=== PATIENT | male | born 1930 | race Caucasian/White ===

== ENCOUNTER 2017-11-13 10:01 | Observation (INO) | payer MEDICARE ==
[2017-11-13 10:46] LABS: #Basophils 0.1 thou/uL (0.0-0.2); #Eosinphils 0.2 thou/uL (0.0-0.7); #Lymphocytes 1.7 thou/uL (1.20-3.40); #Neutrophils 6.8 thou/uL (1.40-6.50); %Basophils 0.6 % (0.0-1.0); %Eosinophils 2.1 % (0.0-10.0); %Lymphocytes 17.8 % (21.0-51.0); %Monocytes 10.2 % (0.0-10.0); %Neutrophils 69.3 % (42.0-75.0); Hemoglobin 13.5 g/dL (14.0-18.0); Mean Corpuscular HGB CONC 34.6 g/dL (32.0-36.0); Mean Corpuscular Volume 86.9 fL (78.0-98.0); Mean Platelet Volume 7.6 fL (7.4-10.4); Platelet Count 206 thou/uL (130-400); RBC Distribution Width 13.2 % (11.5-14.5); White Blood Cell (WBC) Count 9.8 thou/uL (4.8-10.8)
[2017-11-13 11:08] LABS: ALT (SGPT) 14 U/L (8-55); AST (SGOT) 17 U/L (5-34); Albumin 4.1 g/dL (3.4-4.8); Alkaline Phosphatase 92 U/L (40-150); Anion Gap 14 mmol/L (10-20); BUN (Urea Nitrogen) 16 mg/dL (8.4-25.7); Bilirubin, Total 0.5 mg/dL (0.2-1.2); Calc. Creatinine Clearance 0 mL/min (70-130); Calcium 10.2 mg/dL (7.8-10.44); Carbon Dioxide 26 mmol/L (23-31); Chloride 97 mmol/L (98-107); Estimated GFR-MDRD 72; Globulin 3.9 g/dL (2.4-3.5); Glucose 100 mg/dL (83-110); Magnesium 1.9 mg/dL (1.6-2.6); Potassium 3.3 mmol/L (3.5-5.1); Sodium 134 mmol/L (136-145)
[2017-11-13 11:13] LABS: CKMB 1.1 ng/mL (0-6.6); Troponin I Less than 0.010 ng/mL (< 0.028)
[2017-11-13] MEDS ORDERED: Potassium Bicarbonate/Cit Ac 25 MEQ TAB ONE (11:25)
--- NOTE | 2017-11-13 11:25 | RAD ---
PORTABLE CHEST: Date: 11/13/17 PROVIDED CLINICAL HISTORY: Chest pain. FINDINGS: Comparison with 07/10/11. Cardiac and mediastinal silhouette unchanged in appearance. Vascular calcification involves the aorti c arch. Lungs are hypoinflated with probable bibasilar subsegmental atelectatic change. No definite f ocal consolidation, pleural fluid, or pneumothorax apparent. IMPRESSION: No evidence for an acute cardiopulmonary process. POS: [facility]
[2017-11-13] MEDS ORDERED: Loperamide HCl 2 MG CAP PO PRN (13:30)
[2017-11-13] MEDS ORDERED: Acetaminophen 325 MG TAB PO PRN (13:30)
[2017-11-13] MEDS ORDERED: NS 0.9% w/ 20 MEQ KCL 1,000 ML/1,000 ML BAG IV SCH (13:30)
[2017-11-13] MEDS ORDERED: hydrALAZINE 20 MG/ML VIAL SLOW IVP PRN (13:30)
[2017-11-13] MEDS ORDERED: Milk Of Magnesia 30 ML UDCUP PO PRN (13:30)
[2017-11-13] MEDS ORDERED: Eucerin (Mineral Oil/Petrolatum,White) 30 gm Jar TOP PRN (13:30)
[2017-11-13] MEDS ORDERED: Mag-Al 1200 mg/1200 mg/30 ML UDCUP PO PRN (13:30)
[2017-11-13] MEDS ORDERED: HYDROcodone/Acetaminophen 5/325 mg Tablet PO PRN (13:30)
[2017-11-13] MEDS ORDERED: Chloraseptic Spray 180 ml Bottle PO PRN (13:30)
[2017-11-13] MEDS ORDERED: Diabetic Tussin 200 MG/10 ML UDCUP PO PRN (13:30)
[2017-11-13] MEDS ORDERED: Ondansetron ODT 4 MG TAB PO PRN (13:30)
[2017-11-13] MEDS ORDERED: Sodium Chloride 0.65% Nasal 44 ML BOT EA NARE PRN (13:30)
[2017-11-13] MEDS ORDERED: Ondansetron HCl/PF 4 MG/2 ML Vial IVP PRN (13:30)
[2017-11-13] MEDS ORDERED: Artificial Tears 18 DROP/0.9 ML EA EYE PRN (13:30)
[2017-11-13] MEDS ORDERED: Zolpidem Tartrate 5 MG TAB PO PRN (13:30)
[2017-11-13] MEDS ORDERED: Senokot 8.6 MG TAB PO PRN (13:30)
[2017-11-13] MEDS ORDERED: Loratadine 10 MG TAB PO PRN (13:30)
--- NOTE | 2017-11-13 13:35 | HP ---
DATE OF ADMISSION: 11/13/2017 PRIMARY CARE PHYSICIAN: Willem Jorgensen M.D. REASON FOR ADMISSION: Recurrent syncope. HISTORY OF PRESENT ILLNESS: An 87-year-old male who has a history of hypertension, gout, benign enla rgement of prostate, who was brought to emergency room by family member for recurrent syncope. The adrianna vázquez's family member reports that for last 6 weeks, he had 5-6 episodes of syncope. The patient is not a good historian. He reports that before passing out, he sees weird sometimes bright light and sometimes blurred vision, but he attributes it to his macular degeneration. Subsequently, he momenta natalia passes out. He never had any chest pain, palpitation, shortness of breath before passing out or after regaining consciousness. It is also unclear from his description that the patient is complete ly losing his consciousness. This type of episode happens randomly, even at rest, while he is drivin g or walking, but surprisingly he never had any episode related fall or injury. Today in the emergency room, the patient is found with hypokalemia, but the patient is taking diureti c therapy for his hypertension. His routine blood test was otherwise unremarkable. EKG was showing multiple PVCs. At this point, we are admitting this patient for more evaluation. REVIEW OF SYSTEMS: The following complete review of systems was negative, unless otherwise mentioned in the HPI or below: Constitutional: Weight loss or gain, ability to conduct usual activities. Sk in: Rash, itching. Eyes: Double vision, pain. ENT/Mouth: Nose bleeding, neck stiffness, pain, te nderness. Cardiovascular: Palpitations, dyspnea on exertion, orthopnea. Respiratory: Shortness of breath, wheezing, cough, hemoptysis, fever or night sweats. Gastrointestinal: Poor appetite, abdom inal pain, heartburn, nausea, vomiting, constipation, or diarrhea. Genitourinary: Urgency, frequenc y, dysuria, nocturia. Musculoskeletal: Pain, swelling. Neurologic/Psychiatric: Anxiety, depressio n. Allergy/Immunologic: Skin rash, bleeding tendency. Please see my HPI for pertinent positive and negative. All other review of systems reviewed and nega tive except as mentioned in the HPI. ALLERGIES: No known drug allergy. CURRENT HOME MEDICATIONS: Norvasc 10 mg daily, lisinopril 40 mg p.o. daily, allopurinol 100 mg p.o. daily, Proscar 5 mg p.o. daily, hydrochlorothiazide 50 mg p.o. daily, Flomax 0.4 mg p.o. daily, aspir in 325 mg p.o. daily. PAST MEDICAL HISTORY: Macular degeneration followed by flat locker and the patient is getting in tra-ophthalmic injection therapy, gastroesophageal reflux disease, hypertension, gout, osteoarthritis , benign enlargement of prostate. PAST SURGICAL HISTORY: Cataract surgery, surgery for macular degeneration, orthopedic surgery. PAST PSYCHIATRIC HISTORY: Reviewed and negative. SOCIAL HISTORY: The patient lives at home. He drinks alcohol socially. He denies any smoking. He denies any other illicit drug abuse. He is an ex-smoker, but quit smoking more than 10 years ago. FAMILY HISTORY: No strong family history of premature coronary artery disease, stroke or cancer. EMERGENCY ROOM COURSE: The patient is given potassium chloride 25 mEq. PHYSICAL EXAMINATION: VITAL SIGNS: On arrival, blood pressure 145/71, pulse 70, respiratory rate 18, temperature 98.1, sat uration 94% on room air, weight 79.4 kilograms. GENERAL: The patient is currently alert, awake, in no obvious acute distress. HEAD: Normocephalic, atraumatic. EYES: Pupils round and reactive to light. Extraocular muscle intact. ENT: Oropharynx within normal limits. Moist mucous membrane. No oral lesion, no pharyngeal erythem a, no exudate. NECK: Supple, no JVD, no thyromegaly, no carotid bruit, no jugular venous distention. LUNGS: Clear to auscultation without any rhonchi or rales. CARDIAC: S1, S2 regular. Occasional premature ventricular contractions felt. No murmur elicited, n o gallop, no rub. ABDOMEN: Soft, bowel sounds present, nontender, nondistended. No organomegaly, no mass, no suprapub ic tenderness. BACK: Unremarkable. No CVA tenderness. EXTREMITIES: Upper extremities, passive movement of all joints are normal. Lower extremities, no ed grace, no calf tenderness. Good distal pulsation. SKIN: No skin rash. HEMATOLOGICAL: No lymphadenopathy. PSYCHIATRIC: Normal affect. NEUROLOGIC: Nonfocal examination. Motor 5/5 in all four limbs. Sensation bilaterally symmetrical. The patient has difficulty performing cerebellar sign because of his macular degeneration and chroni c blurred vision. Cranial nerves II-XII intact. Reflexes symmetrical. Plantar bilateral flexor. SIGNIFICANT LABORATORY DATA: EKG showing normal sinus rhythm, premature ventricular complexes. Ches t x-ray based on my review, no acute cardiopulmonary process. CBC, WBC 9.8, hemoglobin 13.5, platele t 206,000. BMP, sodium 134, potassium 3.3, chloride 97, carbon dioxide 26, BUN 16, creatinine 0.99, glucose 100, calcium 10.2. LFT, AST 17, ALT 14, alkaline phosphatase 92, albumin 4.1, magnesium 1.9. Cardiac enzymes, CK-MB 1.1. Troponin less than 0.010. TSH 2.09. ASSESSMENT AND PLAN: 1. Recurrent syncope, unexplained. At this point, the patient will need more evaluation to determin e the etiology. We will obtain echocardiography to assess ejection fraction and other structural abn ormality. Telemetry monitoring for any kind of ventricular or atrial arrhythmia. Orthostatic vitals to rule out orthostatic hypotension. Carotid ultrasound to rule out any carotid stenosis. Based on this investigation, we will decide whether he needs any more investigation like MRI or not. If all investigations are negative, then the patient was advised to follow up with Cardiology as an outpatie nt basis for Holter monitoring. 2. Hyponatremia and hypokalemia. We will give him 1 liter of NS with KCl at 75 mL per hour. Most l ikely, these abnormal electrolytes are related with his hydrochlorothiazide. 3. Hypertension. We will continue the patient's home medication of lisinopril 40 mg p.o. daily, Nor vasc 10 mg p.o. daily. We are holding hydrochlorothiazide for this reason because of abnormal electr olytes. 4. Benign enlargement of prostate. We will continue with Flomax 0.4 mg p.o. daily, Proscar 5 mg p.o . daily. 5. Gout. We will continue allopurinol 100 mg p.o. daily. 6. Deep venous thrombosis prophylaxis not needed because we are expecting discharge in 24 hours. 7. Gastrointestinal prophylaxis, Pepcid 20 mg p.o. b.i.d. 8. Code status: The patient is full code. The patient's is surrogate decision maker. Disposition plan based on clinical course. We are expecting the patient's stay in hospital 24 hours. During this admission, we will also rule out acute coronary syndrome with serial cardiac enzyme. P sandrine of care discussed with the patient and family member at bedside in the emergency room.
[2017-11-13 14:06] VITALS: BMI 26.6
[2017-11-13 14:52] LABS: Troponin I Less than 0.010 ng/mL (< 0.028)
[2017-11-13 17:36] LABS: Troponin I Less than 0.010 ng/mL (< 0.028)
--- NOTE | 2017-11-13 17:54 | ULT ---
BILATERAL CAROTID DOPPLER ULTRASOUND 11/13/17 HISTORY: Syncope. COMPARISON: None. TECHNIQUE: Real time almaraz scale, color doppler and spectral analysis of the extracranial carotid arteries and ve rtebral arteries was performed. Abnormal increased peak systolic velocity within the left internal carotid artery. Antegrade flow bot h vertebral arteries. Extensive atherosclerotic plaque. IMPRESSION: 50-60% stenosis right internal carotid artery. Nonemergent CT angiogram may be beneficial if clinical ly warranted. POS: [facility]
[2017-11-13] MEDS: Famotidine 20 MG TAB PO SCH (20:19)
[2017-11-14 04:07] LABS: #Eosinphils 0.5 thou/uL (0.0-0.7); #Lymphocytes 1.7 thou/uL (1.20-3.40); #Monocytes 0.8 thou/uL (0.11-0.59); #Neutrophils 4.4 thou/uL (1.40-6.50); %Basophils 0.5 % (0.0-1.0); %Eosinophils 6.9 % (0.0-10.0); %Lymphocytes 22.9 % (21.0-51.0); %Monocytes 10.7 % (0.0-10.0); %Neutrophils 59.1 % (42.0-75.0); Hemoglobin 12.5 g/dL (14.0-18.0); Mean Corpuscular HGB CONC 34.8 g/dL (32.0-36.0); Mean Corpuscular Hemoglobin 30.6 pg (27.0-31.0); Mean Corpuscular Volume 87.8 fL (78.0-98.0); Mean Platelet Volume 7.6 fL (7.4-10.4); Platelet Count 198 thou/uL (130-400); RBC Distribution Width 13.2 % (11.5-14.5); Red Blood Cell (RBC) Count 4.09 mill/uL (4.70-6.10); White Blood Cell (WBC) Count 7.5 thou/uL (4.8-10.8)
[2017-11-14 04:23] LABS: Anion Gap 13 mmol/L (10-20); BUN (Urea Nitrogen) 12 mg/dL (8.4-25.7); Calc. Creatinine Clearance 71 mL/min (70-130); Calcium 9.5 mg/dL (7.8-10.44); Carbon Dioxide 25 mmol/L (23-31); Chloride 101 mmol/L (98-107); Estimated GFR-MDRD 85; Glucose 111 mg/dL (83-110); Potassium 3.8 mmol/L (3.5-5.1); Sodium 135 mmol/L (136-145)
[2017-11-14] MEDS: Amlodipine 10 MG TAB PO SCH (09:26)
[2017-11-14] MEDS: Aspirin 325 MG TAB PO SCH (09:26)
[2017-11-14] MEDS: Allopurinol 100 MG TAB PO SCH (09:26)
[2017-11-14] MEDS: Famotidine 20 MG TAB PO SCH ×2 (09:27→20:24)
[2017-11-14] MEDS: Lisinopril 20 MG TAB PO SCH (09:27)
[2017-11-14] MEDS: Tamsulosin HCl 0.4 MG CAP PO SCH (09:27)
[2017-11-14] MEDS: Finasteride 5 MG TAB PO SCH (09:27)
--- NOTE | 2017-11-14 13:36 | PDOC.PN ---
- Subjective Encounter Start Date: 11/14/17 Encounter Start Time: 13:20 Subjective: nsg notes rev, keith ovn, no further episodes - Objective Resuscitation Status: Resuscitation Status FULL:Full Resuscitation Vital Signs & Weight: Vital Signs (12 hours) Temp Pulse Resp BP BP BP BP 11/14/17 11:13 97.5 F L 66 18 156/70 H 11/14/17 09:27 134/75 11/14/17 09:26 51 L 131/75 11/14/17 07:39 98 F 51 L 20 123/73 123/67 11/14/17 04:09 97.9 F 74 16 147/79 H BP Pulse Ox 11/14/17 11:13 95 11/14/17 09:27 11/14/17 09:26 11/14/17 07:39 131/75 94 L 11/14/17 04:09 82 L Weight Weight 175 lb I&O: 11/13/17 11/14/17 11/15/17 06:59 06:59 06:59 Intake Total 2225 360 Output Total 825 Balance 1400 360 Result Diagrams: 11/14/17 03:32 11/14/17 03:32 Phys Exam - Physical Examination Constitutional: NAD seated in hospital bed HEENT: moist MMs, oral pharynx no lesions Respiratory: no wheezing, no rales, no rhonchi, clear to auscultation bilateral Cardiovascular: RRR, no significant murmur, no rub tele rev - PVCs Gastrointestinal: soft, positive bowel sounds Musculoskeletal: no edema, pulses present Neurological: moves all 4 limbs Psychiatric: normal affect Dx/Plan - Plan * brief near-syncope type neurological events * had some orthostasis on admission along with hypokalemia * HCTZ was discontinued, hypokalemia and orthostasis has resolved without recurrence today; however, given the descriptive nature of the patient's "episodes" concern for a partial/ absence/ atypical seizure type activity. appreciate neurology c/s and input * continue to closely monitor SBP and re-check orthostatics tomorrow PVCs noted on monitor but temporally do not appear to be associated with episodes continue telemetry hypertension relative hypotension on presentation titrate o/p regimen to avoid orthostasis and control HTN diet: as yuniel activity: as yuniel dvt ppx d/w pt and his at bedside d/w bedside nursing Review of Systems - Medications/Allergies Allergies/Adverse Reactions: Allergies Allergy/AdvReac Type Severity Reaction Status Date / Time No Known Allergies Allergy Verified 11/13/17 14:24 Medications: Current Medications Acetaminophen (Tylenol) 650 mg PO Q4H PRN PRN Reason: Headache/Fever or Pain Hydrocodone Bitart/Acetaminophen ([place] 5/325) 1 tab PO Q4H PRN PRN Reason: Moderate Pain (4-6) Al Hydroxide/Mg Hydroxide (Maalox) 30 ml PO Q6H PRN PRN Reason: Heartburn or Indigestion Allopurinol (Zyloprim) 100 mg PO DAILY [facility] Last Admin: 11/14/17 09:26 Dose: 100 mg Amlodipine Besylate (Norvasc) 10 mg PO DAILY [facility] Last Admin: 11/14/17 09:26 Dose: 10 mg Artificial Tears (Tears Naturale) 0 drop EA EYE PRN PRN PRN Reason: Dry Eyes Aspirin (Aspirin) 325 mg PO DAILY [facility] Last Admin: 11/14/17 09:26 Dose: 325 mg Famotidine (Pepcid) 20 mg PO BID [facility] Last Admin: 11/14/17 09:27 Dose: 20 mg Finasteride (Proscar) 5 mg PO DAILY [facility] Last Admin: 11/14/17 09:27 Dose: 5 mg Guaifenesin (Robitussin Sf) 200 mg PO Q4H PRN PRN Reason: Cough Hydralazine HCl (Apresoline) 10 mg SLOW IVP Q4H PRN PRN Reason: Systolic BP > 180 Lisinopril (Zestril) 40 mg PO DAILY [facility] Last Admin: 11/14/17 09:27 Dose: 40 mg Loperamide HCl (Imodium) 2 mg PO PRN PRN PRN Reason: Diarrhea/Loose Stools Loratadine (Claritin) 10 mg PO DAILYPRN PRN PRN Reason: Sinus Symptoms Magnesium Hydroxide (Milk Of Magnesium) 30 ml PO DAILYPRN PRN PRN Reason: Constipation Mineral Oil/White Petrolatum (Eucerin Cream) 0 gm TOP BIDPRN PRN PRN Reason: Dry Skin Ondansetron HCl (Zofran Odt) 4 mg PO Q6H PRN PRN Reason: Nausea/Vomiting Ondansetron HCl (Zofran) 4 mg IVP Q6H PRN PRN Reason: Nausea/Vomiting Phenol (Chloraseptic [place] 180 Ml Bot) 0 ml PO PRN PRN PRN Reason: Sore Throat Senna (Senokot) 2 tab PO HSPRN PRN PRN Reason: Constipation Sodium Chloride ([place] Nasal [place] 0.65%) 0 ml EA NARE QIDPRN PRN PRN Reason: Nasal Congestion Tamsulosin HCl (Flomax) 0.4 mg PO DAILY [facility] Last Admin: 11/14/17 09:27 Dose: 0.4 mg Zolpidem Tartrate (Ambien) 5 mg PO HSPRN PRN PRN Reason: Insomnia
--- NOTE | 2017-11-14 13:58 | CON ---
DATE OF CONSULTATION: 11/14/2017 CONSULTING PHYSICIAN: Hospitalist Service. IMPRESSION: Possible partial seizures. PLAN: 1. MRI of the brain with contrast. 2. Dilantin 300 mg per day. 3. Office followup. HISTORY OF PRESENT ILLNESS: Mr. Ortiz is an 87-year-old gentleman who presented with a 6-week hist ory of episodes where he briefly loses awareness. He reports there is some mild nausea associated wi th it, but he denies any chest pain, throat tightness, shortness of breath, headache, or palpitations . He has had in both sitting as well as standing up. He has not fallen down due to the brevity of t he events. He apparently had 2 episodes captured on EKG monitoring, nothing remarkable was found. Seng medina made some adjustments in his blood pressure medicine to see if that has any impact on it. I was called to give a neurologic opinion. PAST MEDICAL HISTORY: Otherwise, unremarkable. FAMILY HISTORY: Noncontributory. SOCIAL HISTORY: He is and lives at home with his . He is still driving. He does not sm frandy or drink. MEDICATION: List is reviewed. REVIEW OF SYSTEMS: Otherwise, negative for any past history of stroke-like symptoms, head injuries, meningitis or encephalitis. PHYSICAL EXAMINATION: GENERAL: He is a well-nourished elderly man sitting up at the bedside in no distress. HEENT: Pupils equal and reactive. Conjunctivae clear. Oropharynx is clear. NECK: Supple. EXTREMITIES: No cyanosis. NEUROLOGIC: He is alert and appropriate. His exam is nonfocal. No abnormal movements were seen. IMAGING DATA: Carotid ultrasound did not show any significant stenosis. Echocardiogram is pending. LABORATORY STUDIES: Reviewed and appear unremarkable. SUMMARY: Elderly man with a 6-week history of brief episodes of alteration of consciousness. He reynaga s not seem to have an arrhythmia to explain his symptoms. Brief hypotension would be a consideration as well. We will give him a trial of Dilantin and see if it alters the frequency of his events.
--- NOTE | 2017-11-14 17:20 | MRI ---
MRI BRAIN WITH AND WITHOUT CONTRAST: HISTORY: Seizures. COMPARISON: CT brain from the prior day. FINDINGS: On the T2 weighted imaging sequence, there are no abnormal areas of acute diffusion restriction to chatterjee ggest infarction. This is confirmed on the ADC map. There is right parietal and frontal and left parietal encephalomalacia. There are extensive microvas cular ischemic changes in the mao radiata. 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 No midline shift or mass effect. Erosive changes of the odontoid process are present. Marrow signal in the clivus is maintained. The corpus callosum is intact. No abnormal foci of enhancement. IMPRESSION: 1. Chronic changes. No acute hemorrhage or infarct. 2. No abnormal enhancing mass. POS: [facility]
[2017-11-15 04:41] LABS: #Eosinphils 0.4 thou/uL (0.0-0.7); #Lymphocytes 1.6 thou/uL (1.20-3.40); #Monocytes 0.9 thou/uL (0.11-0.59); %Basophils 0.4 % (0.0-1.0); %Eosinophils 4.8 % (0.0-10.0); %Monocytes 11.3 % (0.0-10.0); %Neutrophils 63.4 % (42.0-75.0); Hemoglobin 12.2 g/dL (14.0-18.0); Mean Corpuscular HGB CONC 34.2 g/dL (32.0-36.0); Mean Corpuscular Hemoglobin 29.8 pg (27.0-31.0); Mean Corpuscular Volume 87.2 fL (78.0-98.0); Mean Platelet Volume 7.5 fL (7.4-10.4); Platelet Count 195 thou/uL (130-400); RBC Distribution Width 13.1 % (11.5-14.5); White Blood Cell (WBC) Count 7.9 thou/uL (4.8-10.8)
[2017-11-15 04:50] LABS: Anion Gap 15 mmol/L (10-20); BUN (Urea Nitrogen) 12 mg/dL (8.4-25.7); Calc. Creatinine Clearance 74 mL/min (70-130); Calcium 9.7 mg/dL (7.8-10.44); Carbon Dioxide 22 mmol/L (23-31); Chloride 102 mmol/L (98-107); Estimated GFR-MDRD 89; Glucose 115 mg/dL (83-110); Potassium 3.1 mmol/L (3.5-5.1); Sodium 136 mmol/L (136-145)
[2017-11-15] MEDS ORDERED: Potassium Chloride 20 MEQ TAB PO SCH (07:45)
[2017-11-15] MEDS ORDERED: Iopamidol 370 76% 100 ML VIAL ONE (08:28)
[2017-11-15] MEDS: Lisinopril 20 MG TAB PO SCH (08:43)
[2017-11-15] MEDS: Aspirin 325 MG TAB PO SCH (08:43)
[2017-11-15] MEDS: Finasteride 5 MG TAB PO SCH (08:44)
[2017-11-15] MEDS: Tamsulosin HCl 0.4 MG CAP PO SCH (08:44)
[2017-11-15] MEDS: Allopurinol 100 MG TAB PO SCH (08:44)
[2017-11-15] MEDS: Famotidine 20 MG TAB PO SCH (08:44)
[2017-11-15] MEDS: Amlodipine 10 MG TAB PO SCH (08:44)
--- NOTE | 2017-11-15 11:08 | PDOC.PN ---
- Subjective Encounter Start Date: 11/15/17 Encounter Start Time: 07:40 -: old records requested/rev pt did not tolerate dilantin therapy and he does not want that meds on discharge - Objective Resuscitation Status: Resuscitation Status FULL:Full Resuscitation MAR Reviewed: Yes Vital Signs & Weight: Vital Signs (12 hours) Temp Pulse Resp BP BP Pulse Ox 11/15/17 08:43 160/90 H 11/15/17 07:32 98.1 F 83 20 116/67 95 11/15/17 03:43 98.2 F 65 20 150/91 H 94 L Weight Weight 170 lb I&O: 11/14/17 11/15/17 11/16/17 06:59 06:59 06:59 Intake Total 2225 1920 360 Output Total 825 700 Balance 1400 1220 360 Result Diagrams: 11/15/17 03:46 11/15/17 03:46 EKG Reviewed by me: Yes (nsr) Phys Exam - Physical Examination Constitutional: NAD HEENT: PERRLA, moist MMs, sclera anicteric Neck: no JVD, supple Respiratory: no wheezing, no rales, no rhonchi Cardiovascular: RRR, no significant murmur, no rub Gastrointestinal: soft, non-tender, no distention, positive bowel sounds Musculoskeletal: no edema, pulses present Neurological: non-focal, normal sensation Lymphatic: no nodes Psychiatric: normal affect, A&O x 3 Skin: no rash, normal turgor Dx/Plan (1) Carotid stenosis, right Code(s): I65.21 - OCCLUSION AND STENOSIS OF RIGHT CAROTID ARTERY Status: Acute (2) Hypokalemia Code(s): E87.6 - HYPOKALEMIA Status: Acute (3) Partial seizure Status: Suspected (4) Recurrent syncope Code(s): R55 - SYNCOPE AND COLLAPSE Status: Acute (5) BPH (benign prostatic hyperplasia) Code(s): N40.0 - BENIGN PROSTATIC HYPERPLASIA WITHOUT LOWER URINRY TRACT SYMP Status: Chronic (6) Gout Code(s): M10.9 - GOUT, UNSPECIFIED Status: Chronic (7) Hypertension Code(s): I10 - ESSENTIAL (PRIMARY) HYPERTENSION Status: Chronic - Plan cont current plan of care, plan discussed w/ family * will get CT angio neck for carotid stenosis on US * medication reviewed as below * symptomatic treatment * pt does not want dilantin * will consider discharge later today * add lipitor on discharge. Review of Systems - Review of Systems ENT: negative: Ear Pain, Ear Discharge, Nose Pain, Nose Discharge, Nose Congestion, Mouth Pain, Mouth Swelling, Throat Pain, Throat Swelling, Other Respiratory: negative: Cough, Dry, Shortness of Breath, Hemoptysis, SOB with Excertion, Pleuritic Pain, Sputum, Wheezing Cardiovascular: negative: chest pain, palpitations, orthopnea, paroxysmal nocturnal dyspnea, edema, light headedness, other Gastrointestinal: negative: Nausea, Vomiting, Abdominal Pain, Diarrhea, Constipation, Melena, Hematochezia, Other Genitourinary: negative: Dysuria, Frequency, Incontinence, Hematuria, Retention , Other Musculoskeletal: negative: Neck Pain, Shoulder Pain, Arm Pain, Back Pain, Hand Pain, Leg Pain, Foot Pain, Other Skin: negative: Rash, Lesions, [place], Bruising, Other - Medications/Allergies Allergies/Adverse Reactions: Allergies Allergy/AdvReac Type Severity Reaction Status Date / Time No Known Allergies Allergy Verified 11/13/17 14:24 Medications: Current Medications Acetaminophen (Tylenol) 650 mg PO Q4H PRN PRN Reason: Headache/Fever or Pain Hydrocodone Bitart/Acetaminophen ([place] 5/325) 1 tab PO Q4H PRN PRN Reason: Moderate Pain (4-6) Al Hydroxide/Mg Hydroxide (Maalox) 30 ml PO Q6H PRN PRN Reason: Heartburn or Indigestion Allopurinol (Zyloprim) 100 mg PO DAILY [facility] Last Admin: 11/15/17 08:44 Dose: 100 mg Amlodipine Besylate (Norvasc) 10 mg PO DAILY [facility] Last Admin: 11/15/17 08:44 Dose: 10 mg Artificial Tears (Tears Naturale) 0 drop EA EYE PRN PRN PRN Reason: Dry Eyes Aspirin (Aspirin) 325 mg PO DAILY [facility] Last Admin: 11/15/17 08:43 Dose: 325 mg Famotidine (Pepcid) 20 mg PO BID [facility] Last Admin: 11/15/17 08:44 Dose: 20 mg Finasteride (Proscar) 5 mg PO DAILY [facility] Last Admin: 11/15/17 08:44 Dose: 5 mg Guaifenesin (Robitussin Sf) 200 mg PO Q4H PRN PRN Reason: Cough Hydralazine HCl (Apresoline) 10 mg SLOW IVP Q4H PRN PRN Reason: Systolic BP > 180 Lisinopril (Zestril) 40 mg PO DAILY [facility] Last Admin: 11/15/17 08:43 Dose: 40 mg Loperamide HCl (Imodium) 2 mg PO PRN PRN PRN Reason: Diarrhea/Loose Stools Loratadine (Claritin) 10 mg PO DAILYPRN PRN PRN Reason: Sinus Symptoms Magnesium Hydroxide (Milk Of Magnesium) 30 ml PO DAILYPRN PRN PRN Reason: Constipation Mineral Oil/White Petrolatum (Eucerin Cream) 0 gm TOP BIDPRN PRN PRN Reason: Dry Skin Ondansetron HCl (Zofran Odt) 4 mg PO Q6H PRN PRN Reason: Nausea/Vomiting Ondansetron HCl (Zofran) 4 mg IVP Q6H PRN PRN Reason: Nausea/Vomiting Phenol (Chloraseptic [place] 180 Ml Bot) 0 ml PO PRN PRN PRN Reason: Sore Throat Phenytoin Sodium (Dilantin Er) 300 mg PO QPM [facility] Last Admin: 11/14/17 20:24 Dose: 300 mg Senna (Senokot) 2 tab PO HSPRN PRN PRN Reason: Constipation Last Admin: 11/14/17 20:23 Dose: 2 tab Sodium Chloride ([place] Nasal [place] 0.65%) 0 ml EA NARE QIDPRN PRN PRN Reason: Nasal Congestion Tamsulosin HCl (Flomax) 0.4 mg PO DAILY [facility] Last Admin: 11/15/17 08:44 Dose: 0.4 mg Zolpidem Tartrate (Ambien) 5 mg PO HSPRN PRN PRN Reason: Insomnia
[2017-11-15 12:05] VITALS: BP 131/87; TEMP 97.5
--- NOTE | 2017-11-15 12:27 | CT ---
CT ANGIOGRAM OF NECK: Date: 11/15/17 HISTORY: Abnormal carotid ultrasound. Moderate stenosis of the right internal carotid artery based on sonograp hy. TECHNIQUE: CT angiogram of the neck is performed in the axial plane. Three-dimensional reformatted images are chatterjee bmitted for interpretation. FINDINGS: Mild mucosal thickening involving the left maxillary sinus. Adequate mastoid air cell aeration. Visua lized brain parenchyma is unremarkable. Aerodigestive tract is patent. No mucosal abnormality. [place] e fatty [place] of the tongue is preserved. Symmetric attenuation of the parotid and submandibular glands. Symmetric attenuation of the sternocleidomastoid muscles. There are nonspecific, nonenlarged soft tissue neck lymph nodes. Heterogeneous right thyroid lobe. Nonemergent thyroid ultrasound is recommended. There are varying degrees of central canal stenosis and foraminal narrowing on the basis of degenerat maya change. There is degenerative disc disease throughout the cervical spine with loss of disc space height and osteophyte formation. Grade I anterolisthesis of C5 upon C6. Cervical spine vertebral body height is maintained. There is no fracture. Upper mediastinum is unremarkable. Nonspecific ground-glass opacities in the lung apices. CT ANGIOGRAM: There is atherosclerosis of a nonaneurysmal aortic arch. Right Carotid: The origin of the right carotid artery has appropriate enhancement and luminal diamet er. Atherosclerosis of calcified and noncalcified plaque in the right carotid bifurcation and proxima l internal carotid artery. No evidence of hemodynamically significant stenosis based upon NASCET crit eria. There is a sharp hairpin turn involving the mid internal carotid artery at approximately the C3 level. Left Carotid: The origin of the left carotid artery has appropriate enhancement and luminal diameter . Left common carotid artery and carotid bifurcation have appropriate enhancement and luminal diameter. There is calcified plaque involving the proximal left internal carotid artery. Based upon NASCET cri teria, there does appear to be hemodynamically significant stenosis involving the proximal left inter nal carotid artery. Luminal diameter appears to be approximately 2.7 mm. There is a hairpin turn invo lving the mid left internal carotid artery at the C3 level. There is resultant medial deviation of th e left and right internal carotid artery with mass effect upon the hypopharynx posteriorly. The remai nder of the left internal carotid artery is unremarkable. Both subclavian arteries are patent. Both vertebral artery origins are unremarkable. Both cervical vertebral arteries are patent throughou t their course in the neck. IMPRESSION: Atherosclerosis involving both carotid arteries. Based upon NASCET criteria, there does appear to be severe stenosis involving the proximal left internal carotid artery. Conventional angiography may be beneficial to better evaluate the overall luminal diameter given extensive calcified plaque bilateral ly. POS: [facility]
--- NOTE | 2017-11-15 13:20 | DIS ---
DATE OF ADMISSION: 11/13/2017 DATE OF DISCHARGE: 11/15/2017 PRIMARY CARE PHYSICIAN: Dr. Willem Jorgensen. DISCHARGE DISPOSITION: Home. PRIMARY DISCHARGE DIAGNOSES: 1. Recurrent syncope. 2. Hypokalemia. 3. Right carotid stenosis. SECONDARY DISCHARGE DIAGNOSES: Hypertension, gout, benign enlargement of prostate. PRIMARY PROCEDURE AND OPERATION: None. RADIOLOGICAL INVESTIGATION: Chest x-ray normal. Carotid Doppler showed right carotid stenosis. CT angiography neck showed carotid stenosis with a calcified plaque. Echocardiography showed normal EF. Brain MRI showed old lacunar stroke and encephalomalacia. SIGNIFICANT LABORATORY DATA: WBC 7.9, hemoglobin 12.2, platelet 195. Sodium 136, potassium 3.1, BUN 12, creatinine 0.82, calcium 9.7. Cardiac enzymes negative x3. TSH 2.09. LFT normal. DISCHARGE MEDICATIONS: Aspirin 325 mg p.o. daily, Lipitor 10 mg p.o. daily, amlodipine 10 mg p.o. da gildardo, allopurinol 100 mg p.o. daily, Proscar 5 mg p.o. daily, lisinopril 40 mg p.o. daily, multivitami n 2 tablets p.o. b.i.d., Senokot 1 tablet p.o. daily p.r.n., Flomax 0.4 mg p.o. daily. CONTRAINDICATIONS: None. CODE STATUS: FULL CODE. INPATIENT CONSULTANTS: 1. Dr. Alvaro Gutierrez, neurologist, was consulted while in hospital. He recommended Dilantin therapy, but this patient did not want to continue Dilantin therapy upon discharge, because he did not tolera te that medication. He rather wanted to follow up with him as an outpatient basis to decide alternat maya therapy. 2. Dr. Jonathan Champion was consulted for carotid stenosis. TEST RESULTS PENDING ON DISCHARGE: None. ALLERGIES: No known drug allergy. DISCHARGE PLAN: Post hospital, the patient will follow up with primary care physician, Neurology, an d Dr. Jonathan Champion as instructed. HOSPITAL COURSE: An 87-year-old male who has above-mentioned medical problem who was brought to [facility] room by family member for recurrent syncope. This patient had a workup in the emergency room, which was unremarkable. He had mild hyponatremia, hypokalemia which was replaced and corrected. The patient had negative cardiac enzyme and negative quality assurance monitor chassis. Carotid Doppler showed carotid stenosis on the right side and that is why CT angio was done, which showed right-sided carotid stenos is with a calcified plaque. We consulted Dr. Jonathan Champion for evaluation. This patient may need ou tpatient surgical evaluation if needed. Echocardiography was unremarkable. MRI brain showed old str frandy. Dr. John was consulted and he was suspecting partial seizure and that is why he recommended to start Dilantin therapy, but unfortunately, this patient had significant side effects with the Dila ntin therapy and he did not want to start any seizure medication. He will follow up with Dr. John as an outpatient basis. The patient is seen and examined at bedside today. Please see my progress note from today for furthe r detail. We added Lipitor on discharge. The rest of medication will be continued as per previous. Plan of care discussed with the patient's family member as well.
--- NOTE | 2017-11-15 14:56 | CON ---
DATE OF CONSULTATION: 11/15/2017 DATE OF ADMISSION: 11/13/2017 REASON FOR CONSULTATION: Evaluate the patient with bilateral carotid stenosis. HISTORY OF PRESENT ILLNESS: Mr. Ortiz is an 87-year-old gentleman, who was admitted with ocular sy mptoms and near syncope. He has a longstanding history of macular degeneration and is treated with i njections by Dr. Pena. He says that he has had a couple of episodes recently of near syncope where j ust prior to feeling like he was going to pass out he would see bright lights and explosions before h is eyes and then get this feeling of near syncope. Then he would feel very washed out after this hap pened. He has no previous history of carotid disease, stroke, TIA, [place], or congestive heart failure. PAST MEDICAL HISTORY: 1. Macular degeneration. 2. GERD. 3. Hypertension. 4. Gout. 5. Osteoarthritis. 6. BPH. PAST SURGICAL HISTORY: 1. Cataract surgery. 2. Macular degeneration surgery. 3. Orthopedic surgery. CURRENT MEDICATIONS: 1. Norvasc 10 mg every day. 2. Lisinopril 40 mg every day. 3. Allopurinol 100 mg every day. 4. Proscar 5 mg every day. 5. HCTZ 50 mg daily. 6. Flomax 0.4 mg daily. 7. Aspirin 325 mg every day. ALLERGIES: None. SOCIAL HISTORY: He is . He lives with his at home. His daughter is a day-stay nurse. He does not use tobacco, alcohol, or other drugs. REVIEW OF SYSTEMS: A 10-point review of systems is, otherwise, negative except as above. PHYSICAL EXAMINATION: GENERAL: This is an elderly gentleman, resting comfortably in a chair in his room, waiting to be dis charged. VITAL SIGNS: His height is 5 feet 8 inches, weight is 175 pounds, BSA is 1.92. Temperature is 97.5, pulse is 88 and regular, blood pressure is 131/87. HEENT: Sclerae nonicteric. Pupils equal and round bilaterally. NECK: Supple, without carotid bruit. CHEST: Clear bilaterally. HEART: Rhythm is regular, without murmur. ABDOMEN: Soft and nontender, without mass. EXTREMITIES: No cyanosis, clubbing, or edema. VASCULAR: Palpable carotid, radial, femoral, and dorsalis pedis pulses bilaterally. PSYCHIATRIC: The patient is awake, alert, and oriented to person, place, and time. RADIOLOGY: Carotid ultrasound shows a 50%-69% stenosis of the right carotid artery. There is no rep orted significant left carotid disease. CT angiogram has been performed showing a greater than 70% l eft internal carotid artery stenosis. His right internal carotid artery has multiple areas of intral uminal encroachment from calcified and noncalcified plaque concerning for embolic potential. ASSESSMENT AND PLAN: Bilateral significant carotid disease. I have discussed left carotid endartere ctomy followed by a period of time of healing and right carotid endarterectomy to follow that. He is agreeable. He is going to be discharged today to see his infection control coordinator as an outpatient, and we w ill plan on surgical intervention as he calls our office to schedule.
--- NOTE | 2017-11-20 11:53 | EKG ---
Test Reason : Blood Pressure : / mmHG Vent. Rate : 086 BPM Atrial Rate : 086 BPM P-R Int : 180 ms QRS Dur : 100 ms QT Int : 378 ms P-R-T Axes : 040 -15 043 degrees QTc Int : 452 ms Sinus rhythm with frequent Premature ventricular complexes Low voltage QRS Borderline ECG Confirmed by HARSHAL GERMAN DO ([id number]), editorial clerk HIRAM SESAY ([id number]) on 11/20/2017 11:53:03 AM Referred By: Confirmed By:HARSHAL GERMAN DO
== END 2017-11-15 15:15 | disposition home or self-care (01) ==
LOC: ERS 10:01 → 2SW 12:28
PROVIDERS: ADMIT Internal Medicine; ATTEND Internal Medicine
DX: R55 Syncope and collapse (principal); E87.6 Hypokalemia; I65.29 Occlusion and stenosis of unspecified carotid artery; I10 Essential (primary) hypertension; N20.0 Calculus of kidney; Z79.82 Long term (current) use of aspirin; Z79.899 Other long term (current) drug therapy
CPT/HCPCS: 70498; 70553; 71045; 80048 ×2; 82553; 83735; 84484 ×2; 85025 ×2; 93005; 93306; 93880; 96365; 96366 ×2; 99285; G0378 ×2; 36415; 80053; 84443

== ENCOUNTER 2017-11-19 05:45 | Inpatient (IN) | payer MEDICARE, OTHER ==
[2017-11-19] MEDS ORDERED: Heparin 5,000 UNITS/ML VIAL ONE ×2 (06:02→06:31)
[2017-11-19] MEDS ORDERED: CEFAZOLIN/Water 2 GM/20 ML SYRINGE ONE (06:03)
[2017-11-19] MEDS ORDERED: Protamine Sulfate 50 MG/5 ML VIAL ONE (06:31)
[2017-11-19] MEDS ORDERED: Remifentanil HCl 2 MG in Sodium Chloride 0.9% 100 ML IV SCH (07:15)
[2017-11-19] MEDS ORDERED: Bupivacaine HCl 0.5%/Epinephrine 1:200,000/PF 30 ml Vial ONE (07:38)
[2017-11-19] MEDS ORDERED: Fentanyl 100 MCG/2 ML VIAL ONE (08:09)
[2017-11-19] MEDS ORDERED: PHENYLEPHRINE-NS 100 MCG/ML 10 ML SYRINGE ONE ×3 (08:10→14:57)
[2017-11-19] MEDS ORDERED: ISOVUE-370 76%-LOCM 1 ML ONE (12:03)
--- NOTE | 2017-11-19 12:19 | CT ---
PRECONTRAST ENHANCED CT IMAGES OF BRAIN AND CONTRAST ENHANCED CTA BRAIN: DATE: 11/19/17. COMPARISON: Comparison is made to a previous CTA of brain from 11/13/14 and previous MRI from 11/14/17. FINDINGS: Two-D and 3D reconstructed images performed on an independent 3D work station. Noncontrast-enhanced CT images of the brain demonstrate an old area of stroke in the right parietal a nd parieto-occipital regions. This is unchanged since the previous comparison MRI from 5 days earlie r. There does appear to be a slight area of newly developed hypodensity in the left thalamus and posteri or limb of internal capsule concerning for possible thalamic area of stroke. The patient has had an interval left carotid endarterectomy. CTA images demonstrate surgical changes seen in the left neck with gas within the soft tissues. Minimal areas of calcification are present in the distal left CCA; however, the majority of the calcium in the left ICA has been removed. The graft/patch demonstrates normal caliber. Just at the takeoff of the left carotid bifurcation, there is some change in calibe r likely due to postsurgical changes. No definite evidence of significant stenosis is present. No e vidence of calcified or noncalcified plaque is seen. Good flow is seen in the entire left ICA extend ing into the intracranial vessels. The left MCA is patent without evidence of occlusive lesions. Th e [place] is patent. Images are suboptimal in the upper brain due to patient motion. Posterior circulation is also patent without evidence of significant disease. IMPRESSION: Findings concerning for a newly developed left thalamic infarction. Findings discussed with Dr. Champion at 11:02 a.m. on 11/19/17. CODE CR POS: [facility]
[2017-11-19] MEDS ORDERED: Phenylephrine 10 MG/NS 250 ML 250 ML IVPB PRN (12:44)
[2017-11-19] MEDS ORDERED: Ondansetron HCl/PF 4 MG/2 ML Vial IVP PRN (12:44)
[2017-11-19] MEDS ORDERED: Senokot 8.6 MG TAB PO PRN (12:44)
[2017-11-19] MEDS ORDERED: Nitroglycerin 50 MG/250 ML BOT 250 ML IVPB PRN (12:44)
[2017-11-19] MEDS ORDERED: Acetaminophen 325 MG TAB PO PRN (12:44)
[2017-11-19] MEDS ORDERED: Promethazine HCl 25 MG/ML VIAL IM PRN (12:44)
--- NOTE | 2017-11-19 12:45 | OP ---
DATE OF PROCEDURE: 11/19/2017 PREOPERATIVE DIAGNOSIS: Critical left carotid stenosis. POSTOPERATIVE DIAGNOSIS: Critical left carotid stenosis. PROCEDURES: 1. Left carotid endarterectomy. 2. Reexploration for postoperative neurologic changes with extension of the endarterectomy distally, patch angioplasty and shortening of the internal carotid artery. SURGEON: Jonathan Champion M.D. ANESTHESIA: General endotracheal. ESTIMATED BLOOD LOSS: 200 mL total. DRAINS: None. SPECIMENS: None. PROCEDURE IN DETAIL: After consent was obtained, the patient was brought to the operating room and p laced in supine position on the operating room table. Appropriate anesthetic monitor was placed and general anesthesia induced. Mr. Esquivel neck would not turn at all. The bed was rotated as far as was safely possible to the right. The left neck was then prepped and draped in usual sterile fashio n. Skin incision was made along the anterior border of sternocleidomastoid. Dissection down through the subcutaneous tissue was obtained with electrocautery. Facial vein branch was divided between cl ips and ties. The carotid sheath was then entered. Common internal and external carotid arteries we re carefully dissected free from surrounding tissues. The patient was systemically heparinized. Aft er 3 minutes, internal, common, and external carotid arteries were serially clamped. Incision was ma de on the carotid bulb and extended distal to the plaque in the internal carotid artery. This was a very tortuous carotid and we were under the anterior belly digastric during this part of the dissecti on. After opening the carotid, I could not get a shunt to pass; therefore, we performed the endarter ectomy under clamping. The cerebral oximetry dropped approximately 10 points while we were clamped. Endarterectomy was performed with mosquito hemostats. A good tapered distal endpoint was obtained. Medial fibers were debrided. Due to not being able to shunt, I elected to primarily close his carot id. There was a large carotid and I did not think it was going to be an issue with closure. The art fam was very thin after endarterectomy. The artery was closed with running 6-0 Prolene suture. The antegrade flow was reestablished up the external carotid artery for 10 seconds followed by the engineer internship al carotid artery. Protamine was administered. Hemostasis was ensured. Wounds were copiously irrig ated, closed in layers and Dermabond applied to the skin. The patient was awakened and had right arm , leg, and face neglect. We elected to place him back under general anesthesia. Reprepped his left neck, reopened the incision. On inspection, the carotid did not appear to be kinked. There was a pa lpable pulse within the carotid. The patient was re-heparinized with 5000 units of heparin. The car otid was mobilized approximately 0.5 cm distal to where we ended our endarterectomy site previously a nd clamped distally. The external and common carotid arteries were then clamped. A small incision w as made just distal to our suture line and the carotid artery. The internal carotid artery clamp was opened and there was excellent backbleeding. There is no evidence of thrombus within the internal c arotid artery at this level. I was concerned that the carotid could potentially kink after inspectio n, so I elected to shorten the carotid. The previous endarterectomy was completely opened again. Th ere was no thrombus. There were no free floating medial fibers. The internal carotid artery was imb ricated to shorten it by about 2 cm. The imbrication was sewn in a dual layer fashion with running 6 -0 Prolene suture. Bovine pericardial patch was then sewn in place with running 6-0 Prolene suture. Prior to completion of the patch suture line, arteries were backbled and flushed with heparinized sa line. Patch suture line was completed and tied. Antegrade flow was reestablished up the external ca rotid artery. Ten seconds later, antegrade flow was reestablished of the internal carotid artery. P rotamine was not reversed. Hemostasis was ensured. There was a palpable pulse distal to the patch. Doppler interrogation of the distal carotid artery revealed a good Doppler signal which abated with clamping of the internal carotid artery. Wounds were irrigated and again closed in layers. The calos ent was awakened and his facial droop was resolved. He still had neglect of his right arm and leg. We went and performed a CT angio of his neck and CT scan of his brain. CT angio of his neck showed g ood flow through the carotid endarterectomy with no evidence of flap or any embolic material within t he internal carotid artery or intracranial portion of the internal carotid artery. The middle cerebr al artery was widely patent. At the level of the thalamus, there appeared to be a new infarct which potentially could have been from embolic material. This was discussed with the family postoperativel y. The patient was then transferred to the recovery room in stable condition. Needle, sponge, and i nstrument counts were all reported correct at the end of the procedure.
[2017-11-19] MEDS: CEFAZOLIN/Water 2 GM/20 ML SYRINGE SLOW IVP SCH ×2 (13:56→21:38)
[2017-11-19] MEDS: hydrALAZINE 20 MG/ML VIAL SLOW IVP PRN (13:57)
[2017-11-19] MEDS: Sodium Chloride 0.9% 1,000 ML IV SCH ×2 (14:00→21:40)
[2017-11-19] MEDS ORDERED: Ondansetron HCl/PF 4 MG/2 ML Vial ONE (14:57)
[2017-11-19] MEDS ORDERED: Dexamethasone 20 MG/5 ML VIAL ONE (14:57)
[2017-11-19] MEDS ORDERED: Succinylcholine Chloride 20 MG/ML 10 ml SYRINGE FS ONE (14:57)
[2017-11-19] MEDS ORDERED: PROPOFOL 200 MG/20 ML VIAL ONE (14:57)
[2017-11-19] MEDS ORDERED: Glycopyrrolate 0.2 MG/ML 5 ML SYRINGE ONE (14:57)
[2017-11-19] MEDS ORDERED: ePHEDrine/0.9% NaCl/PF SYRINGE 50 mg/10 ml ONE (14:57)
[2017-11-19] MEDS ORDERED: Heparin 10,000 UNITS/ 10 ML VIAL ONE (14:57)
[2017-11-19] MEDS: BRIMONIDINE TARTRATE 0.2% EA EYE SCH ×2 (15:35→21:38)
[2017-11-19] MEDS: Tamsulosin HCl 0.4 MG CAP PO SCH (19:32)
--- NOTE | 2017-11-20 03:18 | CON ---
DATE OF CONSULTATION: 11/19/2017 HISTORY OF PRESENT ILLNESS: Philippe Ortiz is a pleasant 87-year-old gentleman, who was recently seen in the hospital with multiple episodes over the course of 6 weeks with a blacking out syncopal episode. During the course of workup, he was found to have carotid stenosis. He was readmitted today for left carotid endarterectomy. Postoperatively, he developed right-sided CVA. He is in the ICU. His is at the bedside and gives excellent history. The patient has smoked very minimally, he quit smoking at age 27, active most of his life. No previous history of TB, pneumonia or bronchial asthma. PAST MEDICAL HISTORY: Pertinent mainly for mild hypertension, arthritis, BPH, and gout, macular degeneration. PAST SURGICAL HISTORY: Previous surgeries including cataract surgeries, orthopedic surgery. MEDICATIONS: From home previously include lisinopril 40, Norvasc 10, Proscar 5 , Flomax 0.4, aspirin 325. SOCIAL AND FAMILY HISTORY: No recent alcohol or tobacco abuse. Otherwise, unremarkable last 10 years. He was a rancher, quit working at age 83. PHYSICAL EXAMINATION: GENERAL: He is awake, responsive, somewhat aphasic, not able to move the right side. VITAL SIGNS: Pulse 116, blood pressure 150\74, respiratory rate 16 sat 96%___ room air. CHEST: Reveals no wheezing or crackles. CARDIAC: Normal S1, S2. No gallops. ABDOMEN: Soft, no masses. IMPRESSION: 1. Status post left carotid endarterectomy. 2. Right-sided cerebrovascular accident. 3. Hypertension. 4. High cholesterol. 5. Gout. PLAN: Pulmonary Critical Care will follow while in the ICU. Agree with present treatment and aspirin, supportive care and PT. We will follow. This is 70 minutes consultation note, 50% in direct patient care. [place]
[2017-11-20] MEDS: CEFAZOLIN/Water 2 GM/20 ML SYRINGE SLOW IVP SCH (05:48)
[2017-11-20] MEDS: Sodium Chloride 0.9% 1,000 ML IV SCH (05:50)
[2017-11-20] MEDS: Allopurinol 100 MG TAB PO SCH (08:59)
[2017-11-20] MEDS: Finasteride 5 MG TAB PO SCH (08:59)
[2017-11-20] MEDS: Amlodipine 10 MG TAB PO SCH (08:59)
[2017-11-20] MEDS: Aspirin 81 mg Enteric Coated Tablet PO SCH (08:59)
[2017-11-20] MEDS: Folic Acid 1 MG TAB PO SCH (08:59)
[2017-11-20] MEDS: Atorvastatin Calcium 10 MG TAB PO SCH (08:59)
[2017-11-20] MEDS: BRIMONIDINE TARTRATE 0.2% EA EYE SCH ×3 (09:00→21:45)
[2017-11-20] MEDS ORDERED: Aspirin 325 MG TAB PO SCH (09:00)
[2017-11-20] MEDS: Lisinopril 20 MG TAB PO SCH (09:00)
[2017-11-20] MEDS: Vit A,C & E/Lutein/Minerals Tablet PO SCH (09:00)
--- NOTE | 2017-11-20 11:18 | PRG ---
DATE OF SERVICE: 11/20/2017 SUBJECTIVE: Philippe Ortiz this morning is awake, alert, responsive, no distress. Verbalizing, still unable to move his left side very well. PHYSICAL EXAMINATION: VITAL SIGNS: Blood pressure 141/90, pulse 113, sats . CHEST: No wheezing. CARDIAC: Normal S1, S2, no gallops. ABDOMEN: Soft, no masses. IMPRESSION: Status post left carotid surgery with right-sided CVA, hypertension. PLAN: Continue aggressive PT and supportive care. Blood pressure controlled, on aspirin. We will follow while in the ICU.
[2017-11-20] MEDS: Tamsulosin HCl 0.4 MG CAP PO SCH (21:45)
[2017-11-21] MEDS: Sodium Chloride 0.9% 1,000 ML IV SCH ×4 (01:53→23:58)
[2017-11-21] MEDS: Amlodipine 10 MG TAB PO SCH (08:47)
[2017-11-21] MEDS: Allopurinol 100 MG TAB PO SCH (08:47)
[2017-11-21] MEDS: Finasteride 5 MG TAB PO SCH (08:48)
[2017-11-21] MEDS: Atorvastatin Calcium 10 MG TAB PO SCH (08:48)
[2017-11-21] MEDS: Aspirin 81 mg Enteric Coated Tablet PO SCH (08:48)
[2017-11-21] MEDS: Folic Acid 1 MG TAB PO SCH (08:48)
[2017-11-21] MEDS: Lisinopril 20 MG TAB PO SCH (08:49)
[2017-11-21] MEDS: Vit A,C & E/Lutein/Minerals Tablet PO SCH (08:49)
[2017-11-21] MEDS ORDERED: Potassium Chloride 30 MEQ in Sodium Chloride 0.9% 250 ML 250 ML IVPB SCH (09:45)
[2017-11-21] MEDS: BRIMONIDINE TARTRATE 0.2% EA EYE SCH ×3 (10:03→20:29)
--- NOTE | 2017-11-21 12:47 | PRG ---
DATE OF SERVICE: 11/21/2017 OBJECTIVE: An 87-year-old gentleman whose blood pressure is 141/86, pulse 112, sats are 98% on room air, respiration rate 18. GENERAL: He is awake, responsive. slurred speech. CHEST: No wheezing. CARDIAC: Normal S1, S2. No gallops. ABDOMEN: Soft, no masses. LABORATORY DATA: Lab is being ordered for tomorrow. IMPRESSION: Status post left carotid surgery, cerebrovascular accident, hypertension. PLAN: Continue supportive care and PT.
[2017-11-21] MEDS: Tamsulosin HCl 0.4 MG CAP PO SCH (20:31)
[2017-11-21] MEDS: Diltiazem HCl 125 MG, Admixture Fee 1 EACH in Sodium Chloride 0.9% 100 ML IVPB SCH (20:39)
[2017-11-22 04:18] LABS: #Eosinphils 0.1 thou/uL (0.0-0.7); #Lymphocytes 1.4 thou/uL (1.20-3.40); #Monocytes 1.5 thou/uL (0.11-0.59); #Neutrophils 11.2 thou/uL (1.40-6.50); %Eosinophils 0.6 % (0.0-10.0); %Lymphocytes 9.6 % (21.0-51.0); %Monocytes 10.9 % (0.0-10.0); %Neutrophils 78.9 % (42.0-75.0); Hemoglobin 11.5 g/dL (14.0-18.0); Mean Corpuscular HGB CONC 33.3 g/dL (32.0-36.0); Mean Corpuscular Volume 89.9 fL (78.0-98.0); Platelet Count 181 thou/uL (130-400); RBC Distribution Width 13.6 % (11.5-14.5); Red Blood Cell (RBC) Count 3.84 mill/uL (4.70-6.10); White Blood Cell (WBC) Count 14.2 thou/uL (4.8-10.8)
[2017-11-22 04:44] LABS: Anion Gap 12 mmol/L (10-20); BUN (Urea Nitrogen) 31 mg/dL (8.4-25.7); Calc. Creatinine Clearance 70 mL/min (70-130); Calcium 9.5 mg/dL (7.8-10.44); Carbon Dioxide 20 mmol/L (23-31); Chloride 115 mmol/L (98-107); Estimated GFR-MDRD 82; Glucose 144 mg/dL (83-110); Potassium 3.3 mmol/L (3.5-5.1); Sodium 144 mmol/L (136-145)
[2017-11-22] MEDS ORDERED: Furosemide 40 MG/4 ML VIAL SLOW IVP SCH (06:30)
[2017-11-22] MEDS ORDERED: Potassium Chloride 30 MEQ in Sodium Chloride 0.9% 250 ML 250 ML IVPB SCH (07:00)
[2017-11-22] MEDS: Finasteride 5 MG TAB PO SCH (08:37)
[2017-11-22] MEDS: Atorvastatin Calcium 10 MG TAB PO SCH (08:37)
[2017-11-22] MEDS: Vit A,C & E/Lutein/Minerals Tablet PO SCH (08:37)
[2017-11-22] MEDS: Lisinopril 20 MG TAB PO SCH (08:37)
[2017-11-22] MEDS: Allopurinol 100 MG TAB PO SCH (08:38)
[2017-11-22] MEDS: Aspirin 81 mg Enteric Coated Tablet PO SCH (08:38)
[2017-11-22] MEDS: Folic Acid 1 MG TAB PO SCH (08:38)
[2017-11-22] MEDS: Amlodipine 10 MG TAB PO SCH (08:38)
[2017-11-22] MEDS: BRIMONIDINE TARTRATE 0.2% EA EYE SCH ×3 (08:39→20:55)
--- NOTE | 2017-11-22 10:44 | PRG ---
DATE OF SERVICE: 11/22/2017 SUBJECTIVE: This morning, he is awake, responsive, is more communicative this morning. He is able t o talk better. He moves his right upper and right lower extremity. He has gone into atrial fibrilla tion. OBJECTIVE: VITAL SIGNS: His pulse is 120, sats are 90%, blood pressure 134/89. CHEST: Decreased breath sounds, no wheezing. CARDIAC: Normal S1 and S2. No gallops. ABDOMEN: No masses. LABORATORY DATA: Electrolytes are normal. Potassium 3.3. White count 14,000. IMPRESSION: 1. Left-sided cerebrovascular accident, status post left carotid surgery. 2. Atrial fibrillation. PLAN: Continue supportive care and PT. We will follow.
[2017-11-22] MEDS: Diltiazem HCl 125 MG, Admixture Fee 1 EACH in Sodium Chloride 0.9% 100 ML IVPB SCH (11:53)
[2017-11-22] MEDS: Sodium Chloride 0.9% 1,000 ML IV SCH ×3 (11:54→20:55)
[2017-11-22] MEDS: Fentanyl 100 MCG/2 ML VIAL SLOW IVP PRN (12:34)
[2017-11-22] MEDS ORDERED: Metoprolol Tartrate 25 MG TAB PO SCH (14:45)
[2017-11-22] MEDS: Metoprolol Tartrate 25 MG TAB PO SCH ×2 (15:34→20:55)
--- NOTE | 2017-11-22 16:51 | EKG ---
Test Reason : STAT Blood Pressure : / mmHG Vent. Rate : 114 BPM Atrial Rate : 122 BPM P-R Int : 168 ms QRS Dur : 092 ms QT Int : 304 ms P-R-T Axes : 061 009 150 degrees QTc Int : 419 ms Normal sinus rhythm with frequent Premature atrial complexes Possible Septal infarct , age undetermined T wave abnormality, consider lateral ischemia Abnormal ECG When compared with ECG of 13-NOV-2017 10:15, Septal infarct is now Present Non-specific change in ST segment in Anterior leads T wave inversion now evident in Lateral leads Confirmed by DOLORES SCHAEFFER, DR. Reynaga ([id number]) on 11/22/2017 4:51:46 PM Referred By: CELESTE Confirmed By:DR. Juhi BERNAL MD
[2017-11-22] MEDS ORDERED: Senokot 8.6 MG TAB PO PRN (18:46)
[2017-11-22] MEDS: Tamsulosin HCl 0.4 MG CAP PO SCH (20:55)
--- NOTE | 2017-11-22 20:55 | CON ---
DATE OF CONSULTATION: 11/22/2017 HISTORY OF PRESENT ILLNESS: Philippe Ortiz is an 87-year-old white male, who has never had any previous cardiac problems. He was hospitalized on the 11/13/2017 with episodes of near falling at home. He would be walking for 1 or 2 seconds with somewhat stumbles to the side. Also, another time was sitting on a couch and had a similar type episode. He never had true syncope. He was admitted and monitored and apparently had frequent PVCs while here. Echocardiogram during that admission revealed ejection fraction of 55% to 60% with somewhat thickened aortic valve leaflets, mild aortic regurgitation, and mild tricuspid regurgitation. CTA of the carotids revealed severe stenosis involving the proximal left internal carotid artery. He was discharged and then returned on the 11/19/2017 for left carotid endarterectomy. Postoperatively, he was found to have right-sided weakness and aphasia. The history is provided by his . Apparently has never had any chest discomfort or shortness of breath previously. PAST MEDICAL HISTORY: No history of diabetes. He does have hypertension and hypercholesterolemia, macular degeneration, GERD, gout, and benign prostatic hypertrophy. MEDICATIONS: Allopurinol 100 daily, amlodipine 10 mg daily, aspirin 81 daily, atorvastatin 10 daily, finasteride 5 mg daily, folic acid 1 mg daily, lisinopril 40 mg daily, Flomax 0.4 mg at bedtime, Senokot p.r.n.. ALLERGIES: None. SOCIAL HISTORY: He stopped smoking 10 years ago. He occasionally drinks. FAMILY HISTORY: Negative for coronary artery disease. REVIEW OF SYSTEMS: Unobtainable with the patient's aphasia. PHYSICAL EXAMINATION: VITAL SIGNS: Blood pressure 122/84, pulse of 109. HEENT: PERRL. NECK: Supple. LUNGS: Chest is clear. CARDIAC: S1 and S2 normal, without any S3, S4, or murmurs. ABDOMEN: Normal bowel sounds. EXTREMITIES: Revealed no edema. NEUROLOGIC: Patient is mildly aphasic with right-sided weakness. SKIN: Warm and dry. LABORATORY DATA: EKG reveals sinus rhythm with premature atrial beats, possible old septal infarction. On monitor, he has fairly frequent PVCs and also an episode of probable atrial tachycardia with rate of 180-190 per minute for 6 seconds. Hemoglobin 11.5, hematocrit 34.6, white count 14,200. Sodium 144, potassium 3.3, chloride 105, carbon dioxide 20, BUN 31, creatinine 0.88. Cardiac enzymes during last admission were normal. IMPRESSION: 1. Frequent PVCs, which apparently also had during last admission. 2. Supraventricular tachycardia, probable atrial tachycardia for 6 seconds. 3. Status post left carotid endarterectomy with left hemispheric cerebrovascular accident. 4. Hypertension. 5. Hypercholesterolemia. 6. Ex-former smoker. PLAN: With PVCs and atrial tachycardia, I will have him start on metoprolol 25 mg b.i.d. and we will reduce the dose of the amlodipine. Metoprolol may need to be gradually increased. He has had previous echocardiogram with normal left ventricular function. Fasting lipid profile will be obtained. [facility]
[2017-11-23] MEDS: Fentanyl 100 MCG/2 ML VIAL SLOW IVP PRN (00:56)
[2017-11-23 05:13] LABS: #Eosinphils 0.1 thou/uL (0.0-0.7); #Lymphocytes 1.5 thou/uL (1.20-3.40); #Monocytes 1.6 thou/uL (0.11-0.59); #Neutrophils 12.7 thou/uL (1.40-6.50); %Basophils 0.1 % (0.0-1.0); %Eosinophils 0.3 % (0.0-10.0); %Lymphocytes 9.2 % (21.0-51.0); %Monocytes 9.8 % (0.0-10.0); %Neutrophils 80.5 % (42.0-75.0); Hemoglobin 11.8 g/dL (14.0-18.0); Mean Corpuscular HGB CONC 32.7 g/dL (32.0-36.0); Mean Corpuscular Hemoglobin 29.6 pg (27.0-31.0); Mean Corpuscular Volume 90.4 fL (78.0-98.0); Mean Platelet Volume 8.4 fL (7.4-10.4); Platelet Count 180 thou/uL (130-400); RBC Distribution Width 13.7 % (11.5-14.5); White Blood Cell (WBC) Count 15.7 thou/uL (4.8-10.8)
[2017-11-23 05:28] LABS: Anion Gap 13 mmol/L (10-20); BUN (Urea Nitrogen) 40 mg/dL (8.4-25.7); Calc. Creatinine Clearance 63 mL/min (70-130); Calcium 9.6 mg/dL (7.8-10.44); Carbon Dioxide 16 mmol/L (23-31); Cardiac Risk 2.9 (Less than 4.5); Chloride 119 mmol/L (98-107); Cholesterol 117 mg/dl (< 200 Desired); Estimated GFR-MDRD 73; Glucose 142 mg/dL (83-110); HDL Cholesterol 41 mg/dL (>60 Neg Risk); LDL Cholesterol, Calculated 56 mg/dL; Potassium 3.4 mmol/L (3.5-5.1); Sodium 145 mmol/L (136-145); Triglycerides 100 mg/dL (Less than 150)
[2017-11-23] MEDS ORDERED: Potassium Chloride 30 MEQ in Sodium Chloride 0.9% 250 ML 250 ML IVPB SCH (07:30)
[2017-11-23] MEDS: Sodium Chloride 0.9% 1,000 ML IV SCH (08:07)
[2017-11-23] MEDS: Lisinopril 20 MG TAB PO SCH (08:35)
[2017-11-23] MEDS: Vit A,C & E/Lutein/Minerals Tablet PO SCH (08:37)
[2017-11-23] MEDS: Finasteride 5 MG TAB PO SCH (08:37)
[2017-11-23] MEDS: Allopurinol 100 MG TAB PO SCH (08:37)
[2017-11-23] MEDS: Metoprolol Tartrate 25 MG TAB PO SCH (08:38)
[2017-11-23] MEDS: Atorvastatin Calcium 10 MG TAB PO SCH (08:38)
[2017-11-23] MEDS: Folic Acid 1 MG TAB PO SCH (08:38)
[2017-11-23] MEDS: Aspirin 81 mg Enteric Coated Tablet PO SCH (08:38)
--- NOTE | 2017-11-23 08:45 | PRG ---
DATE OF SERVICE: 11/23/2017 This morning he is awake, alert, responsive, sitting on the side of the bed. PHYSICAL EXAMINATION: VITAL SIGNS: Sats 93 on 2 liters, pulse 130, respirations 24, blood pressure 138/92. CHEST: No wheezing or crackles. CARDIAC: Normal S1, S2. ABDOMEN: Soft, no masses. LABORATORY: His electrolytes are normal. His white count is slightly elevated at 13,000. X-ray of his chest taken today shows bibasilar nonspecific atelectatic changes, some mild cardiomegal y. IMPRESSION: 1. Status post cerebrovascular accident. 2. Status post carotid endarterectomy. 3 Supraventricular tachycardia. PLAN: Continue supportive care and PT. We will follow while in the ICU.
[2017-11-23] MEDS ORDERED: Clopidogrel Bisulfate 75 MG TAB ONE (08:46)
[2017-11-23] MEDS: BRIMONIDINE TARTRATE 0.2% EA EYE SCH ×3 (08:47→20:48)
[2017-11-23] MEDS ORDERED: Amlodipine 5 MG TAB PO SCH (09:00)
--- NOTE | 2017-11-23 09:13 | RAD ---
AP CHEST: Indication: Shortness of breath. FINDINGS: The exam is compared to prior dated 11-13-17. There is worsening cardiomegaly with pulmonary vascular congestion, perihilar and interstitial edema. There are new small bilateral pleural effusions. There is bibasilar atelectasis. No pneumothorax is evident. Chronic osseous changes are stable. IMPRESSION: Findings of CHF. POS: [facility]
[2017-11-23] MEDS: Tamsulosin HCl 0.4 MG CAP PO SCH (16:56)
[2017-11-23] MEDS: Fluconazole 100 MG TAB PO SCH (16:56)
[2017-11-23] MEDS: Metoprolol Tartrate 50 MG TAB PO SCH (20:49)
[2017-11-24] MEDS: Fentanyl 100 MCG/2 ML VIAL SLOW IVP PRN ×2 (01:09→05:26)
[2017-11-24 04:58] LABS: #Lymphocytes 1.3 thou/uL (1.20-3.40); #Monocytes 1.5 thou/uL (0.11-0.59); #Neutrophils 9.9 thou/uL (1.40-6.50); %Basophils 0.1 % (0.0-1.0); %Eosinophils 0.3 % (0.0-10.0); %Lymphocytes 10.5 % (21.0-51.0); %Monocytes 11.4 % (0.0-10.0); %Neutrophils 77.7 % (42.0-75.0); Hemoglobin 12.1 g/dL (14.0-18.0); Mean Corpuscular HGB CONC 32.8 g/dL (32.0-36.0); Mean Corpuscular Volume 91.4 fL (78.0-98.0); Mean Platelet Volume 8.5 fL (7.4-10.4); Platelet Count 171 thou/uL (130-400); RBC Distribution Width 13.8 % (11.5-14.5); Red Blood Cell (RBC) Count 4.02 mill/uL (4.70-6.10); White Blood Cell (WBC) Count 12.7 thou/uL (4.8-10.8)
[2017-11-24] MEDS: Aspirin 81 mg Enteric Coated Tablet PO SCH (08:53)
[2017-11-24] MEDS: Atorvastatin Calcium 10 MG TAB PO SCH (08:53)
[2017-11-24] MEDS: Lisinopril 20 MG TAB PO SCH (08:53)
[2017-11-24] MEDS: Folic Acid 1 MG TAB PO SCH (08:53)
[2017-11-24] MEDS: Metoprolol Tartrate 50 MG TAB PO SCH ×2 (08:53→19:42)
[2017-11-24] MEDS: Finasteride 5 MG TAB PO SCH (08:53)
[2017-11-24] MEDS: Vit A,C & E/Lutein/Minerals Tablet PO SCH (08:53)
[2017-11-24] MEDS: Allopurinol 100 MG TAB PO SCH (08:53)
[2017-11-24] MEDS: BRIMONIDINE TARTRATE 0.2% EA EYE SCH ×3 (08:54→21:20)
--- NOTE | 2017-11-24 13:43 | PRG ---
DATE OF SERVICE: 11/24/2017 SUBJECTIVE: Philippe Ortiz remains in the ICU. He is somewhat encephalopathic. OBJECTIVE: VITAL SIGNS: Blood pressure 134/86, pulse 114 and irregular, sats are 98% on 4 liters, respiratory rate 18. CHEST: Decreased breath sounds, no wheezing. CARDIAC: Normal S1 and S2. No gallops. ABDOMEN: Soft. NEUROLOGIC: Neurologically, he is confused, but moves all 4 extremities. IMPRESSION: Status post cerebrovascular accident, status post left carotid endarterectomy. metabolic encephalopathy, supraventricular tachycardia. PLAN: I have started him on low-dose risperidone 0.25 at nighttime. Otherwise , continue supportive care, PT. We will follow. [facility]
[2017-11-24] MEDS: Fluconazole 100 MG TAB PO SCH (17:50)
[2017-11-24] MEDS: Lorazepam 2 MG/ML VIAL SLOW IVP PRN (17:50)
[2017-11-24] MEDS ORDERED: Amiodarone HCl 150 MG in Dextrose 5% in Water 100 ML IVPB SCH (20:30)
[2017-11-24] MEDS ORDERED: Digoxin 0.5 MG/2 ML AMP SLOW IVP SCH (20:30)
[2017-11-24] MEDS: risperiDONE 0.25 MG TAB PO SCH (21:20)
[2017-11-24] MEDS: Tamsulosin HCl 0.4 MG CAP PO SCH (21:20)
[2017-11-24] MEDS: Amiodarone HCl 450 MG in Dextrose 5% in Water 250 ML IVPB SCH (21:32)
[2017-11-25] MEDS: Lorazepam 2 MG/ML VIAL SLOW IVP PRN (02:05)
[2017-11-25] MEDS: Amiodarone HCl 450 MG in Dextrose 5% in Water 250 ML IVPB SCH ×2 (07:16→22:44)
[2017-11-25] MEDS: Lisinopril 20 MG TAB PO SCH (09:34)
[2017-11-25] MEDS: Vit A,C & E/Lutein/Minerals Tablet PO SCH (09:34)
[2017-11-25] MEDS: Allopurinol 100 MG TAB PO SCH (09:34)
[2017-11-25] MEDS: BRIMONIDINE TARTRATE 0.2% EA EYE SCH ×3 (09:35→20:54)
[2017-11-25] MEDS: Finasteride 5 MG TAB PO SCH (09:35)
[2017-11-25] MEDS: Aspirin 81 mg Enteric Coated Tablet PO SCH (09:35)
[2017-11-25] MEDS: Folic Acid 1 MG TAB PO SCH (09:35)
[2017-11-25] MEDS: Atorvastatin Calcium 10 MG TAB PO SCH (09:35)
[2017-11-25] MEDS: Metoprolol Tartrate 50 MG TAB PO SCH ×2 (09:35→20:54)
[2017-11-25 10:20] LABS: Anion Gap 13 mmol/L (10-20); BUN (Urea Nitrogen) 48 mg/dL (8.4-25.7); Calc. Creatinine Clearance 62 mL/min (70-130); Calcium 9.6 mg/dL (7.8-10.44); Carbon Dioxide 20 mmol/L (23-31); Chloride 121 mmol/L (98-107); Estimated GFR-MDRD 72; Glucose 141 mg/dL (83-110); Potassium 3.3 mmol/L (3.5-5.1); Sodium 151 mmol/L (136-145)
--- NOTE | 2017-11-25 12:37 | PRG ---
DATE OF SERVICE: 11/25/2017 Philippe Ortiz was transferred from the ICU to the Stroke Unit. Upon arrival, he is sleeping. He was given risperidone 0.25 last night. PHYSICAL EXAMINATION: VITAL SIGNS: Sats are 92%, still on Cardizem drip with a heart rate of 80-90, blood pressure 140/70, respiration rate 18. CHEST: No wheezing or rhonchi. CARDIAC: Normal S1, S2, no gallops. ABDOMEN: Soft. LABORATORY: His BUN is elevated at 48, creatinine is normal, but his sodium 151, potassium 3.3, sugg estive of an element of azotemia prerenal. IMPRESSION: 1. Cerebrovascular accident status post left carotid surgery. 2. Encephalopathy. PLAN: Probably needs a PEG tube for nutrition. He needs some IV fluids. Pulmonary Critical Care will follow at a distance. Please call with any pulmonary issues.
[2017-11-25] MEDS: Fluconazole 100 MG TAB PO SCH (18:16)
[2017-11-25] MEDS: Dextrose 5 % And 0.9 % NaCl 1,000 ML IV SCH (18:16)
[2017-11-25] MEDS: Tamsulosin HCl 0.4 MG CAP PO SCH (20:54)
[2017-11-25] MEDS: risperiDONE 0.25 MG TAB PO SCH (20:54)
[2017-11-26] MEDS: Dextrose 5 % And 0.9 % NaCl 1,000 ML IV SCH ×3 (04:31→16:38)
[2017-11-26] MEDS: Lisinopril 20 MG TAB PO SCH (08:41)
[2017-11-26] MEDS: Vit A,C & E/Lutein/Minerals Tablet PO SCH (08:41)
[2017-11-26] MEDS: Aspirin 81 mg Enteric Coated Tablet PO SCH (08:41)
[2017-11-26] MEDS: Metoprolol Tartrate 50 MG TAB PO SCH ×2 (08:41→22:37)
[2017-11-26] MEDS: Finasteride 5 MG TAB PO SCH (08:41)
[2017-11-26] MEDS: Folic Acid 1 MG TAB PO SCH (08:41)
[2017-11-26] MEDS: Atorvastatin Calcium 10 MG TAB PO SCH (08:42)
[2017-11-26] MEDS: Allopurinol 100 MG TAB PO SCH (09:40)
[2017-11-26] MEDS: BRIMONIDINE TARTRATE 0.2% EA EYE SCH ×3 (09:40→22:36)
[2017-11-26] MEDS ORDERED: CEFAZOLIN/Water 2 GM/20 ML SYRINGE ONE (12:00)
[2017-11-26] MEDS ORDERED: Fentanyl 100 MCG/2 ML VIAL ONE (12:41)
--- NOTE | 2017-11-26 12:44 | CON ---
DATE OF CONSULTATION: 11/26/2017 REASON FOR CONSULTATION: Requested PEG tube placement. HISTORY OF PRESENT ILLNESS: Mr. Ortiz underwent a left carotid endarterectomy secondary to a criti hilario left carotid stenosis. The patient had been admitted on 11/13/2017 with recurrent syncopal episo kyara. Neurologist thought he was possibly having small seizures. He went home with a diagnosis of rig ht severe carotid stenosis and he was placed on Dilantin for possible CVA. It is felt that he was cline ving partial seizures. He returned for outpatient surgery on the . After surgery he had a right CVA. There has been concerned about his swallowing status. Ultimately, after discussion between th e patient's speech pathologist, the patient's neurosurgeon and saddle mechanic felt most likely the pat ient was having episodes of aspiration. This was after optimizing his respiratory status and diuresi ng as they thought he possibly was a little bit wet with O2 sats in the areas of 92% and hoarseness a nd cough after trying to eat. I have been asked to see him with regard to placing a PEG tube. Presently, the patient denies any abdominal pain. Denies any throat pain. He is on some Diflucan fo r oral thrush. PAST MEDICAL HISTORY: Mild hypertension, BPH, arthritis, gout, macular degeneration. PAST SURGICAL HISTORY: Include cataract surgery, orthopedic surgery and then he has had this carotid endarterectomy on the right. MEDICATIONS: Presently Tylenol, DuoNeb, zolpidem, amiodarone, Ecotrin, Lipitor, fentanyl p.r.n., Pro scar, Diflucan, Apresoline, lisinopril, Ativan, metoprolol, Phenergan p.r.n., eyedrops, Senokot p.r.n . Geodon p.r.n., Flomax. ALLERGIES: None known. PHYSICAL EXAMINATION: VITAL SIGNS: Temperature is 97, pulse 84, O2 sat 94-92% via nasal cannula. GENERAL: He is resting comfortably in bed. He is a little bit dysarthric, but is very alert and chelsey ented. He has had a little hoarse voice. LUNGS: Clear. HEART: Regular rate and rhythm without clicks or murmurs. ABDOMEN: Soft, nontender. There are no abdominal scars. LABORATORY AND X-RAY FINDINGS: White count is 12.7, hemoglobin 12.1, platelet count 177. INR is 0.9 . Sodium 151, potassium 3.3, BUN and creatinine are 48 and 0.99. ASSESSMENT: 1. This is an 87-year-old gentleman with a cerebrovascular accident. It is felt that he is having s ome aspiration with his dysarthria and continued difficulty with saturations. 2. He is little bit dry, he is a little bit prerenal, which he was apparently diuresed a little bit as they felt he was a little fluid overloaded at one time. 3. Metabolic encephalopathy seems to have improved. 4. He has supraventricular tachycardia that started with atrial fibrillation which he has been start ed on amiodarone for this, rate is controlled. 5. Mild hypernatremia, sodium 151, related to his diuresis mild prerenal azotemia. His potassium cline s run low at 3.4-3.3. PLAN: I think he is an acceptable risk for anesthesia at this point in time. I talked to his cardio vascular surgeon. His cardiovascular surgeon has talked to my partner about getting this scheduled f or today and they were okay with proceeding. His vital signs are good. His heart rate is controlled . Saturations are fine. I discussed risks, benefits, possible complications with the patient's daug hter, and the patient himself including risks of perforation, bleeding, reaction to medication, aspiration. We will proceed with EGD and PEG tube placement today. Ancef 2 grams IV preoperatively. I have discussed with them what speech pathology will do to help his swallowing and a potential for removal of the PEG in 6 weeks.
[2017-11-26] MEDS ORDERED: PACU-Morphine 4MG/ML VIAL SLOW IVP PRN (13:37)
[2017-11-26] MEDS ORDERED: Promethazine HCl 25 MG/ML VIAL SLOW IVP PRN (13:37)
[2017-11-26] MEDS ORDERED: Ondansetron HCl/PF 4 MG/2 ML Vial IVP PRN (13:37)
[2017-11-26] MEDS ORDERED: Promethazine HCl 25 MG/ML VIAL IM PRN (13:37)
--- NOTE | 2017-11-26 13:50 | OP ---
DATE OF PROCEDURE: 11/26/2017 SURGEON: Moe Nunez M.D. PREOPERATIVE DIAGNOSES: Cerebrovascular accident with oropharyngeal dysphagia. POSTOPERATIVE DIAGNOSES: 1. PEG tube placed by Ponsky pull technique. 2. Inflammatory nodule gastric antrum, not biopsied or removed. 3. Mild gastritis not biopsied. ANESTHESIA: TIVA. 2 grams Ancef. RECOMMENDATIONS: Can use the PEG for tube feeding in 4 hours. Can start medicines through PEG now. PROCEDURE IN DETAIL: The patient was informed of the risks, benefits, possible complications and opt ions including perforation, reactions to medication and aspiration, informed consent was obtained. T he patient was brought to endoscopy suite where he was sedated in a gradual fashion. Once he was com fortable a bite block was placed in the incisural orifice, endoscope was advanced in the esophagus, s tomach, second and third portion of duodenum and slowly removed. There was good visualization of muc mary. The esophagus was normal. The stomach was notable for mild chronic gastritis with erythema and slight nodularity. There were no masses or tumors seen. There was a 3 mm inflammatory nodule in th e antrum of stomach. This was not biopsied as we are here to place the PEG and his respiratory statu s is tenuous. The duodenum was normal to the third portion. An adequate place for PEG tube placemen t was identified by transillumination and finger indentation and a PEG tube was placed by Ponsky pull technique. Second look confirmed good position.
[2017-11-26] MEDS ORDERED: PROPOFOL 200 MG/20 ML VIAL ONE (15:09)
[2017-11-26] MEDS: Lorazepam 2 MG/ML VIAL SLOW IVP PRN ×2 (16:31→22:37)
[2017-11-26] MEDS: Fluconazole 100 MG TAB PO SCH (18:38)
[2017-11-26] MEDS: risperiDONE 0.25 MG TAB PO SCH (22:36)
[2017-11-26] MEDS: Tamsulosin HCl 0.4 MG CAP PO SCH (22:37)
[2017-11-27] MEDS: Ziprasidone 20 MG VIAL IM PRN ×4 (00:15→22:22)
[2017-11-27] MEDS: Dextrose 5 % And 0.9 % NaCl 1,000 ML IV SCH ×3 (02:38→23:58)
[2017-11-27] MEDS ORDERED: Budesonide 0.25 MG/2 ML NEB ONE (04:16)
[2017-11-27] MEDS: Amiodarone HCl 450 MG in Dextrose 5% in Water 250 ML IVPB SCH (05:59)
[2017-11-27] MEDS: BRIMONIDINE TARTRATE 0.2% EA EYE SCH ×3 (10:13→22:22)
[2017-11-27] MEDS: Allopurinol 100 MG TAB PO SCH (10:14)
[2017-11-27] MEDS: Amiodarone 200 MG TAB PO SCH ×2 (10:14→22:21)
[2017-11-27] MEDS: Atorvastatin Calcium 10 MG TAB PO SCH (10:14)
[2017-11-27] MEDS: Aspirin 81 mg Enteric Coated Tablet PO SCH (10:14)
[2017-11-27] MEDS: FLUoxetine HCl 10 MG CAP PO SCH (10:15)
[2017-11-27] MEDS: Folic Acid 1 MG TAB PO SCH (10:15)
[2017-11-27] MEDS: Vit A,C & E/Lutein/Minerals Tablet PO SCH (10:15)
[2017-11-27] MEDS: Metoprolol Tartrate 50 MG TAB PO SCH ×2 (10:15→22:22)
[2017-11-27] MEDS: Lisinopril 20 MG TAB PO SCH (10:15)
[2017-11-27] MEDS: Finasteride 5 MG TAB PO SCH (10:15)
[2017-11-27] MEDS: Bisacodyl 10 MG SUPP PR PRN (12:51)
[2017-11-27] MEDS: Metoclopramide HCl 10 MG/2 ML VIAL IVP SCH ×2 (14:09→22:22)
--- NOTE | 2017-11-27 15:24 | PDOC.CTH ---
Cardiology Progress Note - Subjective No new issues. - Objective Vital Signs Temp Pulse Resp BP BP Pulse Ox 11/27/17 12:21 98.7 F 66 20 130/80 86 L 11/27/17 10:15 157/95 H 11/27/17 08:00 98.6 F 77 20 157/95 H 94 L 11/27/17 04:00 98.4 F 86 20 146/90 H 93 L Admit Weight 177 lb 7.554 oz Weight 177 lb 7.554 oz 11/26/17 11/27/17 11/28/17 06:59 06:59 06:59 Intake Total 0 935 Balance 0 935 - Physical Examination General/Neuro: NAD Neck: no JVD present Lungs: unlabored respirations Heart: other: (irreg) Abdomen: NT/ND Extremities: + edema B (trace) - Telemetry Telemetry Rhythm: NSR, PVC's - Labs Result Diagrams: 11/24/17 04:41 11/25/17 09:50 - Assessment/Plan 1. Acute CVA 2. Afib RVR, currently in sinus 3. S/P CEA. 4. Hypokalemia PLAN: - Continue amiodarone drip. - Replace K
[2017-11-27] MEDS: Fluconazole 100 MG TAB PO SCH (17:05)
[2017-11-27] MEDS: Tamsulosin HCl 0.4 MG CAP PO SCH (22:21)
[2017-11-27] MEDS: risperiDONE 0.25 MG TAB PO SCH (22:21)
[2017-11-28] MEDS: Ziprasidone 20 MG VIAL IM PRN ×3 (02:30→08:30)
[2017-11-28 05:14] LABS: ALT (SGPT) 22 U/L (8-55); AST (SGOT) 39 U/L (5-34); Albumin 2.8 g/dL (3.4-4.8); Alkaline Phosphatase 87 U/L (40-150); Anion Gap 13 mmol/L (10-20); BUN (Urea Nitrogen) 26 mg/dL (8.4-25.7); Bilirubin, Total 1.8 mg/dL (0.2-1.2); Calc. Creatinine Clearance 62 mL/min (70-130); Calcium 8.6 mg/dL (7.8-10.44); Carbon Dioxide 21 mmol/L (23-31); Estimated GFR-MDRD 72; Globulin 3.1 g/dL (2.4-3.5); Glucose 194 mg/dL (83-110); Magnesium 1.7 mg/dL (1.6-2.6); Phosphorus 2.4 mg/dL (2.3-4.7); Protein, Total 5.9 g/dL (5.8-8.1); Sodium 157 mmol/L (136-145)
[2017-11-28] MEDS: Metoclopramide HCl 10 MG/2 ML VIAL IVP SCH (05:17)
[2017-11-28 05:18] LABS: Chloride 126 mmol/L (98-107); Potassium 2.6 mmol/L (3.5-5.1)
[2017-11-28] MEDS: Lisinopril 20 MG TAB PO SCH (08:32)
[2017-11-28] MEDS: Folic Acid 1 MG TAB PO SCH (08:33)
[2017-11-28] MEDS: Vit A,C & E/Lutein/Minerals Tablet PO SCH (08:33)
[2017-11-28] MEDS: Metoprolol Tartrate 50 MG TAB PO SCH ×2 (08:33→20:18)
[2017-11-28] MEDS: FLUoxetine HCl 10 MG CAP PO SCH (08:33)
[2017-11-28] MEDS: Finasteride 5 MG TAB PO SCH (08:33)
[2017-11-28] MEDS: Aspirin 81 mg Enteric Coated Tablet PO SCH (08:33)
[2017-11-28] MEDS: Atorvastatin Calcium 10 MG TAB PO SCH (08:33)
[2017-11-28] MEDS: Allopurinol 100 MG TAB PO SCH (08:33)
[2017-11-28] MEDS: Amiodarone 200 MG TAB PO SCH ×2 (08:33→20:18)
[2017-11-28] MEDS: BRIMONIDINE TARTRATE 0.2% EA EYE SCH ×3 (08:34→20:23)
[2017-11-28] MEDS: Dextrose 5 % And 0.9 % NaCl 1,000 ML IV SCH ×3 (10:03→20:18)
[2017-11-28 13:03] LABS: Anion Gap 10 mmol/L (10-20); BUN (Urea Nitrogen) 27 mg/dL (8.4-25.7); Calc. Creatinine Clearance 61 mL/min (70-130); Calcium 8.6 mg/dL (7.8-10.44); Carbon Dioxide 24 mmol/L (23-31); Estimated GFR-MDRD 70; Glucose 194 mg/dL (83-110); Potassium 3.1 mmol/L (3.5-5.1); Sodium 157 mmol/L (136-145)
[2017-11-28 13:05] LABS: Chloride 126 mmol/L (98-107)
[2017-11-28] MEDS ORDERED: Bisacodyl 10 MG SUPP PR SCH (13:30)
--- NOTE | 2017-11-28 13:31 | PDOC.CTH ---
Cardiology Progress Note - Subjective He is muich more confused today. No chest pain. - Objective Vital Signs Temp Pulse Resp BP BP Pulse Ox 11/28/17 11:51 97.4 F L 68 20 144/89 H 96 11/28/17 08:32 157/95 H 11/28/17 08:00 98.2 F 84 20 176/93 H 97 11/28/17 04:00 98.4 F 75 20 149/84 H 96 Admit Weight 177 lb 7.554 oz Weight 177 lb 7.554 oz 11/27/17 11/28/17 11/29/17 06:59 06:59 06:59 Intake Total 935 2649 200 Balance 935 2649 200 - Physical Examination Neck: no JVD present Lungs: unlabored respirations Heart: RRR Abdomen: NT/ND Extremities: other: (no edema) - Telemetry Telemetry Rhythm: NSR - Labs Result Diagrams: 11/24/17 04:41 11/28/17 12:13 - Assessment/Plan 1. Acute CVA 2. Afib RVR, currently in sinus 3. S/P CEA. 4. Hypokalemia 5. AMS PLAN: - Amiodarone to PO now through PEG tube. - Replace K - Received a dose of Geodon and had some improvement i nsymptoms. - Will need 24 hr Sitter for now.
[2017-11-28 14:12] LABS: Band 6 % (5-11); Hemoglobin 10.7 g/dL (14.0-18.0); Lymphocytes 4 % (21-51); MDiff Complete? YES; Mean Corpuscular HGB CONC 31.9 g/dL (32.0-36.0); Mean Corpuscular Hemoglobin 29.7 pg (27.0-31.0); Mean Corpuscular Volume 93.1 fL (78.0-98.0); Mean Platelet Volume 9.5 fL (7.4-10.4); Monocytes 1 % (0-10); Neutrophil 89 % (42-75); PLT Morphology Comment Appears Adequate; Platelet Count 122 thou/uL (130-400); RBC Distribution Width 14.2 % (11.5-14.5); Red Blood Cell (RBC) Count 3.61 mill/uL (4.70-6.10); White Blood Cell (WBC) Count 15.4 thou/uL (4.8-10.8)
[2017-11-28 14:38] LABS: Anion Gap 12 mmol/L (10-20); BUN (Urea Nitrogen) 28 mg/dL (8.4-25.7); Calc. Creatinine Clearance 60 mL/min (70-130); Calcium 8.4 mg/dL (7.8-10.44); Carbon Dioxide 22 mmol/L (23-31); Estimated GFR-MDRD 69; Glucose 173 mg/dL (83-110); Potassium 3.4 mmol/L (3.5-5.1); Sodium 157 mmol/L (136-145)
[2017-11-28 14:40] LABS: Chloride 126 mmol/L (98-107)
--- NOTE | 2017-11-28 14:57 | RAD ---
PORTABLE CHEST 1 VIEW: Date: 11/28/17 Time: 1319 hours HISTORY: Tachypnea. FINDINGS/IMPRESSION: Comparison made with exam of 11/23/17. Heart size is enlarged. Aorta is tortuous. There is pulmonary vascular congestion. Small effusions ma y be present. There is consolidation/atelectatic change at the left lung base. No pneumothoraces are identified. POS: [facility]
[2017-11-28] MEDS: Dextrose 5% in Water 1,000 ML IV SCH (16:06)
[2017-11-28] MEDS: Haloperidol Lactate 5 MG/ML VIAL IM PRN (18:04)
[2017-11-28] MEDS: Fluconazole 100 MG TAB PO SCH (18:21)
[2017-11-28] MEDS: Tamsulosin HCl 0.4 MG CAP PO SCH (20:18)
--- NOTE | 2017-11-28 20:49 | PRG ---
DATE OF SERVICE: 11/28/2017 GI FOLLOWUP NOTE First half of my note from yesterday is not on the chart. I have asked the home supervisor nelson elizondo from the 11/27/2017. SUBJECTIVE: Mr. Ortiz apparently has tolerated tube feeds with residuals less than 150 and no clin ical signs of aspiration. The nurses note even though he got a yesterday had no bowel movement . He has been confused and having to receive some Geodon. Nurse notes that he has been on this medi cation intermittently for about 3-4 days now and review of the records that was ordered on the . Last night, apparently tried to pull out most of his IVs and lines and monitors, but did not pull ou t his PEG tube. OBJECTIVE: VITAL SIGNS: Temperature is 97.4, pulse 68, blood pressure 145/89. GENERAL: He is more alert and awake today, but speaking in garbled tone. His notes he is not c oughing or choking. ABDOMEN: Protuberant, but nontender. PEG tube site is warm and dry. There is no erythema or discha rge. LABORATORY STUDIES: Sodium 157 this morning, potassium was 2.6, bicarbonate 126, BUN is 26 and crea tinine is 0.99. He was given potassium and his potassium is up to 3.1. ASSESSMENT: 1. Status post cerebrovascular accident. 2. Oropharyngeal dysphasia with concern for aspiration. PEG tube is in place. 3. The patient was showing signs of regurgitation and aspiration. Therefore, he was placed on low d ose Reglan. 4. He has been confused. The nurses note this has been present before and he has been getting Geodo n before the Reglan was started, but I think we can get him off the Reglan that would be beneficial f or his mental status. 5. Hypernatremia. I have increased his free fluids to 200 with each feeds from 150. His IV fluids have been changed to D5 water. 6. Hypokalemia. He has been replaced from 2.6-3.1, we will talk to the nurse about getting him some more potassium. The labs will be rechecked tomorrow. 7. With regards to his obstipation, we will give him a Dulcolax suppository, he has no bowel movemen t, we will need an enema.
--- NOTE | 2017-11-28 20:55 | PRG ---
Critical care time 30 minutes DATE OF SERVICE: 11/28/2017 SUBJECTIVE: Philipep Ortiz has been more encephalopathic. I was asked to see him by Dr. Maynard. I recommend moving him back to the Critical Care Unit. OBJECTIVE: VITAL SIGNS: Currently, his blood pressure is 130/87, heart rate is 76, respiratory rate is 23. He is still dysarthric. LUNGS: He had mild rhonchi on exam. HEART: Regular rhythm. ABDOMEN: Soft. Extremities: Without asymmetry. IMAGING: Chest radiograph shows mild increase in interstitial markings. LABORATORY DATA: Shows a white count of 15.4, hemoglobin 10.7, platelets 122, 000. Sodium 157, potassium 3.4, chloride 126, BUN 28, creatinine 1.02. IMPRESSION AND PLAN: 1. Hyperosmolar state. 2. Status post cerebrovascular accident with a carotid endarterectomy, ? plaque embolus. 3. Atrial fibrillation, now in sinus rhythm. 4. Encephalopathy. Try to simplify his drugs and avoid drugs that would aggravate his encephalopathy such as possibly Reglan or lorazepam. Take him off the Geodon for now and use a small dose of Haldol. If he develops any respiratory distress, we will place him on BiPAP, although he is handling his secretions well at this time. BiPAP may help him sleep well, so we may do that this evening. [place]
[2017-11-29] MEDS: hydrALAZINE 20 MG/ML VIAL SLOW IVP PRN (04:30)
[2017-11-29] MEDS: Dextrose 5% in Water 1,000 ML IV SCH ×2 (05:12→19:00)
[2017-11-29] MEDS: Dextrose 5 % And 0.9 % NaCl 1,000 ML IV SCH (05:12)
[2017-11-29 05:48] LABS: #Eosinphils 0.1 thou/uL (0.0-0.7); #Lymphocytes 1.6 thou/uL (1.20-3.40); #Monocytes 1.3 thou/uL (0.11-0.59); #Neutrophils 15.8 thou/uL (1.40-6.50); %Basophils 0.1 % (0.0-1.0); %Eosinophils 0.3 % (0.0-10.0); %Lymphocytes 8.4 % (21.0-51.0); %Neutrophils 84.2 % (42.0-75.0); Hemoglobin 11.1 g/dL (14.0-18.0); Mean Corpuscular HGB CONC 30.8 g/dL (32.0-36.0); Mean Corpuscular Hemoglobin 28.6 pg (27.0-31.0); Mean Corpuscular Volume 92.9 fL (78.0-98.0); Mean Platelet Volume 9.9 fL (7.4-10.4); Platelet Count 127 thou/uL (130-400); RBC Distribution Width 14.4 % (11.5-14.5); Red Blood Cell (RBC) Count 3.87 mill/uL (4.70-6.10); White Blood Cell (WBC) Count 18.8 thou/uL (4.8-10.8)
[2017-11-29 06:01] LABS: ALT (SGPT) 28 U/L (8-55); AST (SGOT) 41 U/L (5-34); Albumin 2.9 g/dL (3.4-4.8); Alkaline Phosphatase 96 U/L (40-150); Anion Gap 16 mmol/L (10-20); BUN (Urea Nitrogen) 25 mg/dL (8.4-25.7); Bilirubin, Total 2.2 mg/dL (0.2-1.2); Calc. Creatinine Clearance 59 mL/min (70-130); Calcium 8.9 mg/dL (7.8-10.44); Carbon Dioxide 22 mmol/L (23-31); Chloride 123 mmol/L (98-107); Estimated GFR-MDRD 68; Globulin 3.3 g/dL (2.4-3.5); Glucose 146 mg/dL (83-110); Magnesium 1.6 mg/dL (1.6-2.6); Phosphorus 2.8 mg/dL (2.3-4.7); Potassium 3.8 mmol/L (3.5-5.1); Protein, Total 6.2 g/dL (5.8-8.1); Sodium 157 mmol/L (136-145)
--- NOTE | 2017-11-29 07:09 | PRG ---
DATE OF SERVICE: 11/27/2017 SUBJECTIVE: Mr. Ortiz apparently did not tolerate his tube feeds last night. It was half a can ev fam 6 hours with 200 mL of water. The patient's notes that he had regurgitation that had to be suctioned from his mouth. They slowed his tube feeds. He has had no bowel movement for 2 days. The patient is sleeping presently. He is not arousable. OBJECTIVE: VITAL SIGNS: Temperature is 98.6, pulse 77, blood pressure 158/95, O2 sat 94%, respirations 20. LUNGS: Clear with some coarse rhonchi, seems like he has got some sleep apnea. ABDOMEN: Soft, nontender. PEG site is clean and dry. Bowel sounds are quiescent. LABORATORY STUDIES: None. ASSESSMENT: 1. Cerebrovascular accident with oropharyngeal dysphagia, status post percutaneous endoscopic gastro stomy tube. 2. Electrolyte abnormalities from the 27 likely related to diuresis. 3. Regurgitation. 4. No bowel movement for 2 days. RECOMMENDATIONS: 1. Dulcolax suppositories until he has a bowel movement. 2. Low dose Reglan. 3. Talked with dietitian. We are going to start low flow continuous feeds. 4. Keep head of the bed elevated at all times. 5. The patient's intolerance to tube feeds, we will have to stop for a while. 6. We are going to check electrolytes and replace as necessary.
--- NOTE | 2017-11-29 08:35 | PRG ---
DATE OF SERVICE: 11/29/2017 HISTORY: This morning he remains confused, agitated. He has a PEG in place. We are in the process of starting nutrition. His chest x-ray yesterday shows a right-sided infiltrate. PHYSICAL EXAMINATION: VITAL SIGNS: Pulse 88, blood pressure 135/75, sats 90%, respirations 21. CHEST: Chest revealed bilateral rhonchi. CARDIAC: Sinus tachycardia. ABDOMEN: Soft, no mass. LABORATORY DATA: White count 18,000, H&H 11 and 35, platelet count is normal. Sodium 157, BUN and c reatinine are normal, glucose 146. IMPRESSION: 1. Probably aspiration pneumonia. 2. Leukocytosis. 3. Cerebrovascular accident. 4. Encephalopathy. 5. Supraventricular tachycardia. 6. Status post PEG. PLAN: Continue slow hydration, nutrition, PT and supportive care. I have added antibiotics. One-half hour critical care time.
[2017-11-29] MEDS: Aspirin 81 mg Enteric Coated Tablet PO SCH (08:59)
[2017-11-29] MEDS: Lisinopril 20 MG TAB PO SCH (08:59)
[2017-11-29] MEDS: Amiodarone 200 MG TAB PO SCH ×2 (09:03→21:18)
[2017-11-29] MEDS: Folic Acid 1 MG TAB PO SCH (09:03)
[2017-11-29] MEDS: Allopurinol 100 MG TAB PO SCH (09:03)
[2017-11-29] MEDS: Finasteride 5 MG TAB PO SCH (09:04)
[2017-11-29] MEDS: Cefepime 1 GM in Sodium Chloride 0.9% 100 ML IVPB SCH ×2 (09:04→21:18)
[2017-11-29] MEDS: Metoprolol Tartrate 50 MG TAB PO SCH ×2 (09:04→21:19)
[2017-11-29] MEDS: FLUoxetine HCl 10 MG CAP PO SCH (09:14)
[2017-11-29] MEDS: Atorvastatin Calcium 10 MG TAB PO SCH (09:14)
[2017-11-29] MEDS ORDERED: Furosemide 20 MG/2 ML VIAL SLOW IVP SCH (11:15)
--- NOTE | 2017-11-29 13:13 | OP ---
DATE OF PROCEDURE: 11/29/2017 HISTORY: This is an 87-year-old gentleman. PROCEDURE: Therapeutic diagnostic bronchoscopy. INDICATIONS: Retained secretions. PROCEDURE IN DETAIL: After informed consent from the daughter and from the , a flexible bronchos cope was used after placing an adaptor and a biteblock. On entering the back of the throat. There w as copious amounts of thick yellow pus completely occluding the posterior pharynx. I was unable to v isualize the tracheal opening of the vocal cords. This area was suctioned and lavaged multiple times , thick yellow pus was removed. Thereafter, using a large Yankauer, a piece of thick tenacious mucus 2 x 2 inches was removed. Thereafter, the bite block was replaced again. The patient was given anya quate oxygenation with 92-93% sats, the bronchoscope was repassed again, this time the vocal cords we re visible and were able to go into the trachea. Bee was unremarkable. The distal trachea was no rmal. The right and left lung both were visualized without any obvious endobronchial obstruction, bl ood or pus. Lavaged lungs until clear. The washings were sent for Gram stain and C&S. The patient tolerated the procedure well.
[2017-11-29] MEDS: Brimonidine Tartrate 0.2% Ophth Soln 5 ml Bottle EA EYE SCH ×2 (13:21→21:18)
[2017-11-29] MEDS: Haloperidol Lactate 5 MG/ML VIAL IM PRN (13:43)
[2017-11-29] MEDS: Fluconazole 100 MG TAB PO SCH (18:55)
[2017-11-29] MEDS: Bisacodyl 10 MG SUPP PR PRN (18:55)
[2017-11-29] MEDS: Tamsulosin HCl 0.4 MG CAP PO SCH (21:19)
--- NOTE | 2017-11-29 23:02 | PRG ---
DATE OF SERVICE: 11/29/2017 SUBJECTIVE: Mr. Ortiz is still confused, but he has no abdominal pain or acute complaints currentl y. OBJECTIVE: VITAL SIGNS: Temperature is 98.3, pulse 85, blood pressure 159/94. GENERAL: He is awake and responsive. HEENT: His eyes have no scleral icterus. Oropharynx is clear, without lesions. NECK: No cervical or supraclavicular lymphadenopathy. LUNGS: Clear to auscultation bilaterally. HEART: Regular rate and rhythm without murmur. ABDOMEN: Soft, it is nondistended. His bowel sounds are active. His PEG site looks healthy. EXTREMITIES: No lower extremity edema. IMPRESSION: 1. Dysphagia, status post PEG tube. He is tolerating the feeds at a slow rate currently. We will a dvance these gradually as per the dietitian recommendations. 2. Hypernatremia. He is receiving D5 water through the IV. We will also increase the free water al [place] with the gastrostomy feeds. 3. He has not had a bowel movement for the last 3 days. He has received Dulcolax. There is no stoo l in rectal vault at the time when the nursing staff checked. We will advance his feeds as he tolera tong. He is passing gas. He has no abdominal distention and we will follow this.
[2017-11-30] MEDS: Dextrose 5% in Water 1,000 ML IV SCH (06:11)
--- NOTE | 2017-11-30 08:12 | RAD ---
CHEST ONE VIEW: History: Dyspnea. Follow up. Comparison: 11-28-17 FINDINGS: Cardiac silhouette is magnified and enlarged. Pulmonary vasculature remains engorged, similar in appe arance to the prior study. Infiltrate at the right anterior lung base has improved slightly. Mild pat deep bibasilar atelectasis is otherwise stable. Mediastinum midline with aortic calcification. No evid ence of pneumothorax. IMPRESSION: 1. Slight improved aeration of the right lung base. 2. Pulmonary vascular congestion and other findings are otherwise stable. POS: [facility]
[2017-11-30] MEDS: Amiodarone 200 MG TAB PO SCH ×2 (08:40→21:04)
[2017-11-30] MEDS: Aspirin 81 mg Enteric Coated Tablet PO SCH (08:40)
[2017-11-30] MEDS: Cefepime 1 GM in Sodium Chloride 0.9% 100 ML IVPB SCH ×2 (08:40→21:44)
[2017-11-30] MEDS: Lisinopril 20 MG TAB PO SCH (08:40)
[2017-11-30] MEDS: FLUoxetine HCl 10 MG CAP PO SCH (08:40)
[2017-11-30] MEDS: Folic Acid 1 MG TAB PO SCH (08:40)
[2017-11-30] MEDS: Atorvastatin Calcium 10 MG TAB PO SCH (08:40)
[2017-11-30] MEDS: Metoprolol Tartrate 50 MG TAB PO SCH ×2 (08:41→21:04)
[2017-11-30] MEDS: Finasteride 5 MG TAB PO SCH (08:41)
[2017-11-30] MEDS: Allopurinol 100 MG TAB PO SCH (08:41)
[2017-11-30 09:16] LABS: Anion Gap 11 mmol/L (10-20); BUN (Urea Nitrogen) 26 mg/dL (8.4-25.7); Calc. Creatinine Clearance 63 mL/min (70-130); Calcium 8.6 mg/dL (7.8-10.44); Carbon Dioxide 23 mmol/L (23-31); Chloride 116 mmol/L (98-107); Estimated GFR-MDRD 73; Glucose 209 mg/dL (83-110); Potassium 3.1 mmol/L (3.5-5.1); Sodium 147 mmol/L (136-145)
--- NOTE | 2017-11-30 11:52 | PRG ---
DATE OF SERVICE: 11/30/2017 SUBJECTIVE: This morning, he is still encephalopathic, but somewhat better. OBJECTIVE: VITAL SIGNS: His pulse is 73, blood pressure 128/73, sats are 97% on 3 liters, respiration 17. His I's and O's are 2147 input, cannot assess output as he has a diaper on. CHEST: No wheezing or crackles. CARDIAC: Normal S1, S2, no gallops. ABDOMEN: Soft, no masses. LABORATORY DATA AND X-RAY FINDINGS: Chest x-ray shows cardiomegaly. His BNP was elevated. IMPRESSION: 1. Status post cerebrovascular accident. 2. Metabolic encephalopathy. 3. Respiratory failure, retained secretions, poor cough. 4. Probably congestive heart failure. PLAN: Repeat echo is being ordered since his BNP was 3000. Continue antibiotic, neb treatment and s upportive care. Probably switch over to oral antibiotics in the next day or two. We will follow. One-half hour critical care time.
[2017-11-30] MEDS: Brimonidine Tartrate 0.2% Ophth Soln 5 ml Bottle EA EYE SCH ×3 (12:44→23:51)
[2017-11-30] MEDS: Fluconazole 100 MG TAB PO SCH (16:58)
[2017-11-30] MEDS: Haloperidol Lactate 5 MG/ML VIAL IM PRN (21:04)
[2017-11-30] MEDS: Tamsulosin HCl 0.4 MG CAP PO SCH (21:04)
--- NOTE | 2017-11-30 22:26 | PRG ---
DATE OF SERVICE: 11/30/2017 SUBJECTIVE: Mr. Turk has been tolerating his tube feeds well. OBJECTIVE: ABDOMEN: Soft. His bowel sounds are present. IMPRESSION: 1. Dysphagia, status post gastrostomy placement, tolerating tube feeds well now. 2. I will sign off for now. Please call if GI can be of assistance.
[2017-12-01] MEDS: Dextrose 5% in Water 1,000 ML IV SCH ×3 (00:24→17:10)
[2017-12-01 04:27] LABS: Anion Gap 12 mmol/L (10-20); BUN (Urea Nitrogen) 25 mg/dL (8.4-25.7); Calc. Creatinine Clearance 64 mL/min (70-130); Calcium 8.4 mg/dL (7.8-10.44); Carbon Dioxide 25 mmol/L (23-31); Chloride 111 mmol/L (98-107); Estimated GFR-MDRD 74; Glucose 172 mg/dL (83-110); Potassium 3.1 mmol/L (3.5-5.1); Sodium 145 mmol/L (136-145)
[2017-12-01 04:48] LABS: #Eosinphils 0.3 thou/uL (0.0-0.7); #Lymphocytes 1.2 thou/uL (1.20-3.40); #Neutrophils 9.9 thou/uL (1.40-6.50); %Basophils 0.1 % (0.0-1.0); %Eosinophils 2.5 % (0.0-10.0); %Lymphocytes 9.5 % (21.0-51.0); %Monocytes 7.7 % (0.0-10.0); %Neutrophils 80.2 % (42.0-75.0); Hemoglobin 10.2 g/dL (14.0-18.0); Mean Corpuscular HGB CONC 32.4 g/dL (32.0-36.0); Mean Corpuscular Hemoglobin 29.6 pg (27.0-31.0); Mean Corpuscular Volume 91.4 fL (78.0-98.0); Mean Platelet Volume 10.3 fL (7.4-10.4); Platelet Count 119 thou/uL (130-400); RBC Distribution Width 14.1 % (11.5-14.5); Red Blood Cell (RBC) Count 3.45 mill/uL (4.70-6.10); White Blood Cell (WBC) Count 12.3 thou/uL (4.8-10.8)
[2017-12-01] MEDS: BRIMONIDINE TARTRATE 0.2% EA EYE SCH (07:44)
--- NOTE | 2017-12-01 08:11 | RAD ---
AP CHEST: History: Ventilator dependent patient. Date: 12-01-17 Comparison: 11-30-17 FINDINGS: EKG leads seen over the chest. Cardiomegaly is noted. Pulmonary vascular congestion seen. Calcificati on and ectasia of the aorta is seen. Small bilateral pleural effusions seen. IMPRESSION: Cardiomegaly and pulmonary vascular congestion. POS: [facility]
--- NOTE | 2017-12-01 08:43 | PRG ---
DATE OF SERVICE: 12/01/2017 This morning he is a little bit more awake and responsive. His bronch washing grew Klebsiella. He h as still got some secretions in the back of the throat, resuctioned again with the Jennifer this morn ing. PHYSICAL EXAMINATION: VITAL SIGNS: Sats are 94 on 2 liters, respiration 20, temperature 98, blood pressure 199/85. CHEST: Anterior rhonchi. CARDIAC: Normal S1, S2. No gallops. ABDOMEN: Soft, no masses. LABORATORY: He has potassium 3.1. His white count is 12,000. Otherwise, labs unremarkable. He is status post PEG. His sodium clearly has improved from 147 to 145. IMPRESSION: 1. Cerebrovascular accident. 2. Encephalopathy. 3. Aspiration pneumonia. PLAN: Replace potassium. Continue supportive care, PT, antibiotics. We will follow.
[2017-12-01] MEDS: Allopurinol 100 MG TAB PO SCH (09:51)
[2017-12-01] MEDS: FLUoxetine HCl 10 MG CAP PO SCH (09:51)
[2017-12-01] MEDS: Aspirin 81 mg Enteric Coated Tablet PO SCH (09:51)
[2017-12-01] MEDS: Lisinopril 20 MG TAB PO SCH (09:51)
[2017-12-01] MEDS: Amiodarone 200 MG TAB PO SCH ×2 (09:51→22:09)
[2017-12-01] MEDS: Atorvastatin Calcium 10 MG TAB PO SCH (09:51)
[2017-12-01] MEDS: Folic Acid 1 MG TAB PO SCH (09:51)
[2017-12-01] MEDS: Finasteride 5 MG TAB PO SCH (09:51)
[2017-12-01] MEDS: Metoprolol Tartrate 50 MG TAB PO SCH (09:51)
[2017-12-01] MEDS: Brimonidine Tartrate 0.2% Ophth Soln 5 ml Bottle EA EYE SCH ×3 (09:52→22:35)
[2017-12-01] MEDS: Pot Chloride/Pot Bicarb/Cit Ac 25 mEq Effervescent Tablet PO SCH (09:52)
[2017-12-01] MEDS: Cefepime 1 GM in Sodium Chloride 0.9% 100 ML IVPB SCH ×2 (10:45→22:21)
[2017-12-01] MEDS ORDERED: Furosemide 20 MG/2 ML VIAL SLOW IVP SCH (17:45)
[2017-12-01] MEDS: Tamsulosin HCl 0.4 MG CAP PO SCH (22:09)
[2017-12-02] MEDS: Furosemide 20 MG/2 ML VIAL SLOW IVP SCH ×2 (07:12→17:14)
--- NOTE | 2017-12-02 08:36 | RAD ---
CHEST 1 VIEW: HISTORY: Dyspnea. Followup. COMPARISON: 12/01/17. FINDINGS: Cardiac silhouette is magnified and enlarged. Partially obscured by bowel and/or pleural fluid and b ibasilar infiltrates. Pulmonary vasculature engorged with patchy areas of parenchymal opacity simila r in appearance to the prior exam. Mediastinum is midline with aortic calcification. No evidence of pneumothorax. IMPRESSION: Pulmonary edema and other findings are stable. POS: [facility]
[2017-12-02] MEDS: Pot Chloride/Pot Bicarb/Cit Ac 25 mEq Effervescent Tablet PO SCH (09:33)
[2017-12-02] MEDS: Carvedilol 6.25 MG TAB PO SCH ×2 (09:34→17:13)
[2017-12-02] MEDS: FLUoxetine HCl 10 MG CAP PO SCH (09:35)
[2017-12-02] MEDS: Amiodarone 200 MG TAB PO SCH ×2 (09:35→20:52)
[2017-12-02] MEDS: Finasteride 5 MG TAB PO SCH (09:35)
[2017-12-02] MEDS: Lisinopril 5 MG TAB PER TUBE SCH ×2 (09:35→20:51)
[2017-12-02] MEDS: Atorvastatin Calcium 10 MG TAB PO SCH (09:35)
[2017-12-02] MEDS: Folic Acid 1 MG TAB PO SCH (09:35)
[2017-12-02] MEDS: Allopurinol 100 MG TAB PO SCH (09:35)
[2017-12-02] MEDS: Brimonidine Tartrate 0.2% Ophth Soln 5 ml Bottle EA EYE SCH ×3 (09:35→20:53)
[2017-12-02] MEDS: Aspirin 81 mg Enteric Coated Tablet PO SCH (09:36)
[2017-12-02] MEDS: Cefepime 1 GM in Sodium Chloride 0.9% 100 ML IVPB SCH ×2 (09:36→20:52)
[2017-12-02] MEDS: Dextrose 5% in Water 1,000 ML IV SCH (20:51)
[2017-12-02] MEDS: Tamsulosin HCl 0.4 MG CAP PO SCH (20:52)
[2017-12-03] MEDS: hydrALAZINE 20 MG/ML VIAL SLOW IVP PRN (00:56)
[2017-12-03] MEDS: Dextrose 5% in Water 1,000 ML IV SCH (04:37)
[2017-12-03 06:26] LABS: Chloride 100 mmol/L (98-107); Sodium 138 mmol/L (136-145)
[2017-12-03 06:27] LABS: Calcium 8.3 mg/dL (7.8-10.44)
[2017-12-03 06:29] LABS: Anion Gap 11 mmol/L (10-20); Carbon Dioxide 30 mmol/L (23-31)
[2017-12-03 06:31] LABS: BUN (Urea Nitrogen) 24 mg/dL (8.4-25.7); Calc. Creatinine Clearance 69 mL/min (70-130); Estimated GFR-MDRD 70
[2017-12-03] MEDS: Furosemide 20 MG/2 ML VIAL SLOW IVP SCH ×2 (06:31→15:39)
[2017-12-03 06:34] LABS: Glucose 166 mg/dL (83-110)
[2017-12-03] MEDS: Aspirin 81 mg Enteric Coated Tablet PO SCH (10:02)
[2017-12-03] MEDS: Carvedilol 6.25 MG TAB PO SCH ×2 (10:02→15:39)
[2017-12-03] MEDS: Pot Chloride/Pot Bicarb/Cit Ac 25 mEq Effervescent Tablet PO SCH (10:02)
[2017-12-03] MEDS: Atorvastatin Calcium 10 MG TAB PO SCH (10:03)
[2017-12-03] MEDS: Amiodarone 200 MG TAB PO SCH ×2 (10:03→21:23)
[2017-12-03] MEDS: Folic Acid 1 MG TAB PO SCH (10:03)
[2017-12-03] MEDS: FLUoxetine HCl 10 MG CAP PO SCH (10:03)
[2017-12-03] MEDS: Brimonidine Tartrate 0.2% Ophth Soln 5 ml Bottle EA EYE SCH ×3 (10:04→21:23)
[2017-12-03] MEDS: Allopurinol 100 MG TAB PO SCH (10:04)
[2017-12-03] MEDS: Finasteride 5 MG TAB PO SCH (10:04)
[2017-12-03] MEDS: Lisinopril 5 MG TAB PER TUBE SCH ×2 (10:04→21:24)
[2017-12-03] MEDS: Cefepime 1 GM in Sodium Chloride 0.9% 100 ML IVPB SCH ×2 (10:05→21:25)
--- NOTE | 2017-12-03 10:16 | PRG ---
DATE OF SERVICE: 12/03/2017 He remains encephalopathic. PHYSICAL EXAMINATION: VITAL SIGNS: His sats are 95 on 2 liters, respiration rate 18, temperature 99, pulse 84, blood press ure 190/79. CHEST: Bilateral rhonchi. CARDIAC: Normal S1-S2. No gallops. ABDOMEN: Soft, no masses. LABORATORY: His electrolytes are normal. Potassium is 3. Glucose 166. IMPRESSION: 1. Aspiration pneumonia. 2. Cerebrovascular accident. 3. Cardiac arrhythmias. 4. Congestive heart failure. 5. Cardiomyopathy. PLAN: Replace potassium. Otherwise, continue PT and supportive care, feedings. Prognosis remains guarded.
[2017-12-03] MEDS: Tamsulosin HCl 0.4 MG CAP PO SCH (21:24)
[2017-12-04] MEDS: hydrALAZINE 20 MG/ML VIAL SLOW IVP PRN (00:21)
[2017-12-04] MEDS: Dextrose 5% in Water 1,000 ML IV SCH (06:19)
[2017-12-04] MEDS: Furosemide 20 MG/2 ML VIAL SLOW IVP SCH ×2 (06:19→14:27)
[2017-12-04] MEDS: Amiodarone 200 MG TAB PO SCH ×2 (08:36→20:39)
[2017-12-04] MEDS: Pot Chloride/Pot Bicarb/Cit Ac 25 mEq Effervescent Tablet PO SCH (08:36)
[2017-12-04] MEDS: Folic Acid 1 MG TAB PO SCH (08:37)
[2017-12-04] MEDS: Lisinopril 5 MG TAB PER TUBE SCH (08:37)
[2017-12-04] MEDS: Carvedilol 6.25 MG TAB PO SCH ×2 (08:37→17:11)
[2017-12-04] MEDS: FLUoxetine HCl 10 MG CAP PO SCH (08:37)
[2017-12-04] MEDS: Finasteride 5 MG TAB PO SCH (08:37)
[2017-12-04] MEDS: Atorvastatin Calcium 10 MG TAB PO SCH (08:37)
[2017-12-04] MEDS: Allopurinol 100 MG TAB PO SCH (08:37)
[2017-12-04] MEDS: Spironolactone 25 MG TAB PER TUBE SCH (08:37)
[2017-12-04] MEDS: Aspirin 81 mg Enteric Coated Tablet PO SCH (08:38)
[2017-12-04] MEDS: Cefepime 1 GM in Sodium Chloride 0.9% 100 ML IVPB SCH ×2 (08:38→20:40)
[2017-12-04] MEDS: Brimonidine Tartrate 0.2% Ophth Soln 5 ml Bottle EA EYE SCH ×3 (08:38→20:40)
[2017-12-04] MEDS ORDERED: Lisinopril 10 MG TAB PER TUBE SCH (11:15)
--- NOTE | 2017-12-04 15:35 | PRG ---
DATE OF SERVICE: 12/04/2017 SUBJECTIVE: He is somnolent in bed, difficult to arouse. PHYSICAL EXAMINATION: VITAL SIGNS: Temperature is 98.9, pulse 60, blood pressure 155/65, O2 sat 98%. HEENT: Unremarkable. NECK: No JVD. LUNGS: Diminished breath sounds. CARDIAC: S1 and S2 regular. ABDOMEN: Soft. EXTREMITIES: No edema. ASSESSMENT: 1. Cerebrovascular accident. 2. Aspiration pneumonitis. 3. Congestive heart failure. 4. Cardiomyopathy. PLAN: Continuing supportive care. He does not look like he is going to improve. For the time being , he is continuing antibiotics. Would encourage DNR status.
[2017-12-04] MEDS: Tamsulosin HCl 0.4 MG CAP PO SCH (20:39)
[2017-12-05] MEDS: Dextrose 5% in Water 1,000 ML IV SCH (02:28)
[2017-12-05] MEDS: Furosemide 20 MG/2 ML VIAL SLOW IVP SCH ×2 (06:39→13:17)
[2017-12-05] MEDS: Cefepime 1 GM in Sodium Chloride 0.9% 100 ML IVPB SCH ×2 (08:45→21:04)
[2017-12-05] MEDS: Folic Acid 1 MG TAB PO SCH (08:45)
[2017-12-05] MEDS: Carvedilol 6.25 MG TAB PO SCH ×2 (08:45→16:15)
[2017-12-05] MEDS: Amiodarone 200 MG TAB PO SCH ×2 (08:45→20:49)
[2017-12-05] MEDS: Spironolactone 25 MG TAB PER TUBE SCH (08:45)
[2017-12-05] MEDS: Allopurinol 100 MG TAB PO SCH (08:45)
[2017-12-05] MEDS: Aspirin 81 mg Enteric Coated Tablet PO SCH (08:46)
[2017-12-05] MEDS: Atorvastatin Calcium 10 MG TAB PO SCH (08:46)
[2017-12-05] MEDS: Lisinopril 10 MG TAB PER TUBE SCH ×2 (08:46→20:49)
[2017-12-05] MEDS: Finasteride 5 MG TAB PO SCH (08:46)
[2017-12-05] MEDS: Brimonidine Tartrate 0.2% Ophth Soln 5 ml Bottle EA EYE SCH ×3 (08:46→20:49)
[2017-12-05] MEDS: FLUoxetine HCl 10 MG CAP PO SCH (08:46)
[2017-12-05] MEDS: Pot Chloride/Pot Bicarb/Cit Ac 25 mEq Effervescent Tablet PO SCH (08:54)
--- NOTE | 2017-12-05 13:03 | PRG ---
DATE OF SERVICE: 12/05/2017 SUBJECTIVE: The patient is doing reasonably well, had no acute complaints. His says that he is speaking some to her, but I cannot get him to verbalize much to me. PHYSICAL EXAMINATION: VITAL SIGNS: Temperature 98.0, pulse 54, respirations 20, O2 saturation 97% on room air, blood press ure 165/86. HEENT: Unremarkable. NECK: No JVD. LUNGS: Clear anteriorly. CARDIOVASCULAR: S1 and S2 regular. ABDOMEN: Soft. EXTREMITIES: No edema. ASSESSMENT: 1. Cerebrovascular accident. 2. Aspiration pneumonitis. 3. Congestive heart failure. 4. Cardiomyopathy. PLAN: Continue supportive care. I think his prognosis looks to be quite poor. He is continuing on antibiotics, which should be stopped at about the 7-day point.
--- NOTE | 2017-12-05 20:42 | EKG ---
Test Reason : Blood Pressure : / mmHG Vent. Rate : 074 BPM Atrial Rate : 074 BPM P-R Int : 170 ms QRS Dur : 100 ms QT Int : 504 ms P-R-T Axes : 047 -04 151 degrees QTc Int : 559 ms Normal sinus rhythm Prolonged QT Abnormal ECG When compared with ECG of 21-NOV-2017 19:53, Premature atrial complexes are no longer Present Vent. rate has decreased BY 40 BPM Criteria for Septal infarct are no longer Present T wave inversion now evident in Anterior leads Confirmed by Lopez MUÑOZ ([id number]) on 12/05/2017 8:42:42 PM Referred By: DONALD Confirmed By:Lopez MUÑOZ
[2017-12-05] MEDS: Tamsulosin HCl 0.4 MG CAP PO SCH (20:49)
[2017-12-06] MEDS: Dextrose 5% in Water 1,000 ML IV SCH (05:53)
[2017-12-06] MEDS: Furosemide 20 MG/2 ML VIAL SLOW IVP SCH ×2 (05:53→14:04)
--- NOTE | 2017-12-06 08:57 | PRG ---
DATE OF SERVICE: 12/06/2017 Mr. Ortiz looks like he is physically better. He is actually able to talk some to me today, althou gh most of what he says is incoherent. PHYSICAL EXAMINATION: VITAL SIGNS: His temperature is 97.9, pulse 84, respirations 18, O2 sat 94%, blood pressure 174/77. HEENT: Unremarkable. NECK: No JVD. LUNGS: Fairly clear anteriorly. CARDIOVASCULAR: S1 and S2 regular. ABDOMEN: Soft. EXTREMITIES: Trace edema. LABORATORY DATA: No new labs were done today. ASSESSMENT: 1. Cerebrovascular accident. 2. Aspiration pneumonitis. 3. Congestive heart failure. 4. Cardiomyopathy. PLAN: Continue supportive care. From my standpoint, he can probably be moved to the medical floor. It does not look like he will need BiPAP any further.
[2017-12-06] MEDS: Amiodarone 200 MG TAB PO SCH ×2 (09:24→21:54)
[2017-12-06] MEDS: Spironolactone 25 MG TAB PER TUBE SCH (09:24)
[2017-12-06] MEDS: Lisinopril 10 MG TAB PER TUBE SCH ×2 (09:25→21:34)
[2017-12-06] MEDS: Folic Acid 1 MG TAB PO SCH (09:25)
[2017-12-06] MEDS: Aspirin 81 mg Enteric Coated Tablet PO SCH (09:25)
[2017-12-06] MEDS: FLUoxetine HCl 10 MG CAP PO SCH (09:26)
[2017-12-06] MEDS: Finasteride 5 MG TAB PO SCH (09:26)
[2017-12-06] MEDS: Allopurinol 100 MG TAB PO SCH (09:26)
[2017-12-06] MEDS: Atorvastatin Calcium 10 MG TAB PO SCH (09:26)
[2017-12-06] MEDS: Carvedilol 6.25 MG TAB PO SCH ×2 (09:26→16:03)
[2017-12-06] MEDS: Cefepime 1 GM in Sodium Chloride 0.9% 100 ML IVPB SCH ×2 (09:26→21:35)
[2017-12-06] MEDS: Brimonidine Tartrate 0.2% Ophth Soln 5 ml Bottle EA EYE SCH ×3 (09:27→21:36)
[2017-12-06 13:35] VITALS: BMI 29.7
[2017-12-06] MEDS: Tamsulosin HCl 0.4 MG CAP PO SCH (21:35)
[2017-12-07] MEDS: hydrALAZINE 20 MG/ML VIAL SLOW IVP PRN (02:31)
[2017-12-07 04:22] VITALS: TEMP 98.3
[2017-12-07] MEDS: Furosemide 20 MG/2 ML VIAL SLOW IVP SCH (05:18)
[2017-12-07 06:01] LABS: Anion Gap 13 mmol/L (10-20); BUN (Urea Nitrogen) 34 mg/dL (8.4-25.7); Calc. Creatinine Clearance 56 mL/min (70-130); Calcium 8.7 mg/dL (7.8-10.44); Carbon Dioxide 31 mmol/L (23-31); Chloride 94 mmol/L (98-107); Estimated GFR-MDRD 58; Glucose 191 mg/dL (83-110); Potassium 3.4 mmol/L (3.5-5.1); Sodium 135 mmol/L (136-145)
[2017-12-07] MEDS: Allopurinol 100 MG TAB PO SCH (10:26)
[2017-12-07] MEDS: Amiodarone 200 MG TAB PO SCH (10:26)
[2017-12-07] MEDS: Cefepime 1 GM in Sodium Chloride 0.9% 100 ML IVPB SCH (10:26)
[2017-12-07] MEDS: Carvedilol 6.25 MG TAB PO SCH (10:27)
[2017-12-07] MEDS: Finasteride 5 MG TAB PO SCH (10:28)
[2017-12-07] MEDS: Atorvastatin Calcium 10 MG TAB PO SCH (10:28)
[2017-12-07] MEDS: Brimonidine Tartrate 0.2% Ophth Soln 5 ml Bottle EA EYE SCH (10:28)
[2017-12-07] MEDS: Lisinopril 10 MG TAB PER TUBE SCH (10:28)
[2017-12-07] MEDS: Spironolactone 25 MG TAB PER TUBE SCH (10:28)
[2017-12-07] MEDS: Aspirin 81 mg Enteric Coated Tablet PO SCH (10:28)
[2017-12-07] MEDS: Folic Acid 1 MG TAB PO SCH (10:28)
[2017-12-07] MEDS: FLUoxetine HCl 10 MG CAP PO SCH (10:29)
[2017-12-07 11:31] VITALS: BP 167/83
--- NOTE | 2017-12-07 17:36 | PRG ---
DATE OF SERVICE: 12/07/2017. SUBJECTIVE: Mr. Ortiz said hello and shook my hand when I walked in. OBJECTIVE: VITALS: He is afebrile, heart rate 61, blood pressure 116/71, respirations 20, oximetry is 99 on jammie m air. LUNGS: Clear. HEART: Regular rhythm. ABDOMEN: Soft. I signed paperwork for the transfer, he has apparently been accepted .
[2017-12-07] MEDS ORDERED: Amiodarone 200 MG TAB PO SCH (21:00)
--- NOTE | 2017-12-08 14:21 | DIS ---
DATE OF ADMISSION: 11/19/2017 DATE OF TRANSFER TO [facility]: 12/09/2017 DIAGNOSIS: Asymptomatic left carotid stenosis. PROCEDURES: Left carotid endarterectomy, PEG placement. DESCRIPTION OF HOSPITAL STAY: Mr. Ortiz underwent elective left carotid endarterectomy. 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 He was reexplored, found to have no thrombus within h is carotid endarterectomy. On awakening, he again had flaccid paralysis and was taken to CT scanner. CT scan showed no significant carotid stenosis. 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 He eventual ly had a PEG placed for feeding. He underwent rehab and had an inpatient rehabilitation while he was here at the hospital. He had aspiration type pneumonia and was treated with IV antibiotics. He has recovered both lower extremity and upper extremity function, although he is weak. He does speak, bu t has difficulty putting together coherent sentences. He was transferred to [facility] for further strengt hening and work on his speech prior to going home.
--- NOTE | 2017-12-09 14:15 | PQF ---
KEVIN OLIVEROS, JORGE Matos MD [id number] CLINICAL DOCUMENTATION CLARIFICATION FORM: POST DISCHARGE Addendum to original discharge summary date: ____ Late entry note date: __ DATE: 12/09/2017 ATTN: DR. ALONSO Please exercise your independent, professional judgment in responding to the clarification form. Clinical indicators are provided on the bottom of this form for your review Please check appropriate box(s): HEART FAILURE: A. TYPE: [ ] Systolic / HFrEF [ ] Diastolic / HFpEF [ ] Combined Systolic / Diastolic B. ACUITY [ ] Acute [ ] Acute on Chronic [ ] Chronic [ ] Other diagnosis [ x ] Unable to determine In addition, please specify: Present on Admission (POA): [ x ] Yes [ ] No [ ] Unable to determine For continuity of documentation, please document condition throughout progress notes and discharge summary. Thank You. CLINICAL INDICATORS - SIGNS / SYMPTOMS / LABS: Ejection Fraction =__30-35____ % ? Etiology - 12/06 Progress notes - Dr. Hobbs 11/30 PN - Elevated BNP - 3000 11/23 - CXR results - Findings of CHF 11/23 & 11/29 PN - Arrhythmia--tachycardia 11/30, 12/03 -12/04 PN - CHF 11/28 Chest xray - Pulmonary vascular congestion 12/02 Chest xray - Pulmonary edema RISKS: Hypertension Left carotid artery stenosis 12/05 PN - Cardiomyopathy TREATMENTS: Diuresis (This form is maintained as a part of the permanent medical record) 2014 [employer]. All Rights Reserved Karen Phillips, BIRDIE, [facility] [email or web address] [phone] MTDD
[2017-12-22] MEDS ORDERED: Amiodarone 200 MG TAB PO SCH (09:00)
== END 2017-12-07 15:13 | DRG 37 ==
LOC: SURG A 05:45 → CCU 12:52 → 2SE 11-24 10:26 → CCU 11-28 13:02 → IMCU/EMU 11-30 19:25
PROVIDERS: ADMIT Thoracic Surgery (Cardiothoracic Vascular Surgery); ATTEND Thoracic Surgery (Cardiothoracic Vascular Surgery)
PROC: 03CL0ZZ Extirpation of Matter from Left Internal Carotid Artery, Open Approach (ICD-10-PCS; principal; 2017-11-19)
PROC: 03UL0KZ Supplement Left Internal Carotid Artery with Nonautologous Tissue Substitute, Open Approach (ICD-10-PCS; 2017-11-19)
PROC: 0DH63UZ Insertion of Feeding Device into Stomach, Percutaneous Approach (ICD-10-PCS; 2017-11-26)
PROC: 0B9M8ZX Drainage of Bilateral Lungs, Via Natural or Artificial Opening Endoscopic, Diagnostic (ICD-10-PCS; 2017-11-29)
DX: I65.22 Occlusion and stenosis of left carotid artery (principal); J69.0 Pneumonitis due to inhalation of food and vomit; J96.90 Respiratory failure, unspecified, unspecified whether with hypoxia or hypercapnia; G93.41 Metabolic encephalopathy; I42.9 Cardiomyopathy, unspecified; E87.0 Hyperosmolality and hypernatremia; G81.91 Hemiplegia, unspecified affecting right dominant side; I47.1 Supraventricular tachycardia; I97.821 Postprocedural cerebrovascular infarction following other surgery; R47.01 Aphasia; R13.12 Dysphagia, oropharyngeal phase; K29.70 Gastritis, unspecified, without bleeding; T50.2X5A Adverse effect of carbonic-anhydrase inhibitors, benzothiadiazides and other diuretics, initial encounter; Y92.230 Patient room in hospital as the place of occurrence of the external cause; E87.6 Hypokalemia; K59.00 Constipation, unspecified; I48.91 Unspecified atrial fibrillation; I10 Essential (primary) hypertension; N40.0 Benign prostatic hyperplasia without lower urinary tract symptoms; H35.30 Unspecified macular degeneration; K21.9 Gastro-esophageal reflux disease without esophagitis; E78.00 Pure hypercholesterolemia, unspecified; Z87.891 Personal history of nicotine dependence; M10.9 Gout, unspecified; Y83.8 Other surgical procedures as the cause of abnormal reaction of the patient, or of later complication, without mention of misadventure at the time of the procedure; R40.2363 Coma scale, best motor response, obeys commands, at hospital admission; R40.2143 Coma scale, eyes open, spontaneous, at hospital admission; R40.2243 Coma scale, best verbal response, confused conversation, at hospital admission
CPT/HCPCS: 36415; 70496; 70498; 71045; 80048; 80053; 80061; 83735; 83880; 84100; 85007; 85025; 85027; 87070; 87077; 87186; 87205; 93005; 93010; 93306; 94640; 94660; G8978-GP-CM; G8979-GP-CK; G8987-GO-CM; G8988-GO-CJ; G8996-GN-CK; G8996-GN-CM; G8997-GN-CI; G8997-GN-CJ; G8997-GN-CL; J0282; J0360; J0670; J0692; J1100; J1160; J1630; J1642; J1644; J1940; J2060; J2405; J2550; J2704; J2720; J2765; J3010; J3480; J3486; J3490; J7050; J7070; J7620; J7626

== ENCOUNTER 2018-03-07 11:10 | Outpatient (CLI) | payer MEDICARE, OTHER ==
--- NOTE | 2018-03-09 16:17 | RAD ---
FINAL REPORT EMERGENT AFTER HOURS REPORT MODIFIED BARIUM SWALLOW: HISTORY: Dysphagia following cerebral infarction. FINDINGS: A modified barium swallow was performed by the speech therapist. A video was performed. Aspiration was seen with thin liquids. Please see dedicated therapy report for specific findings and recommenda tions. POS: [facility]
== END 2018-03-07 11:11 | disposition home or self-care (01) ==
PROVIDERS: ATTEND Nurse Practitioner Adult Health
DX: I69.391 Dysphagia following cerebral infarction (principal); I69.191 Dysphagia following nontraumatic intracerebral hemorrhage
CPT/HCPCS: 74230

== ENCOUNTER 2018-04-20 14:32 | Inpatient (IN) | payer MEDICARE, OTHER ==
[2018-04-20 15:52] LABS: #Eosinphils 0.1 thou/uL (0.0-0.7); #Lymphocytes 1.2 thou/uL (1.20-3.40); #Monocytes 0.9 thou/uL (0.11-0.59); %Basophils 0.8 % (0.0-1.0); %Eosinophils 2.3 % (0.0-10.0); %Lymphocytes 19.7 % (21.0-51.0); %Monocytes 14.2 % (0.0-10.0); Hemoglobin 9.6 g/dL (14.0-18.0); Mean Corpuscular HGB CONC 32.8 g/dL (32.0-36.0); Mean Corpuscular Hemoglobin 28.1 pg (27.0-31.0); Mean Corpuscular Volume 85.5 fL (78.0-98.0); Mean Platelet Volume 7.4 fL (7.4-10.4); Platelet Count 185 thou/uL (130-400); RBC Distribution Width 15.1 % (11.5-14.5); White Blood Cell (WBC) Count 6.3 thou/uL (4.8-10.8)
[2018-04-20 15:58] LABS: PTT 34.5 SEC (22.9-36.1); Prothrombin Time 13.6 SEC (12.0-14.7)
[2018-04-20 16:15] LABS: ALT (SGPT) 18 U/L (8-55); AST (SGOT) 22 U/L (5-34); Albumin 3.1 g/dL (3.4-4.8); Alkaline Phosphatase 84 U/L (40-150); Anion Gap 14 mmol/L (10-20); BUN (Urea Nitrogen) 17 mg/dL (8.4-25.7); Bilirubin, Total 0.5 mg/dL (0.2-1.2); Calc. Creatinine Clearance 0 mL/min (70-130); Calcium 9.4 mg/dL (7.8-10.44); Carbon Dioxide 24 mmol/L (23-31); Chloride 100 mmol/L (98-107); Estimated GFR-MDRD 57; Glucose 105 mg/dL (83-110); Potassium 3.7 mmol/L (3.5-5.1); Protein, Total 7.1 g/dL (5.8-8.1); Sodium 134 mmol/L (136-145)
[2018-04-20] MEDS ORDERED: Acetaminophen 325 MG TAB PO PRN (16:28)
[2018-04-20 16:33] LABS: CKMB 1.2 ng/mL (0-6.6)
--- NOTE | 2018-04-20 17:12 | CT ---
CT CERVICAL SPINE WITHOUT CONTRAST: HISTORY: Trauma. Fall. Subarachnoid hemorrhage. COMPARISON: None. FINDINGS: The bones are severe demineralized. The occipital condyles appear to be intact. The odontoid proces s is intact. Severe degenerative disease of the C1-C2 articulation, as well as the atlanto-occipital articulation. Severe bilateral facet arthropathy. There is multilevel neural foraminal narrowing due to hypertrophic facet changes. Severe narrowing o f the C3-C4 and C5-C6 disk spaces. Multiple bridging anterior osteophytes. The thyroid is enlarged. Surgical clips along the left carotid bulb. The paraspinal musculature is without hematoma or significant edema. No prevertebral hematoma. The transverse processes appear to be intact. The foramen transversarium do not have a fracture. The lung apices are without pneumothorax. IMPRESSION: Severe degenerative changes. No displaced fracture is appreciated. Underlying osseous demineralizat ion limits evaluation. POS: [facility]
[2018-04-20] MEDS ORDERED: Senokot S 8.6-50 MG TAB PO PRN (18:29)
[2018-04-20] MEDS ORDERED: [UNRECOGNIZED DRUG - REMARK] PO SCH (18:45)
[2018-04-20] MEDS: hydrALAZINE 20 MG/ML VIAL IM PRN ×3 (18:52→21:53)
[2018-04-20] MEDS: Sodium Chloride 0.9% 1,000 ML IV SCH (18:53)
[2018-04-20 19:02] VITALS: BMI 24.5
[2018-04-20 19:55] LABS: Bilirubin Negative (Negative); Blood, Urine Negative (Negative); Clarity CLOUDY (Clear); Glucose, Urine (Dipstick) Negative (Negative); Leukocyte Moderate (Negative); Nitrite Positive (Negative); Protein, Urine (Dipstick) 30 mg/dL (Neg-Trace); Specific Gravity, Urine 1.008 (1.002-1.036); pH, Urine 7.5 (5.0-9.0)
[2018-04-20 19:57] LABS: Bacteria/HPF Rare-Few HPF (None Seen); Hyaline Casts/LPF 0-3 HYALINE CAST LPF (0-3 Hyaline); Squamous Epithelial None Seen HPF (0-3); WBC/HPF 21-50 HPF (0-3)
--- NOTE | 2018-04-20 20:35 | PDOC.FPRHP ---
- History of Present Illness Chief Complaint: AMS s/p fall History of Present Illness: The patient is an 88YOM with a PMH significant for HTN, HLD, and a recent R- sided CVA w/ left-sided deficits & dysarthria who was transferred from the [facility] after presenting there with a CC of AMS following a fall at home on . Of note, the patient's significant dysarthria made it difficult to obtain any history from him so the history was obtained from the patient's who was at the bedside. Per the patient's , the patient fell while getting out of bed early in the morning on 04/13/18. He was found by her brother who lives at home with them sleeping on the floor next to the bed in no apparent distress. The only injury they noticed was an abrasion & redness above his left eyebrow. The patient was then helped back into bed with no further issues. However, the noted that over the course of the week the patient was much more anxious and agitated than usual. She also reported that he occasionally complained of a headache but otherwise denied any complaints of N/V, incontinence, syncope or seizure activity, or lethargy. The patient went to a scheduled appointment with his PCP this AM and was sent in for a brain scan just to make sure he did not sustain any injuries with his fall and it was noted that he did, in fact, have an acute left-sided subdural and subarachnoid hemorrhage. He was then directly admitted to the [facility] ED and subsequently transferred to [facility] for further evaluation and management by neurosurgery. - Allergies/Adverse Reactions Allergies Allergy/AdvReac Type Severity Reaction Status Date / Time No Known Allergies Allergy Verified 04/20/18 20:14 - Home Medications Medication Instructions Recorded Confirmed Type Allopurinol 100 mg PO DAILY 11/13/17 04/20/18 History Aspirin 81 mg PO DAILY 11/13/17 04/20/18 History Finasteride 5 mg PO DAILY 11/13/17 04/20/18 History Lisinopril 20 mg PO DAILY 11/13/17 04/20/18 History Tamsulosin HCl 0.4 mg PO HS 11/13/17 04/20/18 History Atorvastatin Calcium [Lipitor] 10 mg PO DAILY #30 tab 11/15/17 04/20/18 Rx Brimonidine/Dorzolamide/Pf 1 drop TOP Q8H 11/18/17 04/20/18 History [Brimonidine 0.15%-Dorzolam 2%] Folic Acid 1 tab PO DAILY 11/18/17 04/20/18 History Amiodarone HCl 200 mg PO DAILY 04/20/18 04/20/18 History Ascorbic Acid [Vitamin C] 500 mg PO BID 04/20/18 04/20/18 History Carvedilol [Coreg] 25 mg PO BID 04/20/18 04/20/18 History Escitalopram Oxalate 1 tab PO DAILY 04/20/18 04/20/18 History Famotidine 20 mg PO HS 04/20/18 04/20/18 History Melatonin 5 mg PO HS 04/20/18 04/20/18 History Multivitamin [Multivitamins] 1 cap PO DAILY 04/20/18 04/20/18 History Mupirocin [Mupirocin 2% Ointment] 1 inch PER TUBE DAILY 04/20/18 04/20/18 History Naproxen Sodium [Aleve] 440 mg PO DAILY 04/20/18 04/20/18 History Polyethylene Glycol 3350 [Miralax] 1 pk PO PRN PRN 04/20/18 04/20/18 History Potassium Chloride 1 tab PO DAILY 04/20/18 04/20/18 History risperiDONE [RisperDAL] 0.25 mg PO HS 04/20/18 04/20/18 History - History PMHx: HTN, HLD, R-sided CVA w/ left-sided deficits, BPH, anxiety, GERD, atrial fibrillation, macular degeneration, OA PSHx: L CEA in oct, cataract surgery, macular degeneration surgery, R carpal tunnel release, L knee surgery FHx: Mother- heart trouble Social: Former smoker but quit at least 20 years ago per . No EtOH or drug use per . Lives at home with and [id number]. - Vital signs BP: [126/76] HR: [96] RR: [16] Tmax: [99] Pox: [93]% on [RA] Wt: [73kg] - Physical Exam Constitutional: NAD, awake, alert and oriented, other (frail appearing) HEENT: grossly normal vision, MMM, other (no pupillary repsonse to light noted) Neck: supple, FROM Heart: RRR, normal S1/S2, no murmurs/rubs/gallops, pulses present, no edema Lungs: CTAB, no respiratory distress, good air movement, no rales/rhonchi, no wheezing Abdomen: soft, non-tender, bowel sounds present, other (PEG tube in place) Musculoskeletal: normal structure, other (decreased ROM in left upper and lower extremities) Neurological: other (Difficult to assess as patient would not follow all commands & has significant dysarthria. 1/5 strength in left extremeties noted vs. 5/5 on the right) Skin: good turgor, no jaundice, other (small wounds over left chest covered with scabs) Heme/Lymphatic: other (purpura over left eye) Psychiatric: other (anxious appearing and not fully cooperative with examination ; unable to assess memory 2/2 marked dysarthria) FMR H&P: Results - Labs Result Diagrams: 04/21/18 04:44 04/21/18 04:44 Lab results: WBC 6.3 thou/uL (4.8-10.8) 04/20/18 15:38 Hgb 9.6 g/dL (14.0-18.0) L 04/20/18 15:38 Hct 29.1 % (42.0-52.0) L 04/20/18 15:38 MCV 85.5 fL (78.0-98.0) 04/20/18 15:38 Plt Count 185 thou/uL (130-400) 04/20/18 15:38 Neutrophils % 63.0 % (42.0-75.0) 04/20/18 15:38 Sodium 134 mmol/L (136-145) L 04/20/18 15:38 Potassium 3.7 mmol/L (3.5-5.1) 04/20/18 15:38 Chloride 100 mmol/L (98-107) 04/20/18 15:38 Carbon Dioxide 24 mmol/L (23-31) 04/20/18 15:38 BUN 17 mg/dL (8.4-25.7) 04/20/18 15:38 Creatinine 1.21 mg/dL (0.7-1.3) 04/20/18 15:38 Glucose 105 mg/dL (83-110) 04/20/18 15:38 Calcium 9.4 mg/dL (7.8-10.44) 04/20/18 15:38 Total Bilirubin 0.5 mg/dL (0.2-1.2) 04/20/18 15:38 AST 22 U/L (5-34) 04/20/18 15:38 ALT 18 U/L (8-55) 04/20/18 15:38 Alkaline Phosphatase 84 U/L (40-150) 04/20/18 15:38 CK-MB (CK-2) 1.2 ng/mL (0-6.6) 04/20/18 15:38 Serum Total Protein 7.1 g/dL (5.8-8.1) 04/20/18 15:38 Albumin 3.1 g/dL (3.4-4.8) L 04/20/18 15:38 Urine Ketones Negative mg/dL (Negative) 04/20/18 18:15 Urine Blood Negative (Negative) 04/20/18 18:15 Urine Nitrite Positive (Negative) H 04/20/18 18:15 Ur Leukocyte Esterase Moderate (Negative) H 04/20/18 18:15 Urine RBC 4-6 HPF (0-3) 04/20/18 18:15 Urine WBC 21-50 HPF (0-3) H 04/20/18 18:15 Ur Squamous Epith Cells None Seen HPF (0-3) 04/20/18 18:15 Urine Bacteria Rare-Few HPF (None Seen) 04/20/18 18:15 - Radiology Interpretation Other Status: report reviewed by me (CT cervical spine- significant degernerative changes w/ no acute fractures) FMR H&P: A/P - Problem List (1) Acute intra-cranial hemorrhage Current Visit: Yes Status: Acute Code(s): I62.9 - NONTRAUMATIC INTRACRANIAL HEMORRHAGE, UNSPECIFIED (2) Atrial fibrillation Current Visit: Yes Status: Acute Code(s): I48.91 - UNSPECIFIED ATRIAL FIBRILLATION (3) 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 involving left middle cerebral artery territory Current Visit: Yes Status: Acute Code(s): Z86.73 - PRSNL HX OF TIA (TIA), AND CEREB INFRC W/O RESID DEFICITS (4) History of CVA with residual deficit Current Visit: Yes Status: Acute Code(s): I69.30 - UNSPECIFIED SEQUELAE OF CEREBRAL INFARCTION (5) GERD (gastroesophageal reflux disease) Current Visit: Yes Status: Acute Code(s): K21.9 - GASTRO-ESOPHAGEAL REFLUX DISEASE WITHOUT ESOPHAGITIS (6) Macular degeneration Current Visit: Yes Status: Acute Code(s): H35.30 - UNSPECIFIED MACULAR DEGENERATION (7) Osteoarthritis Current Visit: Yes Status: Acute Code(s): M19.90 - UNSPECIFIED OSTEOARTHRITIS, UNSPECIFIED SITE (8) BPH (benign prostatic hyperplasia) Current Visit: No Status: Chronic Code(s): N40.0 - BENIGN PROSTATIC HYPERPLASIA WITHOUT LOWER URINRY TRACT SYMP (9) Hypertension Current Visit: No Status: Chronic Code(s): I10 - ESSENTIAL (PRIMARY) HYPERTENSION - Plan Acute left-sided ICH: - Neurosurgery managing. Will continue PRN hydralazine in addition to home BP meds PRN to keep BP < 150 systolic. Will hold all anticoagulation. - repeat head CT in the AM per NS recs. Aseptic pyuria: - Urine showed WBC but no bacteria. Actually improved from previous UAs per chart review & patient asymptomatic. No further workup or treatment indicated at this time. Normocytic Anemia: - Aware, hgb at 9.6 on admission which is within baseline range per chart review. - Will continue to monitor w/ Qd CBCs. indeterminate troponin: - Patient denied any chest pain. Likely 2/2 acute ICH. - Will repeat and get EKG if patient does report ACS symptoms. h/o R CVA w/ L-sided deficits & dysarthria: - Aware, will resume home meds w/ exception of ASA 2/2 ICH. HTN: - Aware, will treat as described above. HLD: - Aware, will resume home meds. Atrial fibrillation: - Will resume antiarrhythmic but will hold anticoagulation & ASA 2/2 ICH. GERD: - Will resume home meds. anxiety: - Will resume home meds. macular degeneration: - Will resume home meds. BPH: - Will resume home meds. Insomnia: - Will resume home meds. Dispo: Will continue medical management of chronic medical problems. Will await recs from neurosurgery regarding clearance for d/c. FMR H&P: Upper Level - Pertinent history 88M presents for 1 week of fall. He fell out of bed on 04/13/18. It was unnoticed until his discovered him sleeping on the floor. He noted to have brusiing on his face, but otherwise no concerning sign. As week progress, noted him to become more agitated and irritable, and he complained about a new headache. They went to their PCP who advised them to get a CT scan. CT scan showed acute subarachnoid and subdural hemorrhage on left with associated mass effect flattening the atrium of left lateral ventricle. Cervical spine ct show severe degenerative changes but no fracture appreciated. He was then transferred to [facility] in [place]. Neurosurgery was consulted as primary team. It is reported that they will obtain repeat head CT the following day, but currently has no plan for operation. - Pertinent findings Gen: Alert, oriented to self and place, but not time. HEENT: Bruising noted on left orbit. Vision and hearing grossly intact. Moist mucosal membrane. Midline trachea Resp: CTA bilat CV: RRR with no obvious m/g/r GI: Normoactive, not tender Ext: No edema Neuro: CN II-XII grossly intact, though pupil sluggishly reactive to light, mild tongue deviation to right. Strength 5/5 in UE and LE. Unable to assess tone /reflex as patient does not cooperate in relaxing. GCS 15. AO x1. Has dysarthria but per , is at baseline. - Plan Date/Time: 04/20/182034 I, [Hamilton Chua], have evaluated this patient and agree with findings/plan as outlined by nurse intern resident. Pertinent changes/additions are listed here. 1. Intercranial hemorrhage - Subdural and subarachnoid bleed on ct scan - Will follow with neuro rec, SBP under 150, follow up CT scan in morning, hold anticoagulation - Admit to stroke with NIH monitoring - We will follow along for medical management of his other conditions. 2. Aseptic Pyruia - In comparison to previous UA, his current one is improved. Has always had pyuria, but with bacteria in past. WBC in past had been more numerous. - He is able to communicate that he had headache, but did not indicate dysuria. - At this point, unlikely to represent infection with no bacteria in urine and improved UA compared to previous, also asymptomatic. 3. Normocytic anemia - At baseline compared to previous visit. Consider anemia of chronic disease vs decreased bone marrow production due to age. Will treat as needed. 4. Hx of afib - On aspirin for this due to risk of bleed. - Admit to tele obs, hold aspirin at this time due to bleed. - Continue amiodarone 5. GERD - Chronic stable issue. - Continue home med 6. Depression - Chronic stable issue - Continue home med 7. Insomnia - Chronic stable issue - Continue home risperdal for this 8. Indeterminate trop - No chest pain and EKG did not show sign of ischemic changes - Likely due to acute brain bleed. 9. BPH: Continue home med Addendum - Attending - Attending Attestation Date/Time: 04/21/18 [id number] I personally evaluated the patient and discussed the management with Dr. Chua and Jerrod on 04/20. I agree with and repeated the History, Examination, Assessment and Plan documented above with any addition or exceptions noted below. SDH/SAH - monitor. Control BP and glucose. PT/OT. Follow neurosx recs. Falls - d/t his previous neurologic insults and that he has been hospitalized/ NH for some time. He recently made the transition back home. Other comorbidities - restart home meds. Avoid antiplatelets or pharm ppx for VTE.
[2018-04-20] MEDS ORDERED: Polyethylene Glycol 3350 17 GM Packet PO PRN (21:15)
[2018-04-20] MEDS: Atorvastatin Calcium 10 MG TAB PO SCH (21:56)
[2018-04-20] MEDS: risperiDONE 0.25 MG TAB PO SCH (21:56)
[2018-04-20] MEDS: Melatonin 3 MG TAB PO PRN (21:56)
[2018-04-20] MEDS: Tamsulosin HCl 0.4 MG CAP PO SCH (21:56)
--- NOTE | 2018-04-21 00:42 | HP ---
This is a 50-minute initial patient evaluation of which greater than 50% of the exam was spent in counseling and coordinating the patient's care. Remainder of the exam was spent in reviewing the patient's medical records and review of appropriate imaging studies. CHIEF COMPLAINT: Status post fall 1 week ago with left traumatic and subdural hematoma without significant mass effect or midline shift. HISTORY OF PRESENT ILLNESS: Mr. Ortiz is a pleasant, though very hard of hearing 88-year-old male presents to [facility] for the above complaints. Majority of the history is provided by the patient's and her brother as well as the patient's daughter who is a day stay nurse here at [facility]. Apparently, the patient has undergone significant surgery including carotid endarterectomy and sustained a stroke intraoperatively. He was placed on 81 mg aspirin. Continue to have some slurred speech and right facial drooping as well as right arm weakness, although the patient's family notes that he has had significant improvement in the facial droop as well as right arm weakness. He was sent to inpatient rehab and then here and then home and has only been home for roughly 2 weeks. The patient also has a history of atrial fibrillation, but again is only on 81 mg aspirin. The fall was unwitnessed, although the patient's notes that she was sleeping in bed with him and sometime between midnight and 3:00 a.m., he fell out of bed and supposedly struck the left side of his face. They were on their way to patient's primary care's office when he the primary care redirected the patient to [facility] given the fall and history of being on aspirin and a head CT was obtained that showed left traumatic subarachnoid hemorrhage and small subdural hematoma without significant midline shift or mass effect. It appears to be negative for fracture. PHYSICAL EXAMINATION: GENERAL: The patient is extremely hard of hearing. HEENT: He has different stages of healing of a bruise around the left eye. Otherwise, his pupils are equal, round, and reactive bilaterally. He does have a slight amount of right facial droop, although this is very trace. He is very difficulty to understand, but the patient's family note this is baseline. Secondary to motivation, as he is called, he does not formally follow commands in all four extremities, although he is moving them spontaneously. I do not appreciate any significant weakness into the right upper extremity. He is in a trauma collar and does not appear to have any tenderness to palpation of the neck. IMPRESSION AND DIAGNOSES: 1. Status post fall a week ago with left traumatic subarachnoid and subdural hematoma. 2. Aspirin 81 mg for previous cerebrovascular accident and atrial fibrillation. PLAN: Discussed the patient's case and imaging with Dr. Ocampo. At this time, we will admit the patient to the stroke unit with q.2 hours neuro checks. I will repeat head CT in the morning. I have updated the family that we do not plan to do any type of neurosurgical intervention and would be able to monitor this bleed with CT scans and neurologic exam. It is a certainly good news for the patient and his family. Again, we will hold his aspirin after his systolic blood pressure remain less than 150. We will clear his cervical spine in regard to wearing his collar. We would however like him to be n.p.o. at this time and may clear him to eat a thickened liquid diet. Head of bed will be elevated at 30 degrees. Otherwise again, we will repeat his head CT tomorrow morning, sooner should symptoms dictate and we will ask that our medical colleagues help to manage the patient's multiple medical issues. Please call with any changes in patient's neurologic status. Job ID: [id number]
[2018-04-21 05:56] LABS: Anion Gap 12 mmol/L (10-20); BUN (Urea Nitrogen) 16 mg/dL (8.4-25.7); Calc. Creatinine Clearance 46 mL/min (70-130); Calcium 8.8 mg/dL (7.8-10.44); Carbon Dioxide 24 mmol/L (23-31); Chloride 102 mmol/L (98-107); Estimated GFR-MDRD 57; Glucose 90 mg/dL (83-110); Potassium 3.4 mmol/L (3.5-5.1); Sodium 135 mmol/L (136-145)
[2018-04-21 07:22] LABS: Hemoglobin 9.4 g/dL (14.0-18.0); Mean Corpuscular HGB CONC 32.5 g/dL (32.0-36.0); Mean Corpuscular Hemoglobin 27.8 pg (27.0-31.0); Mean Corpuscular Volume 85.3 fL (78.0-98.0); Mean Platelet Volume 7.4 fL (7.4-10.4); Platelet Count 204 thou/uL (130-400); RBC Distribution Width 15.2 % (11.5-14.5); Red Blood Cell (RBC) Count 3.37 mill/uL (4.70-6.10); White Blood Cell (WBC) Count 6.8 thou/uL (4.8-10.8)
--- NOTE | 2018-04-21 07:56 | PDOC.FM ---
- Subjective Subjective: A&OX2. Complains of pain in his suprapubic area. Answers yes/no and "what." Per daughter he's more "out of it" today than yesterday. - Objective MAR Reviewed: Yes Vital Signs & Weight: Vital Signs (12 hours) Temp Pulse Resp BP BP Pulse Ox 04/21/18 07:45 99.1 F 90 18 147/86 H 93 L 04/21/18 04:00 99 F 87 16 126/76 93 L 04/21/18 00:00 100.7 F H 96 16 121/68 94 L 04/20/18 22:56 98 116/70 04/20/18 21:53 105 H 177/103 H 04/20/18 20:56 95 189/96 H 04/20/18 20:00 98.2 F 102 H 16 151/85 H 96 Weight Weight 73.028 kg I&O: 04/20/18 04/21/18 04/22/18 06:59 06:59 06:59 Intake Total 800 Balance 800 Result Diagrams: 04/21/18 04:44 04/21/18 04:44 Phys Exam - Physical Examination Constitutional: NAD HEENT: PERRLA, moist MMs Respiratory: no wheezing, no rales, clear to auscultation bilateral Cardiovascular: RRR, no significant murmur Gastrointestinal: soft suprapubic tenderness Musculoskeletal: no edema, pulses present right arm weakness; b/l lower extremity weakness; left arm 3/5 strength single word communication Deviation from normal: a&ox2 Skin: no rash Dx/Plan (1) UTI (urinary tract infection) Status: Acute (2) Subdural hematoma, acute Code(s): S06.5X9A - TRAUM SUBDR HEM W LOC OF UNSP DURATION, INIT Status: Acute (3) Acute intra-cranial hemorrhage Code(s): I62.9 - NONTRAUMATIC INTRACRANIAL HEMORRHAGE, UNSPECIFIED Status: Acute (4) Subarachnoid hemorrhage Code(s): I60.9 - NONTRAUMATIC SUBARACHNOID HEMORRHAGE, UNSPECIFIED Status: Acute (5) Paroxysmal A-fib Code(s): I48.0 - PAROXYSMAL ATRIAL FIBRILLATION Status: Chronic (6) History of CVA with residual deficit Code(s): I69.30 - UNSPECIFIED SEQUELAE OF CEREBRAL INFARCTION Status: Acute (7) 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 involving left middle cerebral artery territory Code(s): Z86.73 - PRSNL HX OF TIA (TIA), AND CEREB INFRC W/O RESID DEFICITS Status: Acute (8) Hypertension Code(s): I10 - ESSENTIAL (PRIMARY) HYPERTENSION Status: Chronic (9) GERD (gastroesophageal reflux disease) Code(s): K21.9 - GASTRO-ESOPHAGEAL REFLUX DISEASE WITHOUT ESOPHAGITIS Status: Acute (10) BPH (benign prostatic hyperplasia) Code(s): N40.0 - BENIGN PROSTATIC HYPERPLASIA WITHOUT LOWER URINRY TRACT SYMP Status: Chronic - Plan Plan: Acute left-sided ICH: -Neurosurgery managing. S/p fall one week ago. -Will continue PRN hydralazine in addition to home BP meds PRN to keep BP < 150 systolic. Will hold all anticoagulation. -repeat head CT in the AM per NS recs. -will order PT/OT/CM to assist with recs on placement Acute Cystitis - urine culture from 03/30 grew E. coli sens to ceftriaxone and macrobid. Since pt is only tolerated pureed nectar thick liquids. Will start on ceftriaxone. Normocytic Anemia: - Aware, hgb at 9.6 on admission which is within baseline range per chart review. -Will continue to monitor w/ Qd CBCs. -MCV 85, will order iron studes and b12/folate to further evaluate for a mixed anemia indeterminate troponin: - Patient denied any chest pain. Likely 2/2 acute ICH. - Will trend and get EKG if patient does report ACS symptoms. h/o left endarterectomy with left thalamic infarct and right sided deficits and dysarthria - Aware, will resume home meds w/ exception of ASA 2/2 ICH. HTN: - continue coreg, lisinopril HLD: - continue lipitor Atrial fibrillation: - continue amiodarone and hold anticoagulation & ASA 2/2 ICH. GERD: - continue omeprazole anxiety: - continue lexapro macular degeneration: - continue brimonidine, dorzolamide BPH: -continue flomax Insomnia: - pt was given risperidal prn insomnia/agitation outpatient, will continue Dispo: Will continue medical management of chronic medical problems. Will await recs from neurosurgery regarding clearance for d/c.
[2018-04-21 08:21] LABS: Band 10 % (5-11); Eosinophils 5 % (0-10); Lymphocytes 32 % (21-51); MDiff Complete? YES; Monocytes 14 % (0-10); Neutrophil 39 % (42-75); Ovalocytes SLIGHT = 2-5 cells (100X) (0-1/hpf); Platelet Morphology Comment Appears Adequate; Polychromasia SLIGHT = 2-3 cells (100X) (0-2/hpf)
[2018-04-21] MEDS ORDERED: Potassium Chloride 20 MEQ TAB PO SCH (09:00)
[2018-04-21] MEDS: Brimonidine Tartrate 0.2% Ophth Soln 5 ml Bottle EA EYE SCH ×3 (09:55→22:53)
[2018-04-21] MEDS: Dorzolamide HCl 2% Ophth Soln 10 ml Bottle EA EYE SCH ×3 (09:56→22:53)
[2018-04-21] MEDS: cefTRIAXone\\ROCEPHIN 1 GM in Sodium Chloride 0.9% 100 ML IVPB SCH (09:56)
[2018-04-21] MEDS: Carvedilol 25 MG TAB PO SCH ×2 (09:57→22:53)
[2018-04-21] MEDS: Multivitamin W/ Minerals 1 TAB PO SCH (09:57)
[2018-04-21] MEDS: Pantoprazole 40 MG VIAL IVP SCH (09:57)
[2018-04-21] MEDS: Escitalopram Oxalate 10 mg Tablet PO SCH (09:57)
[2018-04-21] MEDS: Lisinopril 10 MG TAB PO SCH (09:58)
[2018-04-21] MEDS: Finasteride 5 MG TAB PO SCH (09:58)
[2018-04-21] MEDS: Ascorbic Acid 500 mg Chewable Tablet PO SCH ×2 (10:02→22:53)
[2018-04-21] MEDS: Folic Acid 1 MG TAB PO SCH (10:02)
[2018-04-21] MEDS: Amiodarone 200 MG TAB PO SCH (10:02)
--- NOTE | 2018-04-21 10:33 | PRG ---
DATE OF SERVICE: A 30 minutes initial hospital visit note, in which 30 minutes were spent in reviewing the imaging record, evaluation, examination of the patient, formulation of plan. Greater than 50% of the time was spent in counseling on Phiilppe Ortiz, 1930. Mr. Ortiz is an 88-year-old man who fell a week ago. He was admitted for left acute on chronic subdural hematoma with mild mass effect. He has a history of right occipital stroke. He has been at his neurologic baseline. At baseline, he is confused and is difficult to understand when he vocalizes, however, appears to be at his baseline. He has an essentially nonfocal exam otherwise except for the history of the right occipital stroke. We will arrange followup in a couple of weeks with a repeat head CT. I would recommend him be off aspirin during this time to allow the subdural hematoma to resorb. We will repeat a head CT this morning to ensure stability. Job ID: [id number]
[2018-04-21] MEDS: Mupirocin 2% Ointment 22 GM Tube TOP SCH (10:40)
[2018-04-21] MEDS: Sodium Chloride 0.9% (PF) 10 ML VIAL IV SCH (10:41)
--- NOTE | 2018-04-21 10:59 | PRG ---
DATE OF SERVICE: 04/21/2018 SUBJECTIVE: Mr. Ortiz is an unfortunate 88-year-old man with probable dementia, who sustained some intracranial bleeds following a fall at home. He was becoming progressively more somnolent, so we have rechecked head CT for this morning, whose report is pending. OBJECTIVE: VITAL SIGNS: His blood pressure today is 147/86. His room air oxygen saturation is 93%, and he is afebrile. LABORATORY DATA: CBC demonstrates a white count of 16,100, hemoglobin is 9.4, hematocrit 28.7. Chemistries: Sodium is 135, potassium 3.4, chloride 102, bicarb 24, BUN 16, creatinine 1.2. His exam is unchanged except for the aforementioned progressive somnolence, which we are checking on with a head CT. We will continue to follow with the Neurosurgery Service. I also feel this gentleman would likely greatly benefit from some long term before going home and we will discuss this with case management. Job ID: [id number]
--- NOTE | 2018-04-21 13:42 | CT ---
CT BRAIN WITHOUT CONTRAST: HISTORY: Followup hematoma. COMPARISON: CT brain of prior day. FINDINGS: Old right parietooccipital infarction. The left convexity subdural hematoma has not increased in siz e. Midline shift is not significant. There is encephalomalacia of the right lateral ventricle. Anterior falx thickness is similar which may be due to ossification. No new hemorrhage. No intraparenchymal hemorrhage. Bilateral lateral ventricular hemorrhage is present, new in the atria of the right lateral ventricle. Small volume left sylvian fissure hemorrhage, subarachnoid in nature. IMPRESSION: Slight interval increase in intraventricular hemorrhage. Subdural hemorrhage and subarachnoid hemorr cecily is similar. There is a combination of very minimal flattening of the lateral ventricle on the l eft with expected dilatation of the right lateral ventricle due to encephalomalacia from right pariet otemporal infarction. POS: [facility]
[2018-04-21] MEDS: Sodium Chloride 0.9% 1,000 ML IV SCH (16:41)
[2018-04-21] MEDS ORDERED: Famotidine 20 MG TAB PO SCH (21:00)
[2018-04-21] MEDS: Tamsulosin HCl 0.4 MG CAP PO SCH (22:53)
[2018-04-21] MEDS: Atorvastatin Calcium 10 MG TAB PO SCH (22:53)
[2018-04-21] MEDS: Melatonin 3 MG TAB PO PRN (22:53)
[2018-04-21] MEDS: risperiDONE 0.25 MG TAB PO SCH (22:53)
--- NOTE | 2018-04-22 06:44 | PDOC.FM ---
- Subjective Subjective: Resting in bed. Randomly calls out with single words of "hey" and "what." Does responds to simple commands. - Objective MAR Reviewed: Yes Vital Signs & Weight: Vital Signs (12 hours) Temp Pulse Resp BP Pulse Ox 04/22/18 04:00 98.7 F 66 16 138/61 92 L 04/22/18 00:00 97.7 F 70 16 124/57 L 95 04/21/18 20:30 94 L 04/21/18 20:00 98.1 F 70 16 123/63 94 L Weight Weight 73.028 kg I&O: 04/20/18 04/21/18 04/22/18 06:59 06:59 06:59 Intake Total 800 Balance 800 Result Diagrams: 04/21/18 04:44 04/21/18 04:44 Phys Exam - Physical Examination Constitutional: NAD HEENT: PERRLA, moist MMs Respiratory: no wheezing, no rales, clear to auscultation bilateral Cardiovascular: RRR, no significant murmur Gastrointestinal: soft suprapubic tenderness Musculoskeletal: no edema, pulses present Neurological: non-focal, normal sensation Skin: no rash, cap refill <2 seconds Dx/Plan (1) UTI (urinary tract infection) Status: Acute (2) Subdural hematoma, acute Code(s): S06.5X9A - TRAUM SUBDR HEM W LOC OF UNSP DURATION, INIT Status: Acute (3) Acute intra-cranial hemorrhage Code(s): I62.9 - NONTRAUMATIC INTRACRANIAL HEMORRHAGE, UNSPECIFIED Status: Acute (4) Subarachnoid hemorrhage Code(s): I60.9 - NONTRAUMATIC SUBARACHNOID HEMORRHAGE, UNSPECIFIED Status: Acute (5) Paroxysmal A-fib Code(s): I48.0 - PAROXYSMAL ATRIAL FIBRILLATION Status: Chronic (6) History of CVA with residual deficit Code(s): I69.30 - UNSPECIFIED SEQUELAE OF CEREBRAL INFARCTION Status: Acute (7) 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 involving left middle cerebral artery territory Code(s): Z86.73 - PRSNL HX OF TIA (TIA), AND CEREB INFRC W/O RESID DEFICITS Status: Acute (8) Hypertension Code(s): I10 - ESSENTIAL (PRIMARY) HYPERTENSION Status: Chronic (9) GERD (gastroesophageal reflux disease) Code(s): K21.9 - GASTRO-ESOPHAGEAL REFLUX DISEASE WITHOUT ESOPHAGITIS Status: Acute (10) BPH (benign prostatic hyperplasia) Code(s): N40.0 - BENIGN PROSTATIC HYPERPLASIA WITHOUT LOWER URINRY TRACT SYMP Status: Chronic - Plan Plan: 88 yo gentleman with pmhx of left endarterectomy and left thalamic cva admitted s/p fall with a subdural, subarachnoid, and intraventricular hemorrhage. #Acute subdural, subarachnoid, intraventricular hemorrhage: -Neurosurgery signed off. Recommended follow-up outpatient. S/p fall one week ago. -Will continue PRN hydralazine in addition to home BP meds PRN to keep BP < 150 systolic. Will hold all anticoagulation. -repeat head CT slightly worse. -rehab screen in progress. Pending approval. #Acute Cystitis - urine culture from 04/21 growing presumptive E. coli and from 03/30 grew E. coli sens to ceftriaxone and macrobid, pt was treated at that time, but seems to have recurrence or possibly never completely resolved infection. Since pt is only tolerated pureed nectar thick liquids. Will continue on ceftriaxone. #Normocytic Anemia: -Aware, hgb at 9.6 on admission which is within baseline range per chart review. -Will continue to monitor w/ Qd CBCs. -MCV 85, will order iron studes and b12/folate to further evaluate for a mixed anemia #indeterminate troponin: - Patient denied any chest pain. Likely 2/2 acute ICH. - Will trend and get EKG if patient does report ACS symptoms. #h/o left endarterectomy with left thalamic infarct and right sided deficits and dysarthria - Aware, will resume home meds w/ exception of ASA 2/2 ICH. #HTN: - continue coreg, lisinopril #HLD: - continue lipitor #Atrial fibrillation: - continue amiodarone and hold anticoagulation & ASA 2/2 ICH. #GERD: - continue omeprazole #anxiety: - continue lexapro #macular degeneration: - continue brimonidine, dorzolamide #BPH: -continue flomax #Insomnia: - pt was given risperidal prn insomnia/agitation outpatient, will continue Dispo: Will continue medical management of chronic medical problems.
[2018-04-22 08:08] LABS: CKMB 0.7 ng/mL (0-6.6)
[2018-04-22] MEDS: Amiodarone 200 MG TAB PO SCH (09:16)
[2018-04-22] MEDS: Pantoprazole 40 MG VIAL IVP SCH (09:16)
[2018-04-22] MEDS: Escitalopram Oxalate 10 mg Tablet PO SCH (09:16)
[2018-04-22] MEDS: Carvedilol 25 MG TAB PO SCH ×2 (09:16→19:25)
[2018-04-22] MEDS: Finasteride 5 MG TAB PO SCH (09:16)
[2018-04-22] MEDS: Lisinopril 10 MG TAB PO SCH (09:17)
[2018-04-22] MEDS: Folic Acid 1 MG TAB PO SCH (09:17)
[2018-04-22] MEDS: Ascorbic Acid 500 mg Chewable Tablet PO SCH ×2 (09:19→19:25)
[2018-04-22] MEDS: cefTRIAXone\\ROCEPHIN 1 GM in Sodium Chloride 0.9% 100 ML IVPB SCH (09:19)
[2018-04-22] MEDS: Multivitamin W/ Minerals 1 TAB PO SCH (09:19)
[2018-04-22] MEDS: Brimonidine Tartrate 0.2% Ophth Soln 5 ml Bottle EA EYE SCH ×2 (09:29→14:53)
[2018-04-22] MEDS: Mupirocin 2% Ointment 22 GM Tube TOP SCH (09:29)
[2018-04-22] MEDS: Dorzolamide HCl 2% Ophth Soln 10 ml Bottle EA EYE SCH ×2 (09:30→14:56)
[2018-04-22] MEDS ORDERED: Acetaminophen 650 MG in Premix Bag 1 BAG IVPB PRN (09:32)
[2018-04-22] MEDS ORDERED: Acetaminophen 325 MG TAB PO PRN (09:37)
[2018-04-22] MEDS: Sodium Chloride 0.9% (PF) 10 ML VIAL IV SCH (10:25)
--- NOTE | 2018-04-22 11:04 | PRG ---
DATE OF SERVICE: 04/22/2018 ADDENDUM: Please add this as an addendum to the note of Dr. Martha Higgins. Mr. Ortiz is still very somnolent, although arousable. His head CT yesterday did show some extension of his bleed. Again, Neurosurgery is counseling and recommending a conservative approach. Case management is currently working on placement. The family has opted for DNR status. Job ID: [id number]
[2018-04-22 11:30] VITALS: TEMP 98.5
[2018-04-22] MEDS: Sodium Chloride 0.9% 1,000 ML IV SCH (14:57)
[2018-04-22 15:54] VITALS: BP 144/67
[2018-04-22] MEDS: Atorvastatin Calcium 10 MG TAB PO SCH (19:25)
[2018-04-22] MEDS: Tamsulosin HCl 0.4 MG CAP PO SCH (19:25)
[2018-04-22] MEDS: Melatonin 3 MG TAB PO PRN (19:25)
[2018-04-22] MEDS: risperiDONE 0.25 MG TAB PO SCH (19:26)
--- NOTE | 2018-04-23 18:21 | EKG ---
Test Reason : Blood Pressure : / mmHG Vent. Rate : 075 BPM Atrial Rate : 075 BPM P-R Int : 184 ms QRS Dur : 108 ms QT Int : 426 ms P-R-T Axes : 035 -27 031 degrees QTc Int : 475 ms Normal sinus rhythm Possible Anterior infarct , age undetermined Left ventricular hypertrophy Abnormal ECG Confirmed by ART SCHAEFFER, GUNNER Gonsalez ([id number]), scientific editor PENNY BERNSTEIN ([id number]) on 04/23/2018 6:21:08 PM Referred By: Confirmed By:GUNNER CORDOVA MD
[2018-04-25 16:11] LABS: Folate,Hemolysate 472.8 ng/mL (Not Estab.); Hematocrit 25.6 % (37.5-51.0); RBC Folate Test Component 1847 ng/mL (>498)
== END 2018-04-22 19:51 | DRG 83 ==
LOC: ERS 14:32 → 2SE 16:01
PROVIDERS: ADMIT Surgery; ATTEND Surgery
DX: S06.5X9A Traumatic subdural hemorrhage with loss of consciousness of unspecified duration, initial encounter (principal); N30.00 Acute cystitis without hematuria; W06.XXXA Fall from bed, initial encounter; S06.6X9A Traumatic subarachnoid hemorrhage with loss of consciousness of unspecified duration, initial encounter; I48.0 Paroxysmal atrial fibrillation; H91.90 Unspecified hearing loss, unspecified ear; B96.20 Unspecified Escherichia coli [E. coli] as the cause of diseases classified elsewhere; F03.90 Unspecified dementia, unspecified severity, without behavioral disturbance, psychotic disturbance, mood disturbance, and anxiety; D64.9 Anemia, unspecified; Z66 Do not resuscitate; R40.2362 Coma scale, best motor response, obeys commands, at arrival to emergency department; R40.2242 Coma scale, best verbal response, confused conversation, at arrival to emergency department; R40.2142 Coma scale, eyes open, spontaneous, at arrival to emergency department; E78.5 Hyperlipidemia, unspecified; I10 Essential (primary) hypertension; K21.9 Gastro-esophageal reflux disease without esophagitis; S00.83XA Contusion of other part of head, initial encounter; N40.0 Benign prostatic hyperplasia without lower urinary tract symptoms; F41.9 Anxiety disorder, unspecified; F32.9 Major depressive disorder, single episode, unspecified; I69.322 Dysarthria following cerebral infarction; M47.812 Spondylosis without myelopathy or radiculopathy, cervical region; G47.00 Insomnia, unspecified; M19.90 Unspecified osteoarthritis, unspecified site; Z98.890 Other specified postprocedural states; Z79.899 Other long term (current) drug therapy; Z79.82 Long term (current) use of aspirin; Z87.891 Personal history of nicotine dependence
CPT/HCPCS: 36415; 70450; 72125; 80048; 80053; 81001; 82553; 82607; 82728; 82747; 83540; 83550; 84484; 85014; 85025; 85610; 85730; 87077; 87086; 87186; 93005; C9113; J0360; J0696; J7050

== ENCOUNTER 2018-05-04 09:08 | Outpatient (CLI) | payer MEDICARE, OTHER ==
--- NOTE | 2018-05-04 11:25 | CT ---
CT BRAIN WITHOUT CONTRAST: Date: 05/04/18 HISTORY: Subdural hematoma. S06.5XOA. Follow-up intracranial hemorrhage. COMPARISON: 04/21/18. FINDINGS: The left-sided subdural hematoma is not significantly increased in size. This extends over the entire left convexity. Old right MCA territory infarction. There is mild encephalomalacia associated with old infarct. There are extensive chronic microvascular ischemic changes. No new intra-axial or extra-axial hemorrhage. No midline shift or mass effect. Globes are normal. IMPRESSION: 1. Interval resolution of intraventricular hemorrhage. 2. No significant size increase of the left convexity subdural hematoma. Partial liquefaction of the hematoma. POS: [facility]
== END 2018-05-04 09:09 | disposition home or self-care (01) ==
LOC: TBSIIMAG 09:08
PROVIDERS: ATTEND Surgery
DX: S06.5X0D Traumatic subdural hemorrhage without loss of consciousness, subsequent encounter (principal)
CPT/HCPCS: 70450

== ENCOUNTER 2018-06-01 10:07 | Outpatient (CLI) | payer MEDICARE, OTHER ==
--- NOTE | 2018-06-01 10:37 | CT ---
FCT brain. HISTORY: Follow-up subdural hematoma. Noncontrast enhanced CT images of the brain obtained. Compariso n made to previous exam from 05/04/2018. Noncontrast enhanced CT images of the brain demonstrates an old area of stroke in the right parietal region with adjacent areas of gliosis and encephalomalacia changes. This is unchanged since the previ ous exam. Previously noted left parietal subdural chronic hematoma significantly reduced in size. Maximum thick ness previously measured approximately 1.6 cm now having decreased significantly measuring approximat abisai 6 mm. There is marked reduction in the left subdural collection. No evidence of midline shift seen. No evidence of acute stroke seen. IMPRESSION: marked reduction of left parietal subdural hematoma.
== END 2018-06-01 10:08 | disposition home or self-care (01) ==
LOC: TBSIIMAG 10:07
PROVIDERS: ATTEND Surgery
DX: I62.03 Nontraumatic chronic subdural hemorrhage (principal)
CPT/HCPCS: 70450

== ENCOUNTER 2018-07-13 07:35 | Inpatient (IN) | payer MEDICARE, OTHER ==
[2018-07-13] MEDS ORDERED: Ketorolac Tromethamine 30 MG/ML VIAL ONE (08:12)
[2018-07-13 08:37] LABS: #Eosinphils 0.4 thou/uL (0.0-0.7); #Lymphocytes 1.9 thou/uL (1.20-3.40); #Monocytes 1.2 thou/uL (0.11-0.59); #Neutrophils 5.9 thou/uL (1.40-6.50); %Basophils 0.5 % (0.0-1.0); %Lymphocytes 19.8 % (21.0-51.0); %Monocytes 12.9 % (0.0-10.0); %Neutrophils 62.8 % (42.0-75.0); Hemoglobin 10.5 g/dL (14.0-18.0); Mean Corpuscular HGB CONC 32.8 g/dL (32.0-36.0); Mean Corpuscular Hemoglobin 28.4 pg (27.0-31.0); Mean Corpuscular Volume 86.4 fL (78.0-98.0); Mean Platelet Volume 9.1 fL (7.4-10.4); Platelet Count 130 thou/uL (130-400); RBC Distribution Width 15.1 % (11.5-14.5); Red Blood Cell (RBC) Count 3.69 mill/uL (4.70-6.10); White Blood Cell (WBC) Count 9.4 thou/uL (4.8-10.8)
--- NOTE | 2018-07-13 08:39 | RAD ---
EXAM: 4 views of the right knee HISTORY: Knee pain after fall COMPARISON: None FINDINGS: No knee effusion is seen. There is no evidence of acute fracture or dislocation. Severe tri compartmental joint space narrowing and osteophyte formation is seen consistent with osteoarthritis. There is calcification of the medial and lateral menisci. Moderate diffuse soft tissu e swelling is present. IMPRESSION: Severe degenerative changes of the right knee without acute osseous abnormality
[2018-07-13] MEDS ORDERED: Ondansetron PF 4 MG/2 ML Vial ONE (08:46)
[2018-07-13] MEDS ORDERED: Morphine 2 MG/ML SYRINGE ONE (08:46)
--- NOTE | 2018-07-13 08:52 | RAD ---
RIGHT HIP 2 VIEWS: Date: 07/13/18 HISTORY: Injury to right hip following a fall yesterday. FINDINGS: There is a minimally impacted subcapital right femoral neck fracture with slight foreshortening. Eden re bone demineralization. Bilateral hip joint arthrosis. IMPRESSION: Subcapital right femoral neck fracture with minimal foreshortening. Severe bone demineralization. POS: [facility]
--- NOTE | 2018-07-13 08:53 | RAD ---
RIGHT FEMUR 4 VIEWS: Date: 07/13/18 HISTORY: Fall with injury and pain to right hip and right lower extremity. FINDINGS: Moderate degenerative change at the right hip with spurring from the femoral head. There is evidence of a subcapital fracture of the femoral neck. This is poorly delineated. Femur is otherwise intact. Severe DJD at the right knee is noted. IMPRESSION: Evidence of subcapital fracture of the femoral neck. CT is recommended for confirmation and further e valuation. POS: [facility]
--- NOTE | 2018-07-13 08:58 | RAD ---
EXAM: Single view of the chest HISTORY: Chest pain COMPARISON: 12/02/2017 FINDINGS: Single view of the chest shows a normal sized cardiomediastinal silhouette. Atheroscleroti c calcifications are seen in the aorta. There is no evidence of consolidation, mass, or pleural effusion. The bones are unremarkable. IMPRESSION: No evidence of acute cardiopulmonary disease
[2018-07-13 09:20] LABS: PTT 30.9 SEC (22.9-36.1); Prothrombin Time 13.6 SEC (12.0-14.7)
[2018-07-13 09:34] LABS: Chloride 102 mmol/L (98-107); Potassium 3.8 mmol/L (3.5-5.1); Sodium 136 mmol/L (136-145)
[2018-07-13 09:35] LABS: Albumin 3.6 g/dL (3.4-4.8); Calcium 9.8 mg/dL (7.8-10.44)
[2018-07-13 09:36] LABS: Globulin 3.3 g/dL (2.4-3.5); Protein, Total 6.9 g/dL (5.8-8.1)
[2018-07-13 09:37] LABS: Anion Gap 12 mmol/L (10-20); Bilirubin, Total 0.8 mg/dL (0.2-1.2); Carbon Dioxide 26 mmol/L (23-31); Glucose 123 mg/dL (83-110)
[2018-07-13 09:40] LABS: AST (SGOT) 18 U/L (5-34); Alkaline Phosphatase 90 U/L (40-150)
[2018-07-13 09:41] LABS: BUN (Urea Nitrogen) 28 mg/dL (8.4-25.7); Calc. Creatinine Clearance 0 mL/min (70-130); Estimated GFR-MDRD 53
[2018-07-13 09:43] LABS: ALT (SGPT) 23 U/L (8-55)
[2018-07-13] MEDS ORDERED: Ondansetron PF 4 MG/2 ML Vial IVP PRN (10:28)
[2018-07-13] MEDS ORDERED: Dextrose 50% Abboject 50 ML SYRINGE SLOW IVP PRN (10:28)
[2018-07-13] MEDS ORDERED: Dextrose 5% in Water 1,000 ML IV PRN (10:28)
[2018-07-13] MEDS ORDERED: Promethazine HCl 25 MG/ML VIAL IM PRN (10:28)
[2018-07-13] MEDS ORDERED: Morphine 2 MG/ML SYRINGE SLOW IVP PRN (10:45)
[2018-07-13 10:47] LABS: Bilirubin Negative (Negative); Blood, Urine Negative (Negative); Clarity CLEAR (Clear); Glucose, Urine (Dipstick) Negative (Negative); Leukocyte Small (Negative); Nitrite Negative (Negative); Protein, Urine (Dipstick) 30 mg/dL (Neg-Trace); Specific Gravity, Urine 1.017 (1.002-1.036); pH, Urine 7.5 (5.0-9.0)
[2018-07-13 10:52] LABS: Bacteria/HPF None Seen HPF (None Seen); Hyaline Casts/LPF 0-3 HYALINE CAST LPF (0-3 Hyaline); Pathc Cast-AUWi Flag 0.27 (0-2.49); RBC/HPF 0-3 HPF (0-3); Squamous Epithelial 0-3 HPF (0-3)
[2018-07-13 10:57] LABS: Renal Epithelial None Seen HPF (0-3); Transitional Epithelial NONE SEEN HPF (0-3)
[2018-07-13] MEDS ORDERED: Fentanyl 100 MCG/2 ML VIAL ONE (12:04)
[2018-07-13] MEDS ORDERED: Ketamine 50 MG/ML (10ML VIAL) ONE (12:06)
--- NOTE | 2018-07-13 12:41 | HP ---
ADMITTING TEAM: Trauma. TRAUMA SURGEON: Dr. Roberts. HISTORY OF PRESENT ILLNESS: This is an 88-year-old white male, who had a fall yesterday around 4:00 p.m. The patient was transferring himself from the chair to couch. Because of his poor vision, he missed couch and sat down hard on the floor. The patient was able to pull himself up into his chair. A few hours later around 7:00 p.m., his took him to the bathroom via wheelchair and after he used the restroom, he was having difficulty getting up from the toilet. He could not bear weight on his right leg. His was able to help him down slowly to the floor. No loss of consciousness. He did not hit his head. The patient denies any chest pain or palpitations. He is reports pain in his right hip. The patient has a past medical history of atrial fibrillation, hypertension, and a stroke, which left him with slight weakness on his right side as well as some difficulty swallowing. The patient is on a mechanical soft diet with medications administered through his PEG tube. The patient also has a recent UTI that he started treatment for yesterday with nitrofurantoin. He gets frequent UTIs. In the ED, the patient received Zofran 2 mg, morphine, and Toradol 15 mg. PAST MEDICAL HISTORY: Atrial fibrillation, macular degeneration, GERD, hypertension, stroke in 2018 with some right-sided deficits and difficulty swallowing, congestive heart failure, frequent UTIs on his second day of treatment with nitrofurantoin. PAST SURGICAL HISTORY: Left knee two surgeries including knee replacement, carotid endarterectomy, bilateral cataracts, PEG tube. ALLERGIES: NO KNOWN DRUG ALLERGIES. MEDICATIONS: 1. Tylenol. 2. Amiodarone 200 mg. 3. Vitamin C 500 mg. 4. Aspirin 325 mg. 5. Coreg 25 mg. 6. Escitalopram oxalate 20 mg. 7. Finasteride 5 mg. 8. Folic acid. 9. Klor-Con M20 of 20 mEq daily. 10. Lipitor 10 mg. 11. Melatonin 5 mg. 12. Multivitamin. 13. Norvasc 5 mg. 14. Pantoprazole 40 mg once daily. 15. Chio-Colace 8.6/50 mg. 16. Senokot 8.6 mg p.r.n. for constipation. 17. Tamsulosin 0.4 mg. 18. Nitrofurantoin 50 mg b.i.d. for 7 days. FAMILY HISTORY: Noncontributory. SOCIAL HISTORY: The patient has remote smoking history, quit in his 20s, no alcohol use, no drug use. The patient lives at home with his . REVIEW OF SYSTEMS: GENERAL: Denies fever or chills. Does have frequent headaches. Denies dizziness. EYES: Has poor vision. No eye pain. EARS: Has some difficulty hearing. No ear pain. NOSE AND THROAT: Denies rhinorrhea, cough, congestion, or sore throat. LUNGS: Denies wheezing or shortness of breath. CHEST: Denies palpitations or chest pain. ABDOMEN: Reports intermittent right-sided abdominal pain secondary to gallstones, does not hurting him today. Denies nausea, vomiting, diarrhea, or constipation. Denies hematochezia. : Reports frequency. Denies dysuria. Denies hematuria. EXTREMITIES: Reports some weakness on right upper and bilateral lower extremities. Denies numbness. PHYSICAL EXAMINATION: VITAL SIGNS: Blood pressure 146/75, pulse 65, respirations 17, temperature 97.6 , O2 saturation 96% on room air. PRIMARY SURVEY: 1. Airway is intact. 2. Equal breath sounds bilaterally. 3. 2+ distal pulses palpable in the radial arteries bilaterally and posterior tibial pulses bilaterally. 4. GCS 15. Gross motor and sensation intact. 5. No lacerations, bruises, or external bleeding. SECONDARY SURVEY: HEAD: Normocephalic, atraumatic. No gross palpable skull deformities or tenderness. EYES: Pupils 2 to 3 bilaterally. PERRLA tracking. Sclerae noninjected. ENT: No epistaxis. No septal hematoma. Midface stable to manipulation. No blood in oropharynx. No teeth visualized. No anterior neck injury or crepitus or tenderness. NECK: No lymphadenopathy. MUSCULOSKELETAL: C-spine. No step-offs or deformities. Nontender. CHEST: Nontender. No crepitus. No abrasions or ecchymosis. Equal chest rise bilaterally. Lungs bilaterally clear to auscultation. ABDOMEN: Soft, nontender, nondistended with positive bowel sounds. EXTREMITIES: No gross deformities, 2+ radial and posterior tibial pulses bilaterally. Cap refill less than 2 seconds. NEUROLOGIC: 5/5 strength in bilateral parking lot signaler. Deferred. Plantar and dorsiflexion of right leg due to pain. Grossly normal sensation in all 4 extremities. LABORATORY DATA: White blood cells 9.4, hemoglobin 10.5, hematocrit 31.9, platelets 130. PT 13.6, INR 1.0, PTT 30.9. Sodium 136, potassium 3.8, chloride 102, carbon dioxide 26, BUN 28, creatinine 1.28, glucose 123, calcium 9.8, total bilirubin 0.8, AST 18, ALT 23, alkaline phosphatase 90. CK-MB 1, troponin 0.041. Total protein 6.9, albumin 3.6. DIAGNOSTIC IMAGING: Rt Hip x-ray 2 views: subcapital right femoral neck fracture with minimal for shortening. Severe bone demineralization. Knee, four views of the right knee: severe degenerative changes of the right knee without acute osseous abnormality. Right femur 4V XR: evidence of subcapital fracture of the femoral neck. Chest x-ray: no evidence of acute cardiopulmonary disease. ASSESSMENT: 1. Right subcapital fracture of the femoral neck. 2. Status post fall from standing. 3. Past medical history of atrial fibrillation, macular degeneration. gastroesophageal reflux disease, hypertension, stroke, congestive heart failure, frequent urinary tract infections. 4. Demand ischemia, stable. PLAN: We will admit the patient to surgical floor. The patient will be continued on n.p.o. for repair of the femur fracture by Dr. Medina. We will keep the patient comfortable and control his pain. We will consult case management for discussion of placement versus home once the patient is stable. The patient was seen and discussed with Dr. Roberts, family is in agreement with the plan. Job ID: [id number] [facility]
[2018-07-13] MEDS ORDERED: ePHEDrine 50 MG/ML VIAL ONE (13:01)
[2018-07-13] MEDS ORDERED: PROPOFOL 200 MG/20 ML VIAL ONE (13:01)
[2018-07-13] MEDS ORDERED: Tranexamic Acid 1,000 MG/10 ML VIAL ONE ×3 (13:09→14:15)
[2018-07-13] MEDS ORDERED: Bupivacaine PF 0.5% 30 ML VIAL ONE (13:31)
[2018-07-13] MEDS ORDERED: methylPREDNISolone Acetate 40 mg/ml Vial ONE (13:31)
--- NOTE | 2018-07-13 14:29 | RAD ---
Exam: Single view of the pelvis HISTORY: Status post right hip arthroplasty COMPARISON: None FINDINGS: A single view the pelvis shows the patient to be status post right hip arthroplasty without . Hardware lucency or fracture. Overlying skin douglas are from recent surgery. No degenerative changes seen in the left hip. IMPRESSION: Status post right hip arthroplasty without evidence of complication.
--- NOTE | 2018-07-13 14:30 | RAD ---
EXAM: Single view of the right hip HISTORY: Right hip arthroplasty COMPARISON: None FINDINGS: The patient is status post right hip arthroplasty without apparent hardware lucency or frac ture. Overlying skin douglas are from recent surgery. IMPRESSION: Status post right hip arthroplasty without evidence of complication.
--- NOTE | 2018-07-13 16:34 | CON ---
DATE OF CONSULTATION: 07/13/2018 CONSULTING PHYSICIAN: Moe Medina MD REASON FOR CONSULTATION: Right hip fracture. BRIEF CLINICAL HISTORY: Philippe is an 88-year-old white male, who was admitted by the Trauma Service after he fell at home. He was brought to [facility] via EMS. Plain radiographs demonstrated a valgus angulated right femoral neck fracture. Our service was consulted for definitive orthopedic management of this problem. PAST MEDICAL HISTORY: Significant for CHF, peripheral vascular disease, and atrial fibrillation for which he takes aspirin. PAST SURGICAL HISTORY: Endarterectomy. PHYSICAL EXAMINATION: GENERAL: This is an elderly male, appearing his stated age, in no apparent distress or discomfort. EXTREMITIES: Visual inspection of the right lower extremity demonstrates him to be shortened and externally rotated relative to the left. He is neurovascularly intact in the extremity with the hips not examined on the underlying fracture. IMAGING STUDIES: AP pelvis, 2 view, right hip demonstrates a valgus angulated right femoral neck fracture. IMPRESSION: 1. Right hip femoral neck fracture. 2. Advanced age. 3. Congestive heart failure. PLAN: 1. The risks, benefits, options, alternatives, and rationale for proceeding with right hip hemiarthroplasty has been explained in great detail with the patient. He is ready to proceed. All questions were answered. No guarantee of outcome stated or implied. 2. We may perform an intra-articular corticosteroid injection on the right knee below his fracture for palliative reason, so he can have an easier time with ambulating and rehabilitating. Job ID: [id number]
[2018-07-13 17:09] VITALS: BMI 22.4
[2018-07-13] MEDS: Acetaminophen 1,000 MG in Premix Bag 1 BAG IVPB SCH (17:29)
[2018-07-13] MEDS: Sodium Chloride 0.9% 1,000 ML IV SCH (17:29)
[2018-07-13] MEDS: traMADol HCl 50 MG TAB PO SCH (17:30)
--- NOTE | 2018-07-13 20:48 | OP ---
DATE OF PROCEDURE: 07/13/2018 OPERATION PERFORMED: Right hip hemiarthroplasty. PREOPERATIVE DIAGNOSIS: Right femoral neck fracture. POSTOPERATIVE DIAGNOSIS: Right femoral neck fracture. OCEAN FREIGHT AGENT: Rudy Jordan PA-C IMPLANTS: DePuy basic cemented stem size 7, 51 mm bipolar head with a +5 femoral neck. INDICATIONS: Mr. Ortiz is a 88-year-old male who fell and fractured his femoral neck. He was indicated for hemiarthroplasty of the hip to restore anatomic alignment and promote healing and promote early mobilization. Risks have been reviewed. Risks do include instability of the hip, wound complication, medical complication, and others. DESCRIPTION OF PROCEDURE: Mr. Ortiz was identified in the preoperative holding area. The correct extremity was marked. He was carried to the operating room. He was positioned supine on the operative table. General anesthesia was induced. A multidisciplinary time-out was performed. The right lower extremity was prepped and draped in sterile fashion. We began the procedure with a posterior approach to the hip. We dissected down through the subcutaneous tissues to the fascia. We then exposed the underlying short external rotators of the hip. These were subperiosteally divided from the proximal femur. We then removed the broken femoral head. We performed a new osteotomy of the femoral neck. We then prepared the proximal femur with a broach and reamers. We reamed up to a size 8. We decided to cement the hip. We trialed with a size 7. +5 femoral head gave good length. We reduced the hip. At this point, we checked for stability. There was full range of motion and good stability. At this point, we removed the trial components. We then placed our final components. We reduced the hip once more. We then irrigated and closed the deep tissues and capsule with a #5 Ethibond suture followed by a #2 Vicryl suture in a running fashion. We closed in layers. A sterile dressing was applied. The patient was taken to the recovery room in good condition without complication. Job ID: [id number]
[2018-07-13] MEDS: traMADol HCl 50 MG TAB PO PRN (21:36)
[2018-07-13] MEDS: Carvedilol 25 MG TAB PO SCH (21:36)
[2018-07-13] MEDS: Amlodipine 5 MG TAB PO SCH (21:37)
[2018-07-13] MEDS: Melatonin 3 MG TAB PO PRN (21:37)
[2018-07-13] MEDS: Ascorbic Acid 500 mg Chewable Tablet PO SCH (21:37)
[2018-07-13] MEDS: Senokot S 8.6-50 MG TAB PO SCH (21:37)
[2018-07-13] MEDS: Finasteride 5 MG TAB PO SCH (21:38)
[2018-07-13] MEDS: CEFAZOLIN 2 GM in Premix Bag 1 BAG IVPB SCH (21:38)
[2018-07-13] MEDS: Tamsulosin HCl 0.4 MG CAP PO SCH (21:38)
[2018-07-13] MEDS: Ibuprofen 600 MG TAB PO SCH (21:38)
[2018-07-13] MEDS: Nitrofurantoin Monohyd/M-Cryst 100 MG CAP PO SCH (21:38)
[2018-07-13] MEDS: Brimonidine Tartrate 0.2% Ophth Soln 5 ml Bottle EA EYE SCH (22:06)
[2018-07-13] MEDS: Famotidine 20 MG TAB PO SCH (22:06)
[2018-07-13] MEDS: Dorzolamide HCl 2% Ophth Soln 10 ml Bottle EA EYE SCH (22:06)
[2018-07-13] MEDS: Amiodarone 200 MG TAB PO SCH (23:53)
[2018-07-14] MEDS: traMADol HCl 50 MG TAB PO SCH ×5 (00:05→23:06)
[2018-07-14] MEDS: Acetaminophen 1,000 MG in Premix Bag 1 BAG IVPB SCH ×2 (00:07→05:15)
[2018-07-14] MEDS: Sodium Chloride 0.9% 1,000 ML IV SCH (01:41)
[2018-07-14] MEDS: CEFAZOLIN 2 GM in Premix Bag 1 BAG IVPB SCH (05:16)
[2018-07-14] MEDS: Ibuprofen 600 MG TAB PO SCH ×3 (05:17→20:18)
[2018-07-14 06:10] LABS: Anion Gap 15 mmol/L (10-20); BUN (Urea Nitrogen) 29 mg/dL (8.4-25.7); Calc. Creatinine Clearance 42 mL/min (70-130); Calcium 9.2 mg/dL (7.8-10.44); Carbon Dioxide 21 mmol/L (23-31); Chloride 103 mmol/L (98-107); Estimated GFR-MDRD 56; Glucose 148 mg/dL (83-110); Magnesium 1.7 mg/dL (1.6-2.6); Phosphorus 4.7 mg/dL (2.3-4.7); Sodium 135 mmol/L (136-145)
[2018-07-14] MEDS ORDERED: Magnesium 2 GM/50 ML 2 GM in Premix Bag 1 BAG IVPB SCH (07:30)
[2018-07-14 08:22] LABS: #Lymphocytes 1.1 thou/uL (1.20-3.40); #Monocytes 0.5 thou/uL (0.11-0.59); #Neutrophils 7.6 thou/uL (1.40-6.50); %Eosinophils 0.3 % (0.0-10.0); %Lymphocytes 11.5 % (21.0-51.0); %Monocytes 5.2 % (0.0-10.0); %Neutrophils 82.9 % (42.0-75.0); Hemoglobin 9.6 g/dL (14.0-18.0); Mean Corpuscular HGB CONC 32.6 g/dL (32.0-36.0); Mean Corpuscular Hemoglobin 28.2 pg (27.0-31.0); Mean Corpuscular Volume 86.4 fL (78.0-98.0); Mean Platelet Volume 8.9 fL (7.4-10.4); Platelet Count 113 thou/uL (130-400); White Blood Cell (WBC) Count 9.2 thou/uL (4.8-10.8)
[2018-07-14] MEDS: Amiodarone 200 MG TAB PO SCH (09:29)
[2018-07-14] MEDS: Escitalopram Oxalate 10 mg Tablet PO SCH (09:30)
[2018-07-14] MEDS: Folic Acid 1 MG TAB PO SCH (09:30)
[2018-07-14] MEDS: Ascorbic Acid 500 mg Chewable Tablet PO SCH ×2 (09:30→20:17)
[2018-07-14] MEDS: Carvedilol 25 MG TAB PO SCH ×2 (09:31→22:08)
[2018-07-14] MEDS: Multivit, Therapeutic 1 TAB PO SCH (09:31)
[2018-07-14] MEDS: Senokot S 8.6-50 MG TAB PO SCH ×2 (09:31→20:15)
[2018-07-14] MEDS: Atorvastatin Calcium 10 MG TAB PO SCH (09:32)
[2018-07-14] MEDS: Nitrofurantoin Monohyd/M-Cryst 100 MG CAP PO SCH ×2 (09:33→20:15)
[2018-07-14] MEDS: Polyethylene Glycol 3350 17 GM Packet PO SCH (09:34)
[2018-07-14] MEDS: Aspirin 81 mg Enteric Coated Tablet PO SCH ×2 (09:57→20:15)
--- NOTE | 2018-07-14 13:50 | PRG ---
DATE OF SERVICE: 07/14/2018 SUBJECTIVE: The patient is an elderly 88-year-old male seen, awake and alert, sitting up in bed this morning. The patient's pain is well controlled. Physical and Occupational Therapy are ordered for the patient. He is one day status post right hip hemiarthroplasty with Dr. Medina. The patient has been tolerating his diet well. OBJECTIVE: VITAL SIGNS: Temperature 97.8, pulse 56, respirations 18, O2 93% on room air, and blood pressure 159/68. GENERAL: This is an elderly white male, in no acute distress. CARDIAC: Regular rate and rhythm. No murmurs, rubs, or gallops. PULMONARY: Bilaterally clear to auscultation. No wheezing or crackles. GASTROINTESTINAL: Abdomen is soft, nontender. Positive bowel sounds. EXTREMITIES: Cap refill less than 2 seconds. Warm and nonerythematous. The patient is able to move all four extremities. LABORATORY DATA: LAB FINDINGS: White blood cell 7.2, hemoglobin 9.6, hematocrit 29.4, platelets 113. Sodium 135, potassium 4.0, chloride 103, carbon dioxide 21, BUN 29, creatinine 1.23, phosphorus 4.7, magnesium 1.7. DIAGNOSTIC FINDINGS: Pelvis x-ray: Status post right hip hemiarthroplasty without evidence of complication. Hip x-ray is right: Status post right hip hemiarthroplasty without evidence of complication. ASSESSMENT: 1. Right subcapital fracture of the femoral neck, status post right hip hemiarthroplasty. 2. Status post mechanical fall from standing without loss of conscious. 3. History of atrial fibrillation. 4. Macular degeneration. 5. Gastroesophageal reflux disease. 6. Hypertension. 7. History of stroke with residual deficits including swallowing and some weakness on the right side. 8. Congestive heart failure. 9. Frequent urinary tract infections. 10. Demand ischemia, stable. 11. Hypomagnesemia. 12. Thrombocytopenia. PLAN: We have resumed the patient's home medications. The patient will restart his aspirin 81 mg daily. We will replace his magnesium today. Rehab screen is in place. The patient's Enciso can be discontinued. The patient will remain on his full course of nitrofurantoin, which will be completed on July 18. The patient continues to have his pain well controlled. Physical Therapy and Occupational Therapy will evaluate and treat the patient. The patient was seen on morning rounds with Dr. Roberts. Job ID: [id number]
[2018-07-14] MEDS: Acetaminophen 500 MG TAB PO SCH ×3 (14:23→23:06)
[2018-07-14] MEDS: Brimonidine Tartrate 0.2% Ophth Soln 5 ml Bottle EA EYE SCH ×3 (18:13→20:18)
[2018-07-14] MEDS: Dorzolamide HCl 2% Ophth Soln 10 ml Bottle EA EYE SCH ×3 (18:14→20:18)
[2018-07-14] MEDS: Tamsulosin HCl 0.4 MG CAP PO SCH (20:16)
[2018-07-14] MEDS: Amlodipine 5 MG TAB PO SCH (20:16)
[2018-07-14] MEDS: risperiDONE 0.25 MG TAB PO SCH (20:16)
[2018-07-14] MEDS: Finasteride 5 MG TAB PO SCH (20:17)
[2018-07-14] MEDS: traMADol HCl 50 MG TAB PO PRN (20:17)
[2018-07-14] MEDS: Famotidine 20 MG TAB PO SCH (20:17)
[2018-07-14] MEDS: Melatonin 3 MG TAB PO PRN (20:17)
[2018-07-15] MEDS: traMADol HCl 50 MG TAB PO SCH ×3 (05:28→17:39)
[2018-07-15] MEDS: Ibuprofen 600 MG TAB PO SCH ×3 (05:28→22:52)
[2018-07-15] MEDS: Acetaminophen 500 MG TAB PO SCH ×3 (05:28→17:39)
[2018-07-15 05:52] LABS: Anion Gap 10 mmol/L (10-20); BUN (Urea Nitrogen) 38 mg/dL (8.4-25.7); Calc. Creatinine Clearance 43 mL/min (70-130); Calcium 9.2 mg/dL (7.8-10.44); Carbon Dioxide 27 mmol/L (23-31); Chloride 101 mmol/L (98-107); Estimated GFR-MDRD 57; Glucose 133 mg/dL (83-110); Phosphorus 3.6 mg/dL (2.3-4.7); Potassium 4.1 mmol/L (3.5-5.1); Sodium 134 mmol/L (136-145)
[2018-07-15 06:24] LABS: #Lymphocytes 1.3 thou/uL (1.20-3.40); #Monocytes 1.2 thou/uL (0.11-0.59); #Neutrophils 9.5 thou/uL (1.40-6.50); %Eosinophils 0.2 % (0.0-10.0); %Lymphocytes 10.5 % (21.0-51.0); %Monocytes 10.3 % (0.0-10.0); Hemoglobin 8.8 g/dL (14.0-18.0); Mean Corpuscular HGB CONC 32.8 g/dL (32.0-36.0); Mean Corpuscular Hemoglobin 28.4 pg (27.0-31.0); Mean Corpuscular Volume 86.5 fL (78.0-98.0); Mean Platelet Volume 8.5 fL (7.4-10.4); Platelet Count 131 thou/uL (130-400); RBC Distribution Width 15.2 % (11.5-14.5); Red Blood Cell (RBC) Count 3.09 mill/uL (4.70-6.10)
[2018-07-15] MEDS: Senokot S 8.6-50 MG TAB PO SCH ×2 (09:47→19:36)
[2018-07-15] MEDS: Ascorbic Acid 500 mg Chewable Tablet PO SCH ×2 (09:47→19:36)
[2018-07-15] MEDS: Multivit, Therapeutic 1 TAB PO SCH (09:47)
[2018-07-15] MEDS: Carvedilol 25 MG TAB PO SCH ×2 (09:47→19:38)
[2018-07-15] MEDS: Atorvastatin Calcium 10 MG TAB PO SCH (09:47)
[2018-07-15] MEDS: Folic Acid 1 MG TAB PO SCH (09:47)
[2018-07-15] MEDS: Nitrofurantoin Monohyd/M-Cryst 100 MG CAP PO SCH ×2 (09:48→19:36)
[2018-07-15] MEDS: Aspirin 81 mg Enteric Coated Tablet PO SCH ×2 (09:48→19:38)
[2018-07-15] MEDS: Brimonidine Tartrate 0.2% Ophth Soln 5 ml Bottle EA EYE SCH ×3 (09:48→19:34)
[2018-07-15] MEDS: Escitalopram Oxalate 10 mg Tablet PO SCH (09:48)
[2018-07-15] MEDS: Amiodarone 200 MG TAB PO SCH (09:48)
[2018-07-15] MEDS: Dorzolamide HCl 2% Ophth Soln 10 ml Bottle EA EYE SCH ×3 (09:49→19:35)
[2018-07-15] MEDS: Polyethylene Glycol 3350 17 GM Packet PO SCH (09:50)
--- NOTE | 2018-07-15 16:50 | PRG ---
DATE OF SERVICE: 07/15/2018 SUBJECTIVE: This is an 88-year-old gentleman, postop day #2, right hip fracture, right hemiarthroplasty. The patient had no overnight events. The patient's pain seems to be well controlled at this time. The patient is tolerating a mechanical soft diet, although the patient's states that he seems to be coughing a little bit. OBJECTIVE: VITAL SIGNS: Temperature 97.6, pulse 60, respirations 20, SpO2 of 93% on room air, and blood pressure 157/79. GENERAL: This is an elderly gentleman, in no acute distress. The patient is sitting up in the bedside chair. CARDIAC: Regular rate and rhythm. No murmurs. PULMONARY: Bilateral breath sounds clear. No wheezing, rales, or rhonchi. Equal chest excursion. No distress. GASTROINTESTINAL: Abdomen is soft, nontender, and nondistended. EXTREMITIES: Bilateral pedal pulses. Extremities are warm. Sensation intact. LABORATORY DATA: WBC 12.0, RBC 3.09, hemoglobin 8.8, and hematocrit 26.7. Sodium 134, potassium 4.1, chloride 101, BUN 38, creatinine 1.21, estimated GFR 57, glucose 133, calcium 9.2, phosphorus 3.6, and magnesium 2.0. DIAGNOSTICS: There are no diagnostics to review today. ASSESSMENT: 1. Status post mechanical fall from standing without loss of consciousness. 2. Right subcapital fracture of the femoral neck, postop day 2, right hip hemiarthroplasty. 3. History of atrial fibrillation. 4. History of macular degeneration. 5. History of esophageal reflux disease. 6. History of hypertension and history of stroke with residual deficits including swallowing and some weakness on the right side, history of congestive heart failure, history of frequent urinary tract infections. PLAN: We will continue comfort measures and pain regimen. I spoke with Dr. Vallejo, who agrees to accept the patient in [place]. Placement will be tomorrow due to insurance reasons. The patient will remain on his full course of antibiotics for UTI with completion date of July 18. We will continue physical and occupational therapy. We will also consult Speech Therapy and have a swallow study done to ensure the patient is able to tolerate his current mechanical soft diet. Job ID: [id number]
[2018-07-15] MEDS: risperiDONE 0.25 MG TAB PO SCH (19:36)
[2018-07-15] MEDS: Amlodipine 5 MG TAB PO SCH (19:36)
[2018-07-15] MEDS: Finasteride 5 MG TAB PO SCH (19:36)
[2018-07-15] MEDS: Tamsulosin HCl 0.4 MG CAP PO SCH (19:37)
[2018-07-15] MEDS: Famotidine 20 MG TAB PO SCH (19:40)
[2018-07-16] MEDS: traMADol HCl 50 MG TAB PO SCH ×3 (00:10→11:45)
[2018-07-16] MEDS: Acetaminophen 500 MG TAB PO SCH ×3 (00:10→11:44)
[2018-07-16] MEDS: Ibuprofen 600 MG TAB PO SCH ×2 (05:42→14:31)
[2018-07-16] MEDS: Escitalopram Oxalate 10 mg Tablet PO SCH (08:57)
[2018-07-16] MEDS: Carvedilol 25 MG TAB PO SCH (08:57)
[2018-07-16] MEDS: Nitrofurantoin Monohyd/M-Cryst 100 MG CAP PO SCH (08:57)
[2018-07-16] MEDS: Senokot S 8.6-50 MG TAB PO SCH (08:57)
[2018-07-16] MEDS: Amiodarone 200 MG TAB PO SCH (08:57)
[2018-07-16] MEDS: Atorvastatin Calcium 10 MG TAB PO SCH (08:57)
[2018-07-16] MEDS: Aspirin 81 mg Enteric Coated Tablet PO SCH (08:58)
[2018-07-16] MEDS: Polyethylene Glycol 3350 17 GM Packet PO SCH (08:58)
[2018-07-16] MEDS: Multivit, Therapeutic 1 TAB PO SCH (08:58)
[2018-07-16] MEDS: Ascorbic Acid 500 mg Chewable Tablet PO SCH (08:58)
[2018-07-16] MEDS: Dorzolamide HCl 2% Ophth Soln 10 ml Bottle EA EYE SCH ×2 (08:58→14:33)
[2018-07-16] MEDS: Brimonidine Tartrate 0.2% Ophth Soln 5 ml Bottle EA EYE SCH ×2 (08:59→14:31)
[2018-07-16] MEDS: Folic Acid 1 MG TAB PO SCH (09:08)
[2018-07-16 10:02] LABS: #Eosinphils 0.3 thou/uL (0.0-0.7); #Lymphocytes 1.5 thou/uL (1.20-3.40); #Monocytes 1.1 thou/uL (0.11-0.59); #Neutrophils 6.1 thou/uL (1.40-6.50); %Basophils 0.1 % (0.0-1.0); %Lymphocytes 16.3 % (21.0-51.0); %Monocytes 11.9 % (0.0-10.0); %Neutrophils 68.7 % (42.0-75.0); Hemoglobin 11.1 g/dL (14.0-18.0); Mean Corpuscular HGB CONC 32.3 g/dL (32.0-36.0); Mean Corpuscular Hemoglobin 28.3 pg (27.0-31.0); Mean Corpuscular Volume 87.8 fL (78.0-98.0); Mean Platelet Volume 8.2 fL (7.4-10.4); Platelet Count 148 thou/uL (130-400); RBC Distribution Width 14.9 % (11.5-14.5); Red Blood Cell (RBC) Count 3.93 mill/uL (4.70-6.10); White Blood Cell (WBC) Count 8.9 thou/uL (4.8-10.8)
[2018-07-16] MEDS ORDERED: Acetaminophen 325 MG TAB PO PRN (14:18)
--- NOTE | 2018-07-16 14:36 | EKG ---
Test Reason : PRE-OP Blood Pressure : / mmHG Vent. Rate : 064 BPM Atrial Rate : 064 BPM P-R Int : 180 ms QRS Dur : 108 ms QT Int : 452 ms P-R-T Axes : 049 -24 070 degrees QTc Int : 466 ms Sinus rhythm with occasional Premature ventricular complexes Nonspecific T wave abnormality Prolonged QT Abnormal ECG Confirmed by UMBERTO RETANA D.O. ([id number]), greeting card editor HIRAM SESAY ([id number]) on 07/16/2018 2:35:59 PM Referred By: Confirmed By:UMBERTO RETANA D.O.
[2018-07-16 15:27] VITALS: BP 169/74; TEMP 97.9
[2018-07-16] MEDS ORDERED: Famotidine 20 MG TAB PO SCH (21:00)
--- NOTE | 2018-07-17 04:06 | DIS ---
DATE OF ADMISSION: 07/13/2018 DATE OF DISCHARGE: 07/16/2018 CONSULTS: Dr. Medina. PROCEDURES: 1. Right hip x-ray, two-view, impression; subcapital right femoral neck fracture with minimal shortening. Severe bone demineralization. 2. Knee x-ray, right, impression; severe degenerative changes of the right knee without acute osseous abnormality. 3. Right femur x-ray, evidence of subcapital fracture of the femoral neck. 4. Chest x-ray, no evidence of acute cardiopulmonary disease. 5. On 07/13/2018, procedure, right hip hemiarthroplasty by Dr. Medina. PRIMARY DIAGNOSIS: Right subcapital fracture of the femoral neck, status post fall from standing. SECONDARY DIAGNOSES: History of atrial fibrillation, macular degeneration, gastroesophageal reflux disease, hypertension, stroke, congestive heart failure, frequent urinary tract infections, and demand ischemia. DISCHARGE MEDICATIONS: 1. Tylenol 1000 mg q.6 hours. 2. Aspirin 81 mg twice a day for one month until followup with Orthopedics. 3. Ibuprofen 600 mg q.8 hours. 4. Macrobid 100 mg oral twice a day, will be completed on 07/18/2018. 5. Senokot-S as needed. 6. Tramadol 50 mg p.o. q.6 hours as needed for pain. 7. Lipitor 10 mg oral daily. 8. MiraLAX as needed. 9. Vitamin C 500 mg oral twice a day. 10. Multivitamins one cap oral daily. 11. Coreg 25 mg twice a day. 12. Risperdal 0.25 mg at bedtime. 13. Cordarone 200 mg daily. 14. Norvasc 2.5 mg at bedtime. 15. Dorzolamide eyedrops one drop each eye three times a day. 16. Lexapro 10 mg daily. 17. Pepcid 20 mg at bedtime. 18. Proscar 5 mg at bedtime. 19. Folic acid 1 mg daily. 20. Melatonin 3 mg at bedtime. 21. K-Dur 20 mEq daily. 22. Flomax 0.4 mg oral at bedtime. There are no discontinued medications. HISTORY OF PRESENT ILLNESS AND HOSPITAL COURSE: This is an 88-year-old gentleman, who had a fall from standing, when he was transferring himself from chair to couch. The patient has a history of poor vision, he missed the couch and sat down too hard on the floor. The patient was unable to bear weight on his right leg. The patient presented to the emergency department and denied any loss of consciousness or hitting his head. The patient also denied any chest pain, shortness of breath, or palpitations prior to falling. On the day of discharge, the patient was seen and evaluated. The patient had no complaint nor did the family. The patient's vital signs were stable on the day of discharge, and exam was unremarkable including cardiopulmonary and GI exam. The patient was deemed stable for discharge to [facility] for continued physical and occupational therapy. The plan was discussed with the attending physician, who also agreed. DISPOSITION: Stable. DISCHARGE INSTRUCTIONS: LOCATION: [facility], [place]. DIET: Regular diet with soft mechanical, medications per PEG tube. ACTIVITY: Weightbearing as tolerated in right lower extremity. FOLLOWUP: Follow up with Dr. Medina as directed. This is just a summary of the hospital course. Job ID: [id number] [facility]
[2018-07-17] MEDS ORDERED: Potassium Chloride 20 MEQ TAB PO SCH (09:00)
== END 2018-07-16 15:47 | DRG 470 ==
LOC: ERS 07:35 → SDC 11:47 → SJJU 11:49 → SURG B 20:16 → SURG A 07-15 15:03 → SURG B 07-15 15:07
PROVIDERS: ADMIT Surgery; ATTEND Surgery
PROC: 0SRR0J9 Replacement of Right Hip Joint, Femoral Surface with Synthetic Substitute, Cemented, Open Approach (ICD-10-PCS; principal; 2018-07-13)
DX: S72.011A Unspecified intracapsular fracture of right femur, initial encounter for closed fracture (principal); I24.8 Other forms of acute ischemic heart disease; N39.0 Urinary tract infection, site not specified; W18.30XA Fall on same level, unspecified, initial encounter; I48.91 Unspecified atrial fibrillation; K21.9 Gastro-esophageal reflux disease without esophagitis; I11.0 Hypertensive heart disease with heart failure; I50.9 Heart failure, unspecified; H35.30 Unspecified macular degeneration; E83.42 Hypomagnesemia; M17.11 Unilateral primary osteoarthritis, right knee; Z98.42 Cataract extraction status, left eye; Z98.41 Cataract extraction status, right eye; Z79.899 Other long term (current) drug therapy; Z79.82 Long term (current) use of aspirin
CPT/HCPCS: 36415; 51702; 71045; 72170; 80048; 80053; 81003; 81015; 82553; 83735; 84100; 84484; 85025; 85610; 85730; 86850; 86900; 86901; 87077; 87086; 87186; 93005; 94760; 96374; 96375; C1713; C1781; G0390; J0131; J0690; J1030; J1885; J2270; J2405; J2704; J3010; J3475; J3490; S0020